=== PATIENT | female | born 1950 | race Caucasian/White ===

== ENCOUNTER 2021-04-06 10:30 | Outpatient (REF) | payer MEDICARE, SELFPAY ==
--- NOTE | ~2021-04-06 | MM_ITS ---
EXAMINATION: MM SCREENING DIGITAL BREAST TOMOSYNTHESIS, BILATERAL CLINICAL INFORMATION: Screening. Asymptomatic. The lifetime risk of breast cancer based on the Tyrer-Cuzick Model is 5%. COMPARISON: Mammography: 06/29/2019, 01/21/2017, 03/01/2015 TECHNIQUE: Digital breast tomosynthesis is performed in both the craniocaudal and mediolateral oblique views along with computer-aided detection (CAD). Synthesized 2D images are generated from the tomosynthesis. Additional right CC view is provided. FINDINGS: There are scattered areas of fibroglandular density (ACR BI-RADS breast composition Category b). There are no significant masses, abnormal calcifications, or other abnormalities. There is no developing density or interval mass or architectural abnormality. Parenchymal pattern is similar to prior studies. MM/MM tomosynthesis screening BI IMPRESSION: No mammographic evidence of malignancy. ASSESSMENT: BI-RADS 1: Negative RECOMMENDATION: Routine annual mammography screening. This patient's information was entered into a reminder system with a target due date for their next mammogram.
== END 2021-04-06 10:31 | disposition home or self-care (01) ==
LOC: HO.MAMMO 10:30
PROVIDERS: Visit Provider Internal Medicine
DX: Z12.31 Encounter for screening mammogram for malignant neoplasm of breast (principal)
CPT/HCPCS: 77063; 77067

== ENCOUNTER 2021-05-16 12:38 | Outpatient (REF) | payer MEDICARE, SELFPAY ==
[2021-05-16 13:34] LABS: MANUAL DIFF FLAG NO
[2021-05-16 13:42] LABS: Basophils Percent Auto 0.6 % (0-2); Eosinophils Absolute Auto 0.1 X10*3/uL (0.0-0.4); Eosinophils Percent Auto 0.9 % (0-4); Hematocrit 42.4 % (37-47); Hemoglobin 14.1 g/dl (12.0-16.0); Imm Gran Abs Auto 0.02 X10*3/uL (0.00-0.03); Imm Gran Pct Auto 0.3 % (0.0-0.4); Lymphocytes Absolute Auto 1.5 X10*3/uL (1.2-4.9); Lymphocytes Percent Auto 22.2 % (20-40); Mean Corpuscular HGB Conc 33.3 g/dl (31.0-35.0); Mean Corpuscular Hemoglobin 33.8 pg (27.0-33.0); Mean Corpuscular Volume 101.7 fL (80-98); Monocytes Absolute Auto 0.7 X10*3/uL (0.1-1.2); Neutrophils Absolute Auto 4.3 X10*3/uL (2.0-8.3); Platelet Count 244 X10*3/uL (160-400); Red Blood Count 4.17 X10*6/uL (4.20-5.50); Red Cell Distribution Width 12.5 % (11.0-16.0); White Blood Count 6.5 X10*3/uL (4.8-10.8)
[2021-05-16 14:09] LABS: Alanine Aminotransferase 11 U/L (0-31); Albumin Level 4.6 g/dL (3.5-5.0); Alkaline Phosphatase 61 U/L (39-117); Anion Gap 13 (12-20); Aspartate Amino Transferase 20 U/L (5-31); Bilirubin Total 0.6 mg/dL (0.0-1.0); Blood Urea Nitrogen 18 mg/dL (9-16); Calcium 10.2 mg/dL (8.4-10.2); Carbon Dioxide 27 mmol/L (22-29); Chloride 104 mmol/L (96-108); Cholesterol 238 mg/dL; Estimated Glomerular Filt Rate 60; Glucose Fasting 109 mg/dL (60-99); HDL Cholesterol 83 mg/dL; LDL Cholesterol Calculated 136 mg/dl; Potassium 4.1 mmol/L (3.3-5.1); Sodium 140 mmol/L (135-145); Total Protein 7.4 g/dL (6.5-8.0); Triglycerides 97 mg/dL
== END 2021-05-16 12:39 | disposition home or self-care (01) ==
LOC: HO.10HDL 12:38
PROVIDERS: Visit Provider Internal Medicine
DX: Z00.00 Encounter for general adult medical examination without abnormal findings (principal); E11.9 Type 2 diabetes mellitus without complications; E03.9 Hypothyroidism, unspecified
CPT/HCPCS: 36415; 80053; 80061; 84443; 85025

== ENCOUNTER 2022-05-08 10:56 | Outpatient (REF) | payer MEDICARE, SELFPAY ==
--- NOTE | ~2022-05-08 | MM_ITS ---
EXAMINATION: MM SCREENING DIGITAL BREAST TOMOSYNTHESIS, BILATERAL CLINICAL INFORMATION: Screening. Asymptomatic. The lifetime risk of breast cancer based on the Tyrer-Cuzick Model is 7%. COMPARISON: Mammography: 04/06/2021, 06/29/2019 TECHNIQUE: Digital breast tomosynthesis is performed in both the craniocaudal and mediolateral oblique views along with computer-aided detection (CAD). Synthesized 2D images are generated from the tomosynthesis. Additional right CC and right MLO views are provided. FINDINGS: There are scattered areas of fibroglandular density (ACR BI-RADS breast composition Category b). There are no significant masses, abnormal calcifications, or other abnormalities. No developing density or architectural abnormality. The axilla and skin contours are unremarkable. MM/MM tomosynthesis screening BI IMPRESSION: No mammographic evidence of malignancy. ASSESSMENT: BI-RADS 1: Negative RECOMMENDATION: Routine annual mammography screening. This patient's information was entered into a reminder system with a target due date for their next mammogram.
== END 2022-05-08 10:57 | disposition home or self-care (01) ==
LOC: HO.MAMMO 10:56
PROVIDERS: PCP Internal Medicine; Visit Provider Internal Medicine
DX: Z12.31 Encounter for screening mammogram for malignant neoplasm of breast (principal)
CPT/HCPCS: 77063; 77067

== ENCOUNTER 2022-12-05 09:15 | Outpatient (REF) | payer MEDICARE, SELFPAY ==
--- NOTE | ~2022-12-05 | XR_ITS ---
EXAMINATION: XR HIP, RIGHT CLINICAL INFORMATION: Pain COMPARISON: None TECHNIQUE: Two views of the right hip. FINDINGS: Mild degenerative osteoarthritic changes of the right hip evident by sclerotic changes of the acetabular roof and developed small osteophytes. No fracture or dislocation, adjacent pelvic bones are intact. Surrounding soft tissues unremarkable. XR/XR hip RT min 2V IMPRESSION: * Mild degenerative osteoarthritis. * No fracture.
[2022-12-05 09:28] LABS: MANUAL DIFF FLAG NO
[2022-12-05 09:42] LABS: Basophils Absolute Auto 0.1 X10*3/uL (0.0-0.2); Basophils Percent Auto 0.7 % (0-2); Eosinophils Absolute Auto 0.1 X10*3/uL (0.0-0.4); Eosinophils Percent Auto 1.2 % (0-4); Hematocrit 41.7 % (37.0-47.0); Hemoglobin 13.9 g/dl (12.0-16.0); Imm Gran Abs Auto 0.03 X10*3/uL (0.00-0.03); Imm Gran Pct Auto 0.4 % (0.0-0.4); Lymphocytes Absolute Auto 1.5 X10*3/uL (1.2-4.9); Lymphocytes Percent Auto 17.9 % (20-40); Mean Corpuscular HGB Conc 33.3 g/dl (31.0-35.0); Mean Corpuscular Hemoglobin 31.7 pg (27.0-33.0); Mean Platelet Volume 9.7 fL (9.4-12.3); Monocytes Absolute Auto 0.5 X10*3/uL (0.1-1.2); Neutrophils Absolute Auto 6.2 x10*3/uL (2.0-8.3); Neutrophils Percent Auto 73.8 % (45-73); Platelet Count 209 X10*3/uL (160-400); Red Blood Count 4.39 X10*6/uL (4.20-5.50); Red Cell Distribution Width 12.7 % (11.0-16.0); White Blood Count 8.4 X10*3/uL (4.8-10.8)
[2022-12-05 10:31] LABS: Alanine Aminotransferase 13 U/L (0-31); Albumin Level 4.7 g/dL (3.5-5.0); Alkaline Phosphatase 79 U/L (39-117); Anion Gap 11 (12-20); Aspartate Amino Transferase 21 U/L (5-31); Bilirubin Total 0.5 mg/dL (0.0-1.0); Blood Urea Nitrogen 15 mg/dL (9-16); Calcium 10.2 mg/dL (8.4-10.2); Carbon Dioxide 28 mmol/L (22-29); Chloride 106 mmol/L (96-108); Cholesterol 258 mg/dL; Estimated Glomerular Filt Rate > 60; Glucose Fasting 115 mg/dL (60-99); HDL Cholesterol 71 mg/dL; LDL Cholesterol Calculated 162 mg/dl; Potassium 4.2 mmol/L (3.3-5.1); Sodium 141 mmol/L (135-145); Total Protein 7.5 g/dL (6.5-8.0); Triglycerides 128 mg/dL
[2022-12-05 10:35] LABS: Thyroid Stimulating Hormone 1.32 uIU/mL (0.32-4.0)
== END 2022-12-05 09:16 | disposition home or self-care (01) ==
LOC: HO.LAB 09:15
PROVIDERS: PCP Internal Medicine; Visit Provider Internal Medicine
DX: M25.551 Pain in right hip (principal); E03.9 Hypothyroidism, unspecified; E78.5 Hyperlipidemia, unspecified; N28.9 Disorder of kidney and ureter, unspecified; D64.9 Anemia, unspecified
CPT/HCPCS: 36415; 73502; 80053; 80061; 84443; 85025

== ENCOUNTER 2023-05-10 11:15 | Outpatient (REF) | payer MEDICARE, SELFPAY ==
--- NOTE | ~2023-05-10 | MM_ITS ---
EXAMINATION: MM SCREENING DIGITAL BREAST TOMOSYNTHESIS, BILATERAL CLINICAL INFORMATION: Screening. Asymptomatic. The lifetime risk of breast cancer based on the Tyrer-Cuzick Model is 6%. COMPARISON: Mammography: 05/08/2022, 04/06/2021, 06/29/2019, 01/21/2017, 03/01/2015 TECHNIQUE: Digital breast tomosynthesis is performed in both the craniocaudal and mediolateral oblique views along with computer-aided detection (CAD). Synthesized 2D images are generated from the tomosynthesis. FINDINGS: There are scattered areas of fibroglandular density (ACR BI-RADS breast composition Category b). Breast tissue composition borders on heterogeneously dense in the upper outer quadrants. Parenchymal pattern is similar to prior studies and there is no developing density or interval architectural abnormality. There is fine fibronodular parenchymal pattern without significant mass, or abnormal calcifications, or other abnormalities. The axilla and skin contours are unremarkable. MM/MM tomosynthesis screening BI IMPRESSION: No mammographic evidence of malignancy. ASSESSMENT: BI-RADS 2: Benign RECOMMENDATION: Routine annual mammography screening. This patient's information was entered into a reminder system with a target due date for their next mammogram.
== END 2023-05-10 11:16 | disposition home or self-care (01) ==
LOC: HO.MAMMO 11:15
PROVIDERS: PCP Internal Medicine; Visit Provider Internal Medicine
DX: Z12.31 Encounter for screening mammogram for malignant neoplasm of breast (principal)
CPT/HCPCS: 77063; 77067

== ENCOUNTER 2023-07-25 16:18 | Outpatient (AMB) | payer MEDICARE, SELFPAY ==
[2023-07-25 16:24] VITALS: BP 118/72; BMI 22.2
--- NOTE | 2023-07-25 16:24 | MHC.PC.OV ---
Vital Signs 07/25/23 16:24 Height 4 ft 11.25 in Weight 111 lb BMI 22.2 BP 118/72 Blood Pressure Location Lt brachial Position Sitting Intake Visit Reasons: Trans. of Care from [facility] Intake Note: Patient here transferring of care from 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 Accompanied by: Self / Same As Patient Allergies Penicillins [PENICILLINS] Allergy (Intermediate, Verified 07/25/23 16:41) RASH penicillin V Allergy (Unknown, Verified 07/25/23 16:41) rash clams [CLAMS] Adverse Reaction (Intermediate, Verified 07/25/23 16:41) NAUSEA Medication List - Last Reconciled 07/25/23 by Bárbara Mehta MD alendronate 70 mg PO QWEEK latanoprost 0.005% 1 drp ophthalmic (eye) BEDTIME sertraline 100 mg PO DAILY timolol maleate 0.5% drps ophthalmic (eye) Tobacco use date assessed: 12/03/22 Fall risk assessment: No Falls in past year Last assessed Fall Risk: 07/25/23 Dental Screening Dental Screen Date: 07/25/23 Did you have a dental visit in the last 12 months?: Yes Did you have a dental problem in the last 6 months where you did not have access to dental care?: No Was dental information given to patient?: Patient has dentist HPI HPI Comments History of Present Illness Details This is a 72-year-old female with osteoporosis and pure hypercholesterolemia that comes today to establish care. On alendronate for the last 2 years and I told her that alendronate has to complete 5 years. Will have bone density soon. Last cholesterol was elevated and I will recheck lipid panel. Complains of a skin lesion that has 2 different colors. Will be referred to dermatology. She drinks alcohol daily and was advise to cut down in drinking alcohol. [facility] Surgical History History of wisdom tooth extraction History of rectal polypectomy Family History Father Heart attack Mother Ovarian cancer Maternal Grandmother Breast cancer Social History Housing: House Alcohol intake: current Alcohol intake frequency: a few times a week Alcohol type: beer Patient Tobacco Use Status: Current everyday Tobacco user Cigarettes Per Day: 10 e-Cigarette/Vaping Use: Never Used Second Hand Smoke Exposure: No service: No Current occupational status: retired Cognitive needs: No Hearing needs: No Vision needs: No Questionnaire PHQ-9 Over the last 2 weeks, how often have you been bothered by any of the following problems? 1. Little interest or pleasure in doing things: not at all 2. Feeling down, depressed, or hopeless: not at all 3. Trouble falling or staying asleep, or sleeping too much: not at all 4. Feeling tired or having little energy: not at all 5. Poor appetite or overeating: not at all 6. Feeling bad about yourself - or that you are a failure or have let yourself or your family down: not at all 7. Trouble concentrating on things, such as reading the newspaper or watching television: not at all 8. Moving or speaking so slowly that other people could have noticed. Or the opposite - being so fidgety or restless that you have been moving around a lot more than usual: not at all 9. Thoughts that you would be better off or of hurting yourself in some way: not at all Total score: 0 Depression Screening Interpretation: Negative 15381 - PHQ-9 Billing: Yes Source: Developed by Drs. Biju Cueva, Lianet Robertson, Torey Jenkins and colleagues, with an educational damian from [employer]. Thrive Questionnaire Date Thrive assessed: 07/25/23 I am a: Patient What is your living situation today?: I have a steady place to live Within the past 12 months, did the food you bought not last and you didn't have the money to get more?: Never true Within the past 12 months, did you worry whether your food would run out before you got money to buy more?: Never true Do you have trouble paying for medicines?: No Do you have trouble getting transportation to medical appointments?: No Do you have trouble paying your heating and electricity bill?: No Do you have trouble taking care of your child, family member or friend?: No Do you have trouble with day-to-day activities such as bathing, preparing meals, shopping, managing finances, etc.?: No Are you currently unemployed and looking for a job?: No Are you interested in more education?: No Please select the resources that you would like help with: None Currently or been in a relationship where the following occur: no concerns reported AUDIT C Alcohol Use Questionnaire (AUDIT-C) 1. How often do you have a drink containing alcohol?: 4 or more times a week 2. How many drinks containing alcohol do you have on a typical day when you are drinking?: 1 or 2 3. How often do you have six or more drinks on one occasion?: Never Total Score: 4 MAREK-7 AMB Questionnaire MAREK-7 Date MAREK - 7 assessed: 07/25/23 Feeling nervous, anxious, or on edge: 0 = Not at all Not being able to stop or control worryin = Not at all Worrying too much about different things: 0 = Not at all Trouble relaxin = Not at all Being so restless that it is hard to sit still: 0 = Not at all Becoming easily annoyed or irritable: 0 = Not at all Feeling afraid as if something awful might happen: 0 = Not at all Total MAREK-7 score (0-4 normal; 5-9 mild; 10-14 moderate; 15-21 severe): 0 Source: Developed by Drs. Biju Cueva, Lianet Robertson, Torey Jenkins and colleagues, with an educational damian from [employer]. MAREK-7 Assessment Billing MAREK-7 Assessment Tool: MAREK-7 Assessment 55613 Review of Systems Const All systems reviewed & are unremarkable except as noted in HPI and below Eyes Reports no additional complaints, Denies change in vision and Denies other visual disturbances Card Denies chest pain at rest, Denies chest pain with activity, Denies edema, Denies irregular heart rhythm, Denies claudication, Denies dyspnea, Denies dyspnea on exertion, Denies orthopnea, Denies paroxysmal nocturnal dyspnea and Denies slow heart rate Resp Denies cough, Denies dyspnea and Denies dyspnea on exertion GI Denies abdominal pain, Denies change in bowel habits, Denies excessive flatus, Denies nausea and Denies vomiting Denies urinary incontinence, Denies urinary hesitancy and Denies urinary urgency Musc Denies abnormal gait, Denies atrophy, Denies deformity and Denies limited range of motion Skin/Breast Denies bleeding lesions, Denies changing lesions and Denies rash Neuro Denies abnormal gait and Denies lack of coordination Physical exam (Primary Care) Vital Signs: Last Vital Signs BP 118/72 07/25/23 16:24 BMI result Body Mass Index 22.2 Tobacco/Smoking Status: Tobacco use Status Tobacco use date assessed 12/03/22 07/25/23 16:32 Patient Tobacco Use Status Current everyday Tobacco 07/25/23 16:32 e-Cigarette/Vaping Use Never Used 07/25/23 16:32 PHQ-9: PHQ-9 Score PHQ-9: Total score 0 07/25/23 16:53 Depression Screening Interpretation: Negative Thrive Assessment: Date of Thrive Assessment Date Thrive assessed 07/25/23 07/25/23 16:32 Currently or been in a relationship where the following occur: no concerns reported Eyes General: appearance normal, both eyes and all related structures Eyelids: Yes eyelids normal Conjunctivae: conjunctivae normal Neck Neck: Yes normal visual inspection and Yes supple Resp Effort & Inspection: normal respiratory effort Auscultation: clear to auscultation bilaterally Cardio Jugular venous distension: no JVD Rate: regular rate Rhythm: regular rhythm Heart sounds: S1 normal heart sound present and S2 normal heart sound present GI Inspection: Yes normal to inspection Palpation (GI): Soft to palpation and nontender Auscultation: normal bowel sounds Extrem General: Yes full ROM Assessment and Plan Assessment & Plan (1) Osteoporosis: Code(s): M81.0 - Age-related osteoporosis without current pathological fracture Plan: Continue Alendronate. (2) Pure hypercholesterolemia: Code(s): E78.00 - Pure hypercholesterolemia, unspecified Plan: Repeat lipid panel. (3) Skin lesion: Code(s): L98.9 - Disorder of the skin and subcutaneous tissue, unspecified Plan: Refer to dermatology. Orders: Orders Comprehensive [place]. Panel Fast 07/25/23 F10.10 - Alcohol abuse, uncomplicated Vitamin B12 and Folate 07/25/23 E53.8 - Deficiency of other specified B group vitamins Thyroid Stimulating Hormone 07/25/23 R41.3 - Other amnesia Referrals Dermatology Referral L98.9 - Disorder of the skin and subcutaneous tissue, unspecified Coding Level of Care Code Est Pt Level 3 (20474) Diagnoses Osteoporosis M81.0 Pure hypercholesterolemia E78.00 Skin lesion L98.9 Additional Codes MAREK-7 Assessment Billing - MAREK-7 Assessment Tool: MAREK-7 Assessment 15745 ([id number]) Time Spent (min) 19
== END 2023-07-25 17:01 | disposition home or self-care (01) ==
PROVIDERS: PCP Internal Medicine; Visit Provider Internal Medicine
DX: M81.0 Age-related osteoporosis without current pathological fracture (principal); E78.00 Pure hypercholesterolemia, unspecified; L98.9 Disorder of the skin and subcutaneous tissue, unspecified
CPT/HCPCS: 99213

== ENCOUNTER 2023-08-02 11:29 | Outpatient (REF) | payer MEDICARE, SELFPAY ==
[2023-08-02 13:24] LABS: Folate 16.3 ng/mL (> or = 4.0); Vitamin B12 701 pg/mL (200-900)
[2023-08-02 14:23] LABS: Alanine Aminotransferase 15 U/L (0-31); Albumin Level 4.9 g/dL (3.5-5.0); Alkaline Phosphatase 51 U/L (39-117); Anion Gap 16 (12-20); Aspartate Amino Transferase 24 U/L (5-31); Bilirubin Total 0.4 mg/dL (0.0-1.0); Blood Urea Nitrogen 15 mg/dL (9-16); Calcium 9.9 mg/dL (8.4-10.2); Carbon Dioxide 24 mmol/L (22-29); Chloride 104 mmol/L (96-108); Estimated Glomerular Filt Rate > 60; Glucose Fasting 90 mg/dL (60-99); Potassium 3.7 mmol/L (3.3-5.1); Sodium 140 mmol/L (135-145); Total Protein 7.9 g/dL (6.5-8.0)
== END 2023-08-02 11:30 | disposition home or self-care (01) ==
LOC: HO.LAB 11:29
PROVIDERS: PCP Internal Medicine; Visit Provider Internal Medicine
DX: R41.3 Other amnesia (principal); E53.8 Deficiency of other specified B group vitamins; F10.10 Alcohol abuse, uncomplicated
CPT/HCPCS: 36415; 80053; 82607; 82746; 84443

== ENCOUNTER 2024-04-16 11:44 | Outpatient (REF) | payer MEDICARE, SELFPAY | END 2024-04-16 11:45 | disposition home or self-care (01) | LOC: HO.HOSX 11:44 | PROVIDERS: Visit Provider Physician Assistant | DX: Z13.89 Encounter for screening for other disorder (principal) ==

== ENCOUNTER 2024-04-17 08:49 | Outpatient (AMB) | payer MEDICARE, SELFPAY ==
--- NOTE | 2024-04-17 09:16 | A.OFFVIS_ITS ---
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 Pain is felt in the groind of the right hip and wraps around the lateral aspect of the right hip. She also complaints of right knee pain. Pain described as a toothache, a constant aching/throbbing pain. She has tried and failed Aleve, Tylenol and application of Biofreeze with minimal relief. She is active in her garden. She doeds have osteoporosis and was taking Alendronate but discontinued this recently as she is only supposed to be taking this for 5 years. 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 She currently states she has constant throbbing ?toothache? type pain at the lateral aspect of her hip. She finds no relief with Aleve, Tylenol and minimal relief with application of Biofreeze. She is active in her garden. She has a history of osteoporosis. [facility] Surgical History History of wisdom tooth extraction History of rectal polypectomy Family History Father Heart attack Mother Ovarian cancer Maternal Grandmother Breast cancer Social History Housing: House Alcohol intake: current Alcohol intake frequency: a few times a week Alcohol type: beer Patient Tobacco Use Status: Current everyday Tobacco user Cigarettes Per Day: 10 e-Cigarette/Vaping Use: Never Used Second Hand Smoke Exposure: No service: No Current occupational status: retired Cognitive needs: No Hearing needs: No Vision needs: No Review of Systems Const All systems reviewed & are unremarkable except as noted in HPI and below Physical Exam Vital Signs: BMI result Body Mass Index 25.2 Const General: cooperative, healthy appearing, comfortable, no acute distress, well developed and alert Orientation/consciousness: patient oriented x3 HEENT Head: Yes normal to inspection, Yes normocephalic and Yes atraumatic Eyes General: appearance normal, both eyes and all related structures Resp Effort & Inspection: normal respiratory effort and able to speak in complete sentences Cardio Rate: regular rate Peripheral pulses: Peripheral pulses 2+ throughout GI Palpation (GI): Soft to palpation Skin Lesions: no lesions Rashes: no rashes Neuro General: patient oriented x3 Extrem Other: Right hip: Normal to inspection, ambulates with a slight limp. Has mild disco mfort with internal and extension rotation of hip. No significant stiffness. Mild discomfort with hip flexion against resistance. NVI. Results Reviewed Results Reviewed: XR hip RT min 2V IMPRESSION: * Mild degenerative osteoarthritis. * No fracture. Assessment & Plan Assessment & Plan (1) Osteoarthritis of right hip: Code(s): M16.11 - Unilateral primary osteoarthritis, right hip Category: Medical Plan We discussed options which include PT, NSAIDs and injections. The patient would like to proceed with intra-articular hip injection which will be obtained at the hospital under fluro. An order for PT wa also placed. She will contact our office 6 weeks post injection if symptoms persist and meet with Dr Ambrosio to discuss further options. Orders: Orders FL arthrogram hip RT 04/17/24 M16.11 - Unilateral primary osteoarthritis, right hip PT Evaluation and Treatment 04/17/24 M16.9 - Osteoarthritis of hip, unspecified XR hip RT min 2V 04/17/24 M25.551 - Pain in right hip Patient Instructions: Scribed for Pee Burns PA-C, by Claudy Marquez medical claims processor, on 04/17/2024 at 9:00 AM EST.? I, Pee Burns PA-C, have personally reviewed and agree with the information entered by the scribe. Coding Level of Care Code New Pt Level 3 (20967) Diagnoses Osteoarthritis of right hip M16.11
[2024-04-17 09:17] VITALS: BMI 25.2
== END 2024-04-17 10:28 | disposition home or self-care (01) ==
LOC: HO.HOS 08:49
PROVIDERS: PCP Internal Medicine; Visit Provider Physician Assistant
DX: M16.11 Unilateral primary osteoarthritis, right hip (principal)
CPT/HCPCS: 99203

== ENCOUNTER 2024-04-17 21:43 | Outpatient (REF) | payer MEDICARE, SELFPAY ==
--- NOTE | ~2024-04-17 | XR_ITS ---
EXAMINATION: XR HIP, RIGHT CLINICAL INFORMATION: Pain in right hip. COMPARISON: 12/05/2022. TECHNIQUE: AP view of the pelvis and 2 views of the right hip. FINDINGS: The bones are diffusely demineralized. Severe degenerative changes in the imaged lower lumbar spine. Bilateral sacroiliac joints are symmetric. Mild osteoarthritic changes right hip with joint space narrowing and acetabular hypertrophic change. Increased faint calcifications/ossifications adjacent to the greater trochanter. Alignment maintained. Mild degenerative changes on single AP view of the left hip. XR/XR hip RT min 2V IMPRESSION: 1. Mild osteoarthritic changes in the right hip. Increased faint calcifications/ossifications adjacent to the greater trochanter. 2. Severe degenerative changes in the imaged lower lumbar spine. 3. Additional imaging with CT scan or MRI should be considered for additional evaluation if there is clinical concern for fracture or other underlying pathology as these modalities are much more sensitive for detection of fracture or other underlying pathology.
== END 2024-04-17 21:44 | disposition home or self-care (01) ==
LOC: HO.HOSX 21:43
PROVIDERS: Visit Provider Physician Assistant
DX: M16.11 Unilateral primary osteoarthritis, right hip (principal)
CPT/HCPCS: 73502; 99202

== ENCOUNTER 2024-05-13 13:19 | Outpatient (REF) | payer MEDICARE, SELFPAY ==
--- NOTE | ~2024-05-13 | FL_ITS ---
FLUOROSCOPIC RIGHT HIP INTRA-ARTICULAR STEROID INJECTION INDICATIONS: Right hip pain. PROCEDURE: Risks and benefits and possible complications were discussed with the patient and the consent form was signed. The patient was placed hip on the fluoroscopy table. The right hip was prepped and draped in normal sterile fashion. 1% buffered lidocaine was used for anesthesia. A 22-gauge spinal needle was used to access the right hip joint. Intra-articular position of the needle within the hip joint was verified using 3 cc of Omnipaque 300. A total of 5 mL of 1% lidocaine and 80 mg Depo-Medrol was then injected into the hip joint. The needle was then removed and a Band-Aid was applied to the injection site. The patient tolerated the procedure well. There were no immediate complications. FL/FL arthrogram hip RT IMPRESSION: Successful fluoroscopic guided right hip intra-articular steroid injection. The procedure was performed by Reid Walker PA-C, and directly supervised by Dr. Lane.
== END 2024-05-13 13:20 | disposition home or self-care (01) ==
LOC: HO.XRAY 13:19
PROVIDERS: PCP Internal Medicine; Visit Provider Physician Assistant
DX: M16.11 Unilateral primary osteoarthritis, right hip (principal)
CPT/HCPCS: 27093; 73525

== ENCOUNTER → 2024-05-13 13:21 | Outpatient (BNV) | payer MEDICARE, SELFPAY | PROVIDERS: PCP Internal Medicine; Visit Provider Physician Assistant Surgical | DX: M16.11 Unilateral primary osteoarthritis, right hip (principal) | CPT/HCPCS: 20610; 77002 ==

== ENCOUNTER 2024-05-15 11:18 | Outpatient (REF) | payer MEDICARE, SELFPAY | END 2024-05-15 11:19 | disposition home or self-care (01) | LOC: HO.MAMMO 11:18 | PROVIDERS: PCP Internal Medicine; Visit Provider Internal Medicine | DX: Z12.31 Encounter for screening mammogram for malignant neoplasm of breast (principal) | CPT/HCPCS: 77063; 77067 ==

== ENCOUNTER → 2024-05-15 11:30 | Outpatient (BNV) | payer MEDICARE, SELFPAY | PROVIDERS: PCP Internal Medicine; Visit Provider Radiology Diagnostic Radiology | DX: Z12.31 Encounter for screening mammogram for malignant neoplasm of breast (principal) | CPT/HCPCS: 77063; 77067 ==

== ENCOUNTER 2024-05-27 08:14 | Outpatient (AMB) | payer MEDICARE, SELFPAY ==
[2024-05-27 08:20] VITALS: BP 136/90; PULSE 94; O2SAT 96; BMI 22.0
--- NOTE | 2024-05-27 08:20 | MHC.PC.OV ---
Vital Signs 05/27/24 08:20 Height 4 ft 11.06 in Weight 109 lb 0.6 oz BMI 22.0 BP 136/90 H Blood Pressure Location Lt brachial Position Sitting Pulse 94 Pulse Source Pulse Oximeter Pulse Oximetry (%) 96 Oxygen Delivery Method Room Air Intake Visit Reasons: Annual PE Intake Note: Patient is here today for a physical. [employer] Supervisor Required: No Accompanied by: Self / Same As Patient Allergies Penicillins [PENICILLINS] Allergy (Intermediate, Verified 05/27/24 08:52) RASH penicillin V Allergy (Unknown, Verified 05/27/24 08:52) rash clams [CLAMS] Adverse Reaction (Intermediate, Verified 05/27/24 08:52) NAUSEA Medication List - Last Reconciled 05/27/24 by Bárbara Mehta MD latanoprost 0.005% 1 drp ophthalmic (eye) BEDTIME sertraline 100 mg PO DAILY timolol maleate 0.5% drps ophthalmic (eye) Tobacco use date assessed: 05/27/24 Fall risk assessment: No Falls in past year Last assessed Fall Risk: 05/27/24 Dental Screening Dental Screen Date: 05/27/24 Did you have a dental visit in the last 12 months?: Yes Did you have a dental problem in the last 6 months where you did not have access to dental care?: No Was dental information given to patient?: Patient has dentist HPI HPI Comments History of Present Illness Details This is a 73-year-old female that comes for her physical exam. Last Pap smear was 2018. Last DEXA scan was 2018 showing osteoporosis and has been on alendronate since 2015 which this was discontinue this year. I will order another DEXA scan. Last colonoscopy was 2016 and she has history of tubular adenomas in the past and I will refer her to Gastroenterology for that matter. Mammogram done last month but results are still pending. [facility] Surgical History History of wisdom tooth extraction History of rectal polypectomy Family History Father Heart attack Mother Ovarian cancer Maternal Grandmother Breast cancer Social History Housing: House Alcohol intake: current Alcohol intake frequency: a few times a week Alcohol type: beer Patient Tobacco Use Status: Current everyday Tobacco user Cigarettes Per Day: 10 e-Cigarette/Vaping Use: Never Used Second Hand Smoke Exposure: No service: No Current occupational status: retired Cognitive needs: No Hearing needs: No Vision needs: No Questionnaire PHQ-9 Over the last 2 weeks, how often have you been bothered by any of the following problems? 1. Little interest or pleasure in doing things: not at all 2. Feeling down, depressed, or hopeless: not at all 3. Trouble falling or staying asleep, or sleeping too much: not at all 4. Feeling tired or having little energy: not at all 5. Poor appetite or overeating: not at all 6. Feeling bad about yourself - or that you are a failure or have let yourself or your family down: not at all 7. Trouble concentrating on things, such as reading the newspaper or watching television: not at all 8. Moving or speaking so slowly that other people could have noticed. Or the opposite - being so fidgety or restless that you have been moving around a lot more than usual: not at all 9. Thoughts that you would be better off or of hurting yourself in some way: not at all Total score: 0 Depression Screening Interpretation: Negative Depression Screening Done: Yes 24844 - PHQ-9 Billing: Yes Source: Developed by Drs. Biju Cueva, Lianet Robertson, Torey Jenkins and colleagues, with an educational damian from [employer]. Thrive Questionnaire Date Thrive assessed: 05/27/24 I am a: Patient What is your living situation today?: I have a steady place to live Within the past 12 months, did the food you bought not last and you didn't have the money to get more?: Never true Within the past 12 months, did you worry whether your food would run out before you got money to buy more?: Never true Do you have trouble paying for medicines?: No Do you have trouble getting transportation to medical appointments?: No Do you have trouble paying your heating and electricity bill?: No Do you have trouble taking care of your child, family member or friend?: No Do you have trouble with day-to-day activities such as bathing, preparing meals, shopping, managing finances, etc.?: No Are you currently unemployed and looking for a job?: No Are you interested in more education?: No Please select the resources that you would like help with: None THRIVE Score: 0 AUDIT C Alcohol Use Questionnaire (AUDIT-C) 1. How often do you have a drink containing alcohol?: 2-4 times a month 2. How many drinks containing alcohol do you have on a typical day when you are drinking?: 1 or 2 3. How often do you have six or more drinks on one occasion?: Never Total Score: 2 MAREK-7 AMB Questionnaire MAREK-7 Date MAREK - 7 assessed: 05/27/24 Feeling nervous, anxious, or on edge: 0 = Not at all Not being able to stop or control worryin = Not at all Worrying too much about different things: 0 = Not at all Trouble relaxin = Not at all Being so restless that it is hard to sit still: 0 = Not at all Becoming easily annoyed or irritable: 0 = Not at all Feeling afraid as if something awful might happen: 0 = Not at all Total MAREK-7 score (0-4 normal; 5-9 mild; 10-14 moderate; 15-21 severe): 0 Source: Developed by Drs. Biju Cueva, Lianet Robertson, Torey Jenkins and colleagues, with an educational damian from [employer]. MAREK-7 Assessment Billing MAREK-7 Assessment Tool: MAREK-7 Assessment 34738 Review of Systems Const All systems reviewed & are unremarkable except as noted in HPI and below Card Denies chest pain at rest, Denies chest pain with activity, Denies edema, Denies irregular heart rhythm, Denies claudication, Denies dyspnea, Denies dyspnea on exertion, Denies orthopnea, Denies paroxysmal nocturnal dyspnea and Denies slow heart rate Resp Denies cough, Denies dyspnea and Denies dyspnea on exertion GI Denies abdominal pain, Denies change in bowel habits, Denies excessive flatus, Denies nausea and Denies vomiting Physical exam (Primary Care) Vital Signs: Last Vital Signs Pulse 94 05/27/24 08:20 BP 136/90 H 05/27/24 08:20 Pulse Ox 96 05/27/24 08:20 Oxygen Delivery Method Room Air 05/27/24 08:20 BMI result Body Mass Index 22.0 Tobacco/Smoking Status: Tobacco use Status Tobacco use date assessed 05/27/24 05/27/24 08:27 Patient Tobacco Use Status Current everyday Tobacco 05/27/24 08:27 e-Cigarette/Vaping Use Never Used 05/27/24 08:27 Are you ready to quit: Yes Tobacco cessation counseling provided: Yes Items discussed: QuitWorks Relapse Prevention: discussed the importance of a supportive environment, discussed negative mood or depression after quitting, weight gain after smoking is common and discussed dietary, exercise and/or lifestyle changes Number of minutes spent counselin CPT code: 13854 - 4-10 Minutes PHQ-9: PHQ-9 Score PHQ-9: Total score 0 05/27/24 08:55 Depression Screening Interpretation: Negative Thrive Assessment: Date of Thrive Assessment Date Thrive assessed 05/27/24 05/27/24 08:27 HENND Head: Yes normal to inspection, Yes normocephalic and Yes atraumatic Ears: external ears normal Eyes General: appearance normal, both eyes and all related structures Eyelids: Yes eyelids normal Conjunctivae: conjunctivae normal Neck Neck: Yes normal visual inspection and Yes supple Resp Effort & Inspection: normal respiratory effort Auscultation: clear to auscultation bilaterally Cardio Jugular venous distension: no JVD Rate: regular rate Rhythm: regular rhythm Heart sounds: S1 normal heart sound present and S2 normal heart sound present GI Inspection: Yes normal to inspection Palpation (GI): Soft to palpation and nontender Auscultation: normal bowel sounds Skin General skin exam: no rashes or lesions noted Neuro General: no focal motor deficits Extrem General: Yes full ROM Psych Appearance: grossly normal Assessment and Plan Assessment & Plan (1) Physical exam: Code(s): Z00.00 - Encounter for general adult medical examination without abnormal findings Plan: Repeat in a year. Orders: Orders Lipid Panel Today Z00.00 - Encounter for general adult medical examination without abnormal findings Comprehensive [place]. Panel Fast Today Z00.00 - Encounter for general adult medical examination without abnormal findings XR DEXA axial skeleton Today N95.9 - Unspecified menopausal and perimenopausal disorder Vitamin D 25-OH Total Today E55.9 - Vitamin D deficiency, unspecified, M81.0 - Age-related osteoporosis without current pathological fracture Referrals Gastroenterology Referral Z12.11 - Encounter for screening for malignant neoplasm of colon Coding Level of Care Code Est Pt Prev Care >65y(45830) Diagnoses Physical exam Z00.00 Additional Codes MAREK-7 Assessment Billing - MAREK-7 Assessment Tool: MAREK-7 Assessment 02974 ([id number]) Vital Signs *Quality* - CPT code: 90667 - 4-10 Minutes ([id number]) Time Spent (min) 31
== END 2024-05-27 09:08 | disposition home or self-care (01) ==
PROVIDERS: PCP Internal Medicine; Visit Provider Internal Medicine
DX: Z00.00 Encounter for general adult medical examination without abnormal findings (principal); F17.210 Nicotine dependence, cigarettes, uncomplicated
CPT/HCPCS: 99397; 99406

== ENCOUNTER 2024-05-27 09:13 | Outpatient (REF) | payer MEDICARE, SELFPAY ==
[2024-05-27 11:15] LABS: Alanine Aminotransferase 22 U/L (0-31); Albumin Level 4.9 g/dL (3.5-5.0); Alkaline Phosphatase 74 U/L (39-117); Anion Gap 14 (12-20); Aspartate Amino Transferase 26 U/L (5-31); Bilirubin Total 0.7 mg/dL (0.0-1.0); Blood Urea Nitrogen 13 mg/dL (9-16); Calcium 10.1 mg/dL (8.4-10.2); Carbon Dioxide 28 mmol/L (22-29); Chloride 103 mmol/L (96-108); Cholesterol 294 mg/dL (<200); Estimated Glomerular Filt Rate > 60; Glucose Fasting 110 mg/dL (60-99); HDL Cholesterol 92 mg/dL (>40); LDL Cholesterol Calculated 181 mg/dL (<100); Potassium 4.2 mmol/L (3.3-5.1); Sodium 141 mmol/L (135-145); Total Protein 8.2 g/dL (6.5-8.0); Triglycerides 109 mg/dL (<150); Vitamin D 25-OH Total 68.1 ng/mL (>30)
== END 2024-05-27 09:14 | disposition home or self-care (01) ==
LOC: HO.10HDL 09:13
PROVIDERS: Visit Provider Internal Medicine
DX: Z00.00 Encounter for general adult medical examination without abnormal findings (principal); E55.9 Vitamin D deficiency, unspecified; M81.0 Age-related osteoporosis without current pathological fracture
CPT/HCPCS: 36415; 80053; 80061; 82306

== ENCOUNTER 2024-06-19 10:51 | Outpatient (REF) | payer MEDICARE, SELFPAY ==
--- NOTE | ~2024-06-19 | MM_ITS ---
EXAMINATION: BONE DENSITOMETRY CLINICAL INDICATION: Unspecified menopausal and perimenopausal disorder. COMPARISON: This is the patient's baseline examination. TECHNIQUE: Using a MR Presta DXA System (software version: 13.1) manufactured by [employer], dual-energy x-ray absorptiometry was performed of the lumbar spine and left hip. The images are of good technical quality. Summary results are attached. FINDINGS: LEFT FEMUR, NECK: BMD 0.702 g/cm2, Z-score -0.2, T-score -2.4, osteopenia. LEFT FEMUR, TOTAL: BMD 0.782 g/cm2, Z-score 0.2, T-score -1.8, osteopenia. AP SPINE L1-L2 (excluding L3 and L4): The data of L1-L4 has been changed to exclude the L3 and L4 vertebral bodies, because degenerative sclerosis at these levels may cause overestimation of lumbar spine density. BMD 1.249 g/cm2, Z-score 2.9, T-score 0.7, normal. IDENTIFIED RISK FACTORS: Osteoporosis, current smoker, height loss, low calcium intake, history of fracture (adult), menopause, osteoporosis. HISTORY OF FRACTURE: Other. MEDICATIONS: Calcium supplements or multivitamin, vitamin D. MM/XR DEXA axial skeleton IMPRESSION: 1. DIAGNOSIS: Osteopenia based on the lowest T-score value of -2.4 in the femoral neck applying World Health Organization criteria. 2. 10-YEAR FRACTURE RISK PREDICTION, FRAX: Major osteoporotic fracture (clinical spine, forearm, hip or shoulder) 23.6%. Hip fracture 10.0%. 3. Treatment Recommendations: NOF guidelines recommend consideration for treatment in postmenopausal women and men age 50 and older presenting with the following: -A hip or vertebral (clinical or morphometric) fracture. -T-score less than or equal to -2.5 at the femoral neck or spine after appropriate evaluation to exclude secondary causes. -Low bone mass at the hip or spine and a 10-year fracture probability by FRAX of greater than or equal to 3% for hip fracture or greater than or equal to 20% for major osteoporotic fracture based on the [place] adapted WHO algorithm. 4. Other Recommendations: All treatment decisions require clinical judgment and consideration of individual patient factors, including patient preferences, comorbidities, previous drug use, risk factors not captured in the FRAX model (e.g. frailty, falls, vitamin D deficiency, increased bone turnover, interval significant decline in bone density) and possible under or overestimation of fracture risk by FRAX. Additional medical evaluation for secondary cause of low bone mineral density may be appropriate. FUTURE SCAN RECOMMENDATION: People with diagnosed cases of osteoporosis or at high risk for fracture should have regular bone mineral density tests. For patients eligible for Medicare, routine testing is allowed once every 2 years. The testing frequency can be increased to one year for patients who have rapidly progressing disease, those who are receiving or discontinuing medical therapy to restore bone mass, or have additional risk factors.
== END 2024-06-19 10:52 | disposition home or self-care (01) ==
LOC: HO.MAMMO 10:51
PROVIDERS: PCP Internal Medicine; Visit Provider Internal Medicine
DX: Z13.820 Encounter for screening for osteoporosis (principal); Z78.0 Asymptomatic menopausal state
CPT/HCPCS: 77080

== ENCOUNTER 2024-07-22 09:08 | Outpatient (AMB) | payer MEDICARE, SELFPAY ==
--- NOTE | 2024-07-22 09:20 | A.OFFVIS_ITS ---
Vital Signs 07/22/24 09:23 Height 4 ft 11 in Weight 111 lb 6 oz BMI 22.5 BP 144/80 H Blood Pressure Location Rt brachial Position Sitting Respiration 16 Pulse 71 Pulse Source Pulse Oximeter Pulse Oximetry (%) 96 Oxygen Delivery Method Room Air Intake Visit Reasons: INP-Cognitive Imp Intake Note: Pt presents for new pt consultation for cognitive impairment. Mfg Assoc Required: No Allergies Penicillins [PENICILLINS] Allergy (Intermediate, Verified 07/22/24 09:22) RASH penicillin V Allergy (Unknown, Verified 07/22/24 09:22) rash clams [CLAMS] Adverse Reaction (Intermediate, Verified 07/22/24 09:22) NAUSEA Medication List - Last Reconciled 07/22/24 by Eugenia Veliz MD calcium carbonate-vitamin D3 500 mg-10 mcg (400 unit) (Oyster Shell Calcium- Vitamin D3) 1 tab PO BID 90 days latanoprost 0.005% 1 drp ophthalmic (eye) BEDTIME sertraline 100 mg PO DAILY timolol maleate 0.5% drps ophthalmic (eye) HPI Comments Details: 73y/o right handed female comes for evaluation of memory issues. she has a sister who is 10 years older than her and has significant memory issues so she is concerned. Her also noticed intermittent memory issues for 2 years.she is here alone for the appointment and feels she does not have difficulties but according to her she has short term memory issues and difficulty recalling words. Patient is a chronic smoker - 25pack years.She denies head injuries. Other that her sister- no other family members with dementia Mood is stable she drinks 1 glass of wine or beer everyday. she denies any sleep issues. 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 [facility] Medical History (Updated 07/22/24 @ 10:24 by Eugenia Veliz MD) Memory loss Pure hypercholesterolemia Skin lesion Mild cognitive impairment Osteoarthritis of right hip Osteopenia Surgical History History of wisdom tooth extraction History of rectal polypectomy Family History Father Heart attack Mother Ovarian cancer Maternal Grandmother Breast cancer Social History Housing: House Alcohol intake: current Alcohol intake frequency: a few times a week Alcohol type: beer Patient Tobacco Use Status: Current everyday Tobacco user Cigarettes Per Day: 10 e-Cigarette/Vaping Use: Never Used Second Hand Smoke Exposure: No service: No Current occupational status: retired Cognitive needs: No Hearing needs: No Vision needs: No Physical Exam Vital Signs: Last Vital Signs Pulse 71 07/22/24 09:23 Resp 16 07/22/24 09:23 BP 144/80 H 07/22/24 09:23 Pulse Ox 96 07/22/24 09:23 Oxygen Delivery Method Room Air 07/22/24 09:23 BMI result Body Mass Index 22.5 Const General: cooperative, healthy appearing and comfortable Nutritional Appearance: average body habitus Orientation/consciousness: patient oriented x3 Eyes Pupils: Equal, round and reactive pupils present Neuro Other: MOCA General: patient oriented x3, gait normal, tone normal, moves all extremities and no focal motor deficits Cranial nerves: Yes Facial sensation intact/muscles of mastication intact, Yes Equal, round and reactive pupils present, Yes Bilaterally intact EOM present, Yes Nystagmus not present, Yes Normal facial strength present, Yes Midline tongue present, Yes Symmetric palate elevation present and Yes Ability to bilaterally elevate shoulders present Cognition (Neuro): normal cognition Gait exam (Neuro): Normal gait present Motor exam (neuro): 5/5 motor strength present throughout and Normal motor muscle tone present throughout Deep tendon reflexes (DTR's): Right triceps reflex intensity grade: 1+, Left triceps reflex intensity grade: 1+, Rt Biceps (C5, C6): 1+, Left biceps reflex intensity grade: 1+, Right brachioradialis reflex intensity grade: 1+, Left brachioradialis reflex intensity grade: 1+, Right patellar reflex intensity grade: 1+ and Left patellar reflex intensity grade: 1+ Coordination: [id number] test normal Psych Appearance: grossly normal Speech and movement: Normal speech and movement present Affect: normal affect Assessment & Plan Assessment & Plan (1) Memory loss: Comment: likely age related she did well on MOCA - see attached Code(s): R41.3 - Other amnesia Category: Medical Plan Reviewed labs [place] brain to r/o white matter disease and other structural causes. F/u as needed Continue exercise Orders: Orders MR head/brain wo con Today R41.3 - Other amnesia Coding Level of Care Code New Pt Level 4 (79873) Diagnoses Memory loss R41.3
[2024-07-22 09:23] VITALS: BP 144/80; PULSE 71; RESP 16; O2SAT 96; BMI 22.5
== END 2024-07-22 10:29 | disposition home or self-care (01) ==
PROVIDERS: PCP Internal Medicine; Visit Provider Psychiatry & Neurology Neurology
DX: R41.3 Other amnesia (principal)
CPT/HCPCS: 99204

== ENCOUNTER → 2024-07-22 09:08 | Outpatient (BNVA) | payer MEDICARE, SELFPAY | PROVIDERS: PCP Internal Medicine; Visit Provider Psychiatry & Neurology Neurology | DX: R41.3 Other amnesia (principal) | CPT/HCPCS: 99202 ==

== ENCOUNTER → 2024-08-09 10:46 | Outpatient (BNV) | payer MEDICARE, SELFPAY | PROVIDERS: PCP Internal Medicine; Visit Provider Radiology Diagnostic Radiology | DX: I67.6 Nonpyogenic thrombosis of intracranial venous system (principal) | CPT/HCPCS: 70551 ==

== ENCOUNTER 2024-08-09 10:51 | Outpatient (REF) | payer MEDICARE, SELFPAY ==
--- NOTE | ~2024-08-09 | MR_ITS ---
EXAMINATION: MR BRAIN WITHOUT CONTRAST CLINICAL INFORMATION: Anosmia. Numbness. Vertigo. COMPARISON: No priors. Correlated to CT dated July 31, 2019. TECHNIQUE: MRI of the brain was obtained using routine sequences without contrast. FINDINGS: Exam submitted for interpretation on 09/15/2024. There is hyperintense T2 and increased FLAIR signal within the lumen of the left sigmoid and transverse sinuses into the left jugular bulb. No restricted diffusion. No acute intracranial hemorrhage, mass effect, midline shift, hydrocephalus or herniation. Gutiérrez-white matter differentiation is normal. Multifocal old lacunar infarcts with a cribriform shaped bladder involving basal ganglia and hill radiata. Sellar/suprasellar region is normal. Craniocervical junction is intact and normal. No air-fluid levels in the included paranasal sinuses. Hyperintense T2 signal in the right mastoid air cells. MR/MR head/brain wo con IMPRESSION: Slow flow versus sinus thrombosis, left sigmoid and transverse sinuses into the left jugular bulb. Discussed with the referring physician on 09/15/2024 at 2:41 PM. Small vessel occlusive disease. No acute stroke/ ischemia Electronically signed by: Nicolas Freeman MD 09/15/2024 02:42 PM EDT
== END 2024-08-09 10:52 | disposition home or self-care (01) ==
LOC: HO.MRI 10:51
PROVIDERS: PCP Internal Medicine; Visit Provider Psychiatry & Neurology Neurology
DX: R41.3 Other amnesia (principal)
CPT/HCPCS: 70551

== ENCOUNTER 2024-08-25 11:09 | Outpatient (REF) | payer MEDICARE, SELFPAY ==
--- NOTE | ~2024-08-25 | CT_ITS ---
EXAMINATION: CT SINUS WITHOUT CONTRAST CLINICAL INFORMATION: Sinonasal polyp, deviated septum. COMPARISON: CT head and facial bones 07/31/2019. TECHNIQUE: Spiral noncontrast CT of the paranasal sinuses and maxillofacial region was performed in axial plane. Examination was carried out from the inferior maxilla to the mid temporal parietal bones, just above the petrous ridges. Sagittal, coronal, and thin section axial reformatted images were reconstructed from the axial data set. This CT examination was performed using dose optimization techniques as appropriate, variously including the following: *Automated exposure control *Adjustment of mA and/or kV according to patient size (this includes techniques or standardized protocols for targeted exams where dose is matched to indication/reason for exam; i.e. extremities or head) *Use of iterative reconstruction technique DLP: 82 mGy-cm FINDINGS: POSTOPERATIVE FINDINGS: MAXILLARY DENTAL FINDINGS: -There is periapical lucency surrounding the root tip of tooth #6, as well as the distal root tips of #3. NASAL CAVITY: -Thickening of the anterosuperior membranous nasal septum, potentially consistent with polyp, measuring approximately 2.7 x 0.9 x 1.0 cm (AP, TRV, CC); (series 2, image 20). -Mild rightward nasal septal deviation with a tiny spur, minimally encroaching upon the right middle meatus. -Posterior nasopharynx normal. TURBINATES: -Middle turbinates are partially paradoxical.. Left lamellar cell. Opacified right lamellar cell. Otherwise they demonstrate normal morphology and appearance. -Inferior turbinates are normal in appearance. -Superior turbinates are normal in appearance. MAXILLARY SINUSES: -There is a small amount of mucosal thickening in the dependent and right posterior lateral maxillary antrum. -The left maxillary sinus is normally aerated. -Both maxillary ostia demonstrate patent air channels. ETHMOID SINUSES: -Minimal patchy mucosal thickening anterior left ethmoid air cells. -Otherwise, anterior and posterior ethmoid cells are normally pneumatized. FRONTAL SINUSES: -Normally pneumatized bilaterally. -Frontal recesses are patent bilaterally. SPHENOID SINUSES: -Normally Pneumatized bilaterally. -Sphenoethmoidal recesses are patent bilaterally. PREOPERATIVE ANATOMY: -There are type III cribriform plates. The right is slightly lower. -The fovea ethmoidalis and lateral lamella are symmetric. -Both anterior ethmoid canals are -Closed and orbital contents appear normal. No discrete extracranial soft tissue abnormality. 876 Surrounded by air. ADDITIONAL FINDINGS: -Mild degenerative changes left TM joint CT/CT sinus wo IV con IMPRESSION: 1. There is periapical lucency surrounding the root tip of tooth #6, as well as the distal root tips of tooth #3. These findings can produce right maxillary sinus symptoms. 2. Minimal right maxillary and anterior left ethmoid paranasal sinus disease. No air-fluid levels or evidence of significant opacification. All major drainage pathways are patent. 3. Suspect small polyp in the anterior membranous nasal septum. 4. Anatomical variations as discussed. Electronically signed by: Enrique Lane MD 10/26/2024 12:48 PM EST
== END 2024-08-25 11:10 | disposition home or self-care (01) ==
LOC: HO.CT 11:09
PROVIDERS: PCP Internal Medicine; Visit Provider Otolaryngology
DX: J33.0 Polyp of nasal cavity (principal); J34.2 Deviated nasal septum
CPT/HCPCS: 70486

== ENCOUNTER → 2024-08-25 11:12 | Outpatient (BNV) | payer MEDICARE, SELFPAY | PROVIDERS: PCP Internal Medicine; Visit Provider Radiology Diagnostic Radiology | DX: J33.9 Nasal polyp, unspecified (principal) | CPT/HCPCS: 70486 ==

== ENCOUNTER 2024-10-02 07:54 | Outpatient (REF) | payer MEDICARE, SELFPAY ==
--- NOTE | ~2024-10-02 | MR_ITS ---
EXAMINATION: MRV with contrast. CLINICAL INFORMATION: Intracranial and intraspinal phlebitis and thrombophlebitis. COMPARISON: No priors. Correlated to MRI brain dated August 09, 2024. TECHNIQUE: Coronal 2-D [id number] and maximum intensity projections with IV contrast administration of gadolinium. Total of 10 cc given without reported immediate complications. Sagittal twist sequences. Sagittal twist with subtraction sequences. FINDINGS: Submitted for interpretation on October 05, 2024. No intraluminal filling defects within the main cerebral venous sinuses. Dominant right transverse and sigmoid sinuses. Internal cerebral veins, vein of Tonny and straight sinuses demonstrate normal enhancement pattern without intraluminal filling defects. MR/MR venography head wo/w con IMPRESSION: No cerebral venous sinus thrombosis. Negative exam. Electronically signed by: Nicolas Freeman MD 10/05/2024 08:00 AM ALIA
[2024-10-02] MEDS: gadobutroL 10 ML VIAL IVPUSH (13:58)
== END 2024-10-02 23:59 | disposition home or self-care (01) ==
LOC: HO.MRI 07:54
PROVIDERS: PCP Internal Medicine; Visit Provider Psychiatry & Neurology Neurology
DX: G08 Intracranial and intraspinal phlebitis and thrombophlebitis (principal)
CPT/HCPCS: 70546; A9585

== ENCOUNTER → 2024-10-02 13:07 | Outpatient (BNV) | payer MEDICARE, SELFPAY | PROVIDERS: PCP Internal Medicine; Visit Provider Radiology Diagnostic Radiology | DX: I67.6 Nonpyogenic thrombosis of intracranial venous system (principal) | CPT/HCPCS: 70546 ==

== ENCOUNTER 2025-01-22 11:32 | Outpatient (REF) | payer MEDICARE, SELFPAY ==
[2025-01-24 10:42] LABS: H Pylori Breath Test Negative (Negative)
== END 2025-01-22 11:33 | disposition home or self-care (01) ==
LOC: HO.LAB 11:32
PROVIDERS: Physician Assistant; PCP Internal Medicine
DX: R10.9 Unspecified abdominal pain (principal); R14.0 Abdominal distension (gaseous); R19.7 Diarrhea, unspecified
CPT/HCPCS: 83013; 99212

== ENCOUNTER 2025-01-22 11:32 | Outpatient (AMB) | payer MEDICARE, SELFPAY ==
[2025-01-22 12:44] VITALS: BP 130/74; PULSE 90; TEMP 36.7; O2SAT 96; BMI 22.4
--- NOTE | 2025-01-22 12:44 | AM.OFFWIN_ITS ---
Intake Vital Signs 01/22/25 12:44 Height 4 ft 11 in Weight 111 lb BMI 22.4 BP 130/74 Blood Pressure Location Lt brachial Position Sitting Pulse 90 Pulse Source Pulse Oximeter Temp 98.1 F Temp Source Oral Pulse Oximetry (%) 96 Oxygen Delivery Method Room Air Intake Visit Reasons: EP severe stomach pain Intake Note: pt is here for severe stomach pain Patient Tobacco Use Status: Current everyday Tobacco user Allergies Penicillins [PENICILLINS] Allergy (Intermediate, Verified 01/22/25 12:57) RASH penicillin V Allergy (Unknown, Verified 01/22/25 12:57) rash clams [CLAMS] Adverse Reaction (Intermediate, Verified 01/22/25 12:57) NAUSEA Do you need a note to return to daycare/school/sports/work: No HPI HPI Comments History of Present Illness Details History of Present Illness - The patient is a 74-year-old female h ere with her presenting with recurrent diarrhea, bloating and abdominal pain. - Episodes began about a month ago, last ing a few days, self resolving, with the third episode happening most recently last weekend. - Diarrhea typically starts at night and is accompanied by bloating and abdominal pain. - The pain is generalized in the abdomin al region, with no specific focus. - Nausea present but no vomiting; absenc e of fever and blood or black in stools noted. - Diet or eating does not appear to lani elate with symptom onset. - Previous use of OTC medications like G aviscon did not alleviate symptoms. - The patient is scheduled for a colonos copy next week. Physical Exam General: Cooperative, healthy appearing, comfortable, no acute distress and well developed Orientation: Patient oriented x3 Limitations: Limited due to abdominal pain Head: Normal to inspection Ears: Hearing grossly normal bilaterally Nose: Normal external nose present Face and sinus: Normal facial exam Eyes: Appearance normal, both eyes and all related structures Neck: Normal visual inspection and Yes full ROM Respiratory: Normal respiratory effort and able to speak in complete sentences. GI: soft, normoactive bs, no TTP, negative Spear's Skin: No rashes or lesions noted Neuro: Patient oriented x3 Extremities: Normal to inspection [facility] Medical History (Updated 01/22/25 @ 13:[address]rie PA-C) Memory loss Pure hypercholesterolemia Skin lesion Mild cognitive impairment Osteoarthritis of right hip Osteopenia Surgical History History of wisdom tooth extraction History of rectal polypectomy Family History Father Heart attack Mother Ovarian cancer Maternal Grandmother Breast cancer Social History Housing: House Alcohol intake: current Alcohol intake frequency: a few times a week Alcohol type: beer Patient Tobacco Use Status: Current everyday Tobacco user Cigarettes Per Day: 10 e-Cigarette/Vaping Use: Never Used Second Hand Smoke Exposure: No service: No Current occupational status: retired Cognitive needs: No Hearing needs: No Vision needs: No Review of Systems Const All systems reviewed & are unremarkable except as noted in HPI and below Physical Exam Vital Signs: Last Vital Signs Temp 98.1 F 01/22/25 12:44 Pulse 90 01/22/25 12:44 BP 130/74 01/22/25 12:44 Pulse Ox 96 01/22/25 12:44 Oxygen Delivery Method Room Air 01/22/25 12:44 BMI result Body Mass Index 22.4 Assessment & Plan Assessment & Plan (1) Abdominal pain in female: Code(s): R10.9 - Unspecified abdominal pain Plan: Due to the patient's recurrent diarrhea, bloating and abdominal pain, I plan to conduct a breath test for Helicobacter pylori infection, suspecting it as a potential cause. If positive, treatment will involve antibiotics as part of a triple therapy regimen. The patient may take Pepto-Bismol for symptomatic relief while waiting for results. A colonoscopy is already scheduled for further gastrointestinal evaluation. Instructed the patient to seek immediate medical attention if her condition worsens or if additional symptoms such as fever or blood in stools occur. Patient was informed and verbally consented to the use of an ambient scribe for clinic note documentation during this visit. (2) Abdominal bloating: Code(s): R14.0 - Abdominal distension (gaseous) Plan: as above (3) Diarrhea: Code(s): R19.7 - Diarrhea, unspecified Qualifiers: Diarrhea type: unspecified type Qualified Code(s): R19.7 - Diarrhea, unspecified Plan: as above Orders: Orders H Pylori Breath Test Today R10.9 - Unspecified abdominal pain, R14.0 - Abdominal distension (gaseous), R19.7 - Diarrhea, unspecified Coding Level of Care Code Est Pt Level 4 (32674) Diagnoses Abdominal pain in female R10.9 Abdominal bloating R14.0 Diarrhea, unspecified type R19.7 Diarrhea type: unspecified type
--- OUTSIDE RECORDS SUMMARY | 2025-01-22 13:28 | XMS_ITS ---
Author Organization [facility] Address [address] [place] [address] Care Team Providers Care Sap Consultant Name Role Phone Bárbara Plummer Primary Care Provider Unavailab Biju Tolliver Unavailable [phone] Allergies Allergen (clinical drug ingredient) Drug/Non Drug Allergy documented on EMR Reaction Allergy Type Onset Date Status Penicillin Unknown Drug Allergy Active REASON FOR VISIT Patient presents today for a COLON SCREENING Medications Medication SIG (Take, Route, Fr equency, Duration) Notes Start Date End Date Status Sertraline HCl 100 MG 1 tablet Orally Once a day Active Multi Vitamin/Minerals Orally Active Timolol Maleate 0.5 % Ophthalmic for 80 Active Latanoprost 0.005 % 1 drop into affected eye in the evening Ophthalmic Once a day Active Problems Problem Type SNOMED Code ICD Code Onset Dates Problem Status W/U Status Risk Notes Problem Pre-procedure evaluation check (525815109) Encounter for other preprocedural examination (Z01.818) Active confirmed Vital Signs Blood pressure systolic 00 mm Hg 10/08/20 24 Blood pressure diastolic 00 mm Hg 024 Height 4 ft 11 in in 10/08/2024 Weight 110 lbs 10/08/2024 BMI 22.21 kg/m2 10/08/2024 Encounters Encounter Location Date Provider Diagnosis [facility] [address] [place] [phone] 10/08/2024 Biju Mccormick History of adenomato us polyp of colon Z86.010 ; Encounter for other preprocedural examination Z01.818 and Encounter for screening for malignant neoplasm of colon Z12.11 Assessments Encounter Date Diagnosis (ICD Code) Assessment Notes Treatment Notes Treatment Clinical Notes Section Notes 10/08/2024 History of adenomatous polyp of colon (ICD-10 - Z86.010) Overall, Radha appears well. Given her personal history of tubular adenomas of the colon and her last colonoscopy being back in 2015, I did recommend a followup colonoscopy for further screening purposes. We did review the rationale for that in regard to colon cancer prevention. Full consent is obtained for this, including risks of bleeding and perforation. The procedure will be done with monitored anesthesia care. Radha was comfortable with this plan. Thank you again for allowing me to participate in Radha's care. I shall continue to keep you advised of her progress. 10/08/2024 Encounter for other preprocedural examination (ICD-10 - Z01.818) Overall, Radha appears well. Given her personal history of tubular adenomas of the colon and her last colonoscopy being back in 2015, I did recommend a followup colonoscopy for further screening purposes. We did review the rationale for that in regard to colon cancer prevention. Full consent is obtained for this, including risks of bleeding and perforation. The procedure will be done with monitored anesthesia care. Radha was comfortable with this plan. Thank you again for allowing me to participate in Radha's care. I shall continue to keep you advised of her progress. 10/08/2024 Encounter for screening for malignant neoplasm of colon (ICD-10 - Z12.11) Overall, Radha appears well. Given her personal history of tubular adenomas of the colon and her last colonoscopy being back in 2015, I did recommend a followup colonoscopy for further screening purposes. We did review the rationale for that in regard to colon cancer prevention. Full consent is obtained for this, including risks of bleeding and perforation. The procedure will be done with monitored anesthesia care. Radha was comfortable with this plan. Thank you again for allowing me to participate in Radha's care. I shall continue to keep you advised of her progress. Plan Of Treatment Future Test Test Name Order Date COLONOSCOPY 10/08/2024 Next Appt Details Follow Up: prn, Reason: Provider Name:Biju Mccormick , 01/27/2025 10:20:00 AM, [address] [place] [address] , [place], [place], [phone], Progress Notes * RADHA SCHMIDT ADOB: [birth year] (73 yo F)Acc No.[id number]:10/08/2024 Progress Notes Patient:RADHA LOUISE Provider:?Biju Mccormick MD :1950???Age:73 Y???Sex:Female D ate:10/08/2024 Address:[address] [place], [place] [id number] Pcp:Bárbara Mehta Subjective: * Chief Complaints: * ???Patient presents today fo r a COLON SCREENING * HPI: ???incontinence:? I saw Radha in the office today for evaluation of her personal history of tubular adenomas of the colon and need for colorectal cancer screening. ?I last saw Radha in 2016, at which time she underwent a followup screening colonoscopy with removal of tubular adenomas. She presently feels well. She enjoys a good appetite and denies any significant heartburn or dysphagia. Her bowel movements have been regular and without any signs of bleeding. She denies abdominal pain, jaundice, nor unintentional weight loss. She denies any known family history of colon cancer. * ROS:?General/Constitutional:?Change in appetite?denies.?Chills?denies.?Fatigue?denies.?Ophthalmologic:?Comments?all negative.?ENT:?Comments?all negative.?Respiratory:?hemoptysis?denies.?Cough?denies.?Cardiovascular:?Chest pain?denies.?Orthopnea?denies.?Gastrointestinal:?Comments?See HPI for details.?Genitourinary:?Hematuria?denies.?Dysuria?denies.?Musculoskeletal:?Painful joints?denies.?Weakness?denies.?Skin:?Itching?denies.?Rash?denies.?Neurologic:?Headache?denies.?Seizures?denies.?Psychiatric:?Comments?all negative.? * Medical History:? * Surgical History:?[place] petr th extraction Cauterization for epistaxis * Hospitalization/Major Diagno stic Procedure:?No Hospitalization History. * Family History:?Father: dece ased, diagnosed with Heart disease.?Mother: .? No colitis, celiac disease, nor colorectal cancer. * Social History:?Tobacco Use:?Tobacco Use/Smoking?Are you a: current smoker , How often do you smoke cigarettes?: every day, How many cigarettes a day do you smoke?: 6-10, How soon after you wake up do you smoke your first cigarette?: after 60 minutes, Are you interested in quitting?: Ready to quit.?Drugs/Alcohol:?Alcohol Screen?Points: 4, Interpretation: Positive.?Miscellaneous:?Marital status: . Occupation: retired. ???Smoker 1/2 ppd; 1-2 drinks per day. * Medications:?TakingSertralin e HCl 100 MG Tablet 1 tablet Orally Once a dayLatanoprost 0.005 % Solution 1 drop into affected eye in the evening Ophthalmic Once a dayMulti Vitamin/Minerals Tablet Orally Timolol Maleate 0.5 % Solution Ophthalmic Taking Sertraline HCl 100 MG Tablet 1 tablet Orally Once a dayTaking Latanoprost 0.005 % Solution 1 drop into affected eye in the evening Ophthalmic Once a dayTaking Multi Vitamin/Minerals Tablet Orally Taking Timolol Maleate 0.5 % Solution Ophthalmic DiscontinuedAlendronate Sodium 70 MG Tablet 1 tablet Orally Once a daySimvastatin 20 MG Tablet 1 tablet in the evening Orally Once a dayAspir-81 81 MG Tablet Delayed Release 1 tablet Orally Once a dayColyte w Flavor Packs 240 GM Solution Reconstituted as directed Orally as directedMedication List reviewed and reconciled with the patientDiscontinued Alendronate Sodium 70 MG Tablet 1 tablet Orally Once a dayDiscontinued Simvastatin 20 MG Tablet 1 tablet in the evening Orally Once a dayDiscontinued Aspir-81 81 MG Tablet Delayed Release 1 tablet Orally Once a dayDiscontinued Colyte w Flavor Packs 240 GM Solution Reconstituted as directed Orally as directedMedication List reviewed and reconciled with the patient * Allergies:?Penicillinyes[All ergies Verified] Objective: * Vitals:?Wt: 110 lbs, Ht: 4 f t 11 in, BMI:22.21 Index, BP: 00/00 mm Hg. * Examination: ???General Examination: ?GENERAL APPEARANCE:?pleasant, well nourished, well developed, in no acute distress.?EYES:?sclera non-icteric.?ORAL CAVITY:?mucosa moist.?NECK/THYROID:?no cervical lymphadenopathy, neck supple.?SKIN:?nonjaundiced, no spider angiomata.?HEART:?S1, S2 normal.?LUNGS:?clear to auscultation bilaterally.?ABDOMEN:?normal bowel sounds, no guarding or rigidity, no guarding or rigidity, no masses palpable, soft, nontender, nondistended.?EXTREMITIES:?no edema.?NEUROLOGIC:?alert and oriented.? Assessment: * Assessment: 1.?Encounter for other prepr ocedural examination - Z01.818 (Primary)?2.?History of adenomatous polyp of colon - Z86.010?3.?Encounter for screening for malignant neoplasm of colon - Z12.11? Overall, Radha appears we ll. Given her personal history of tubular adenomas of the colon and her last colonoscopy being back in 2016, I did recommend a followup colonoscopy for further screening purposes. We did review the rationale for that in regard to colon cancer prevention. Full consent is obtained for this, including risks of bleeding and perforation. The procedure will be done with monitored anesthesia care. Radha was comfortable with this plan. Thank you again for allowing me to participate in Radha's care. I shall continue to keep you advised of her progress. Plan: * Treatment: 2.?Encounter for screening for malignant neoplasm of colon?Procedure: COLONOSCOPY (Ordered for 10/08/2024)* with MACsched for 01/27/25 at 10:20 ammiralax * Procedure Codes:?3017F COLOR ECTAL CA SCREEN DOC [id number] Pt scrn tbco and id as [id number] BP SCR NOT PRFRM REC REASON NOS * Preventive Medicine:? ??Urinary Incontinence:?Urinary Incontinence?Assessment:?Absent,?Plan of care documented:?No, reason not specified.? ??Screenings:?Fall Risk Screening?Fall Risk Assessment:?No falls in the past year,?Screening:?No falls in the past year,?Assessment:?Not performed, no reason specified,?Plan of Care:?Not documented, no reason specified.? * Follow Up:?prn * * Sign off status: Completed true * Provider:?Biju Mccormick MD Date:? 024 Generated for Elliott gotti/Martín/Brittny on:?01/22/2025 01:27 PM EST History and Physical Notes * HPI (History of Present Illness) Category Sub-Category Detail Notes Category Not es incontinence I saw Radha in the office today for evaluation of her personal history of tubular adenomas of the colon and need for colorectal cancer screening. I last saw Radha in 2016, at which time she underwent a followup screening colonoscopy with removal of tubular adenomas. She presently feels well. She enjoys a good appetite and denies any significant heartburn or dysphagia. Her bowel movements have been regular and without any signs of bleeding. She denies abdominal pain, jaundice, nor unintentional weight loss. She denies any known family history of colon cancer. Examination Category Sub-Category Detail Notes Category Not es General Examination GENERAL APPEARANCE: pleasant , well [...]
--- OUTSIDE RECORDS SUMMARY | 2025-01-22 13:28 | XMS_ITS ---
Author Organization [facility] Address [address] [place] [phone] Care Team Providers Care Ec Teacher Name Role Phone Bárbara Plummer Primary Care Provider Unavailab Biju Tolliver Unavailable [phone] REASON FOR VISIT please lock 10-08-24 office note Encounters Encounter Location Date Provider Diagnosis [facility] [address] [place] [phone] 10/28/2024 Biju Mccormick Plan Of Treatment Next Appt Details Provider Name:Biju Mccormick , 01/27/2025 10:20:00 AM, [address] [place] [address] , [place], [place], [phone], Progress Notes * RADHA SCHMIDT ADOB: [birth year] (73 yo F)Acc No.[id number]:10/28/2024 Patient:?RADHA SCHMIDT :1950???Age:73 Y???Sex:Female Address:[place] [address] * true * Date:? Generated for Elliott gotti/Martín/eTransmitting on:?01/22/2025 01:27 PM EST
--- OUTSIDE RECORDS SUMMARY | 2025-01-22 13:28 | XMS_ITS | Patient Health Record ---
Author Organization [facility] Address [address] [place] [address] Care Team Providers Care Rescue Instructor Name Role Phone Bárbara Plummer Primary Care Provider UnavailBiju Madsen Unavailable [phone] Allergies Allergen (clinical drug ingredient) Drug/Non Drug Allergy documented on EMR Reaction Allergy Type Onset Date Status Penicillin Unknown Drug Allergy Active Reason For Referral No Information Medications Medication SIG (Take, Route, Fr equency, Duration) Notes Start Date End Date Status Sertraline HCl 100 MG 1 tablet Orally Once a day Active Multi Vitamin/Minerals Orally Active Latanoprost 0.005 % 1 drop into affected eye in the evening Ophthalmic Once a day Active Timolol Maleate 0.5 % Ophthalmic for 80 Active Problems Problem Type SNOMED Code ICD Code Onset Dates Problem Status W/U Status Risk Notes Problem 383382380 Encounter for screening for malignant neoplasm of colon (Z12.11) Active confirmed Problem 702721500 History of adenomatous polyp of colon (Z86.010) Active confirmed Problem Pre-procedure evaluation check (501465330) Encounter for other preprocedural examination (Z01.818) Active confirmed Problem 403703254 Irritable bowel syndrome with diarrhea (K58.0) Active confirmed Problem Screening for malignant neoplasm of rectum (451706488) Encounter for screening for malignant neoplasm of rectum (Z12.12) Active confirmed Vital Signs Blood pressure diastolic 00 mm Hg 10/08/2024 Height 4 ft 11 in in 10/08/2024 Blood pressure systolic 00 mm Hg 10/08/2024 Weight 110 lbs 10/08/2024 BMI 22.21 kg/m2 10/08/2024 Encounters Encounter Location Date Provider Diagnosis [facility] [address] [place] [address] 10/08/2024 Biju Mccormick History of adenomato us polyp of colon Z86.010 ; Encounter for other preprocedural examination Z01.818 and Encounter for screening for malignant neoplasm of colon Z12.11 [facility] [address] [place] [address] 10/28/2024 Biju Mccormick Assessments Encounter Date Diagnosis (ICD Code) Assessment [...] advised of her progress. Plan Of Treatment Pending Test Test Name Order Date CELIAC PANEL #10 12/16/2015 Future Test Test Name Order Date COLONOSCOPY 12/16/2015 COLONOSCOPY 10/08/2024 Next Appt Details Provider Name:Biju Mccormick , 01/27/2025 10:20:00 AM, [address] [place] [address] , [place], [place], [id number], Insurance Providers Payer Name Payer Address Payer Phone Subscriber Number Group Number Insured Name Patient Relationship to Insured Coverage Start Date Coverage End Date [facility] [address] [address] [place] [address] [id number] RADHA SCHMIDT Self - patient is the insured Medical (General) History Medical History History ICD Code Colonoscopy 2003 with small tubular adenomas removed; colonoscopy in 2009 was negative except for diverticulosis and internal hemorrhoids Depression/anxiety Denies NH,DM,CVA,Lung disease,renal dise ase Hyperlipidemia Glaucoma Osteoporosis Colonoscopy 02/2016 with 3 small tubular adenomas removed Surgical History Surgery Date(Month/Year) [place] teeth extraction Cauterization for epistaxis
== END 2025-01-22 13:52 | disposition home or self-care (01) ==
PROVIDERS: PCP Internal Medicine; Visit Provider Physician Assistant
DX: R10.9 Unspecified abdominal pain (principal); R14.0 Abdominal distension (gaseous); R19.7 Diarrhea, unspecified

== ENCOUNTER 2025-01-27 09:18 | Day surgery (SDC) | payer MEDICARE, SELFPAY ==
--- OUTSIDE RECORDS SUMMARY | 2025-01-05 12:42 | XMS_ITS ---
Author Organization [facility] Address [address] [place] [phone] Care Team Providers Care Small Battery Plate Assembler Name Role Phone Bárbara Plummer Primary Care Provider Unavailab Biju Tolliver Unavailable [phone] ALLERGIES Allergen (clinical drug ingredient) Drug/Non Drug Allergy documented on EMR Reaction Allergy Type Onset Date Status Penicillin Unknown Drug Allergy Active REASON FOR VISIT Patient presents today for a COLON SCREENING MEDICATIONS Medication SIG (Take, Route, Fr equency, Duration) Notes Start Date End Date Status Sertraline HCl 100 MG 1 tablet Orally Once a day Active Multi Vitamin/Minerals Orally Active Timolol Maleate 0.5 % Ophthalmic for 80 Active Latanoprost 0.005 % 1 drop into affected eye in the evening Ophthalmic Once a day Active PROBLEMS Problem Type ICD Code Onset Dates Problem Status W/U Status Risk SNOMED Code Notes Problem Encounter for other preprocedural examination (Z01.818) Active confirmed Pre-procedure evaluation check (953225806) VITAL SIGNS BMI 22.21 kg/m2 10/08/2024 Blood pressure systolic 00 mm Hg 10/08/20 24 Blood pressure diastolic 00 mm Hg 024 Height 4 ft 11 in in 10/08/2024 Weight 110 lbs 10/08/2024 Encounters Encounter Location Date Provider Diagnosis [facility] [address] [place] [phone] 10/08/2024 Biju Mccormick History of adenomato us polyp of colon Z86.010 ; Encounter for other preprocedural examination Z01.818 and Encounter for screening for malignant neoplasm of colon Z12.11 ASSESSMENTS Encounter Date Diagnosis Assessment Notes Treatment Notes Treatment Clinical Notes 10/08/2024 History of adenomatous polyp of colon (ICD-10 - Z86.010) 10/08/2024 Encounter for other preprocedural examination (ICD-10 - Z01.818) 10/08/2024 Encounter for screening for malignant neoplasm of colon (ICD-10 - Z12.11) PLAN OF TREATMENT Future Test Test Name Order Date COLONOSCOPY 10/08/2024 Next Appt Details Follow Up: prn, Reason: Provider Name:Biju Larsen Mccormick , 01/27/2025 10:20:00 AM, [address] [place] [address], [phone], Progress Notes * Examination Category Sub-Category Detail Notes General Examination GENERAL APPEARANCE: pleasant , well nourished, well developed, in no acute distress HEAD: EYES: sclera non-icteric EARS: NOSE: THROAT: NECK/THYROID: no cervical lymphade nopathy, neck supple HEART: S1, S2 normal CHEST: LUNGS: clear to auscultatio n bilaterally ABDOMEN: normal bowel sounds, no guarding or rigidity, no guarding or rigidity, no masses palpable, soft, nontender, nondistended NEUROLOGIC: alert and oriented SKIN: nonjaundiced, no spi nelia angiomata EXTREMITIES: no edema PERIPHERAL PULSES: BACK: BREASTS: MUSCULOSKELETAL: MALE GENITOURINARY: LYMPH NODES: RECTAL EXAM: FEMALE GENITOURINARY: ORAL CAVITY: mucosa moist
--- OUTSIDE RECORDS SUMMARY | 2025-01-05 12:42 | XMS_ITS ---
Author Organization [facility] Address [address] [place] [address] Care Team Providers Care Jewelry Enameler Name Role Phone Bárbara Plummer Primary Care Provider Unavailab Biju Tolliver Unavailable [phone] REASON FOR VISIT please lock 10-08-24 office note Encounters Encounter Location Date Provider Diagnosis [facility] [address] [place] [address] 10/28/2024 Biju Mccormick PLAN OF TREATMENT Next Appt Details Provider Name:Biju Mccormick , 01/27/2025 10:20:00 AM, [address] [place] [address] , [place], [place], [phone],
--- OUTSIDE RECORDS SUMMARY | 2025-01-05 12:43 | XMS_ITS | Patient Health Record ---
Author Organization [facility] Address [address] [place] [address] Care Team Providers Care Security Tester Name Role Phone Bárbara Plummer Primary Care Provider UnavailBiju Madsen Unavailable [phone] ALLERGIES Allergen (clinical drug ingredient) Drug/Non Drug Allergy documented on EMR Reaction Allergy Type Onset Date Status Penicillin Unknown Drug Allergy Active REASON FOR REFERRAL No Information MEDICATIONS Medication SIG (Take, Route, Fr equency, Duration) Notes Start Date End Date Status Sertraline HCl 100 MG 1 tablet Orally Once a day Active Multi Vitamin/Minerals Orally Active Latanoprost 0.005 % 1 drop into affected eye in the evening Ophthalmic Once a day Active Timolol Maleate 0.5 % Ophthalmic for 80 Active SOCIAL HISTORY Sex Assigned At : Social History Observation Description Sex Assigned At Unknown PROBLEMS Problem Type ICD Code Onset Dates Problem Status W/U Status Risk SNOMED Code Notes Problem History of adenomatous polyp of colon (Z86.010) Active confirmed 902911555 Problem Encounter for screening for malignant neoplasm of colon (Z12.11) Active confirmed 907058109 Problem Encounter for screening for malignant neoplasm of rectum (Z12.12) Active confirmed Screening fo r malignant neoplasm of rectum (636281161) Problem Irritable bowel syndrome with diarrhea (K58.0) Active confirmed 089220718 Problem Encounter for other preprocedural examination (Z01.818) Active confirmed Pre-procedure evaluation check (615402267) VITAL SIGNS Blood pressure diastolic 00 mm Hg 10/08/2024 Height 4 ft 11 in in 10/08/2024 Blood pressure systolic 00 mm Hg 10/08/2024 Weight 110 lbs 10/08/2024 BMI 22.21 kg/m2 10/08/2024 Encounters Encounter Location Date Provider Diagnosis [facility] [address] [place] [address] 10/08/2024 Biju Mccormick History of adenomato us polyp of colon Z86.010 ; Encounter for other preprocedural examination Z01.818 and Encounter for screening for malignant neoplasm of colon Z12.11 [facility] [address] [place] [address] 10/28/2024 Biju Mccormick ASSESSMENTS Encounter Date Diagnosis Assessment Notes Treatment Notes Treatment Clinical Notes 10/08/2024 History of adenomatous polyp of colon (ICD-10 - Z86.010) 10/08/2024 Encounter for other preprocedural examination (ICD-10 - Z01.818) 10/08/2024 Encounter for screening for malignant neoplasm of colon (ICD-10 - Z12.11) PLAN OF TREATMENT Pending Test Test Name Order Date CELIAC PANEL #10 12/16/2015 Future Test Test Name Order Date COLONOSCOPY 12/16/2015 COLONOSCOPY 10/08/2024 Next Appt Details Provider Name:Biju Mccormick , 01/27/2025 10:20:00 AM, [address] [facility] , [place], [place], [phone], Insurance Providers Payer Name Payer Address Payer Phone Subscriber Number Group Number Insured Name Patient Relationship to Insured Coverage Start Date Coverage End Date [employer] [address] [place] [address] [id number] RADHA SCHMIDT Self - patient is the insured MEDICAL (GENERAL) HISTORY Medical History History ICD Code Colonoscopy 2003 with small tubular adenomas removed; colonoscopy in 2009 was negative except for diverticulosis and internal hemorrhoids Depression/anxiety Denies LA,DM,CVA,Lung disease,renal dise ase Hyperlipidemia Glaucoma Osteoporosis Colonoscopy 02/2016 with 3 small tubular adenomas removed Surgical History Surgery Date(Month/Year) [place] teeth extraction Cauterization for epistaxis
[2025-01-25 13:47] VITALS: BMI 22.2
--- NOTE | 2025-01-26 09:03 | P.CONAN_ITS ---
Documented by User: Nicole Redman NP 01/26/25 09:03 HPI - Anesthesia Eval Consult details Narrative: 74yo F for Colonoscopy PMFSH Active Problems Active Problems: All Active Problems Diarrhea (Acute) Abdominal bloating (Acute) Abdominal pain in female (Acute) Screen for colon cancer (Acute) Hip osteoarthritis (Acute) Memory loss (Acute) Osteoporosis (Acute) Physical exam (Acute) Memory loss (Acute) Osteopenia (Acute) Osteoarthritis of right hip (Acute) Mild cognitive impairment (Acute) Skin lesion (Acute) Pure hypercholesterolemia (Acute) Past Medical History Medical History Memory loss Osteopenia Osteoarthritis of right hip Mild cognitive impairment Skin lesion Pure hypercholesterolemia Family History Family History Father Heart attack Mother Ovarian cancer Maternal Grandmother Breast cancer Surgical History Surgical History Hx of colonoscopy (~2015) History of wisdom tooth extraction History of rectal polypectomy Social History Social History Housing: House Are you a primary respiratory care instructor to a significant other at home: No Do you presently have visiting nurse or other home services: No Alcohol intake: current Alcohol intake frequency: a few times a week Alcohol type: beer Patient Tobacco Use Status: Current everyday Tobacco user Cigarette Packs Per Day: 10 Cigarettes Per Day: 200.0 e-Cigarette/Vaping Use: Never Used Second Hand Smoke Exposure: No Use of substances other than those prescribed or required for medical reasons: Yes Substance Use Frequency: Daily Have you been hit, kicked, punched, or otherwise hurt by someone within the past year? If so, by whom?: No Are you DNR?: No Advance Directives: No Advance Directives Information Provided: Yes Recently lost weight without trying: No Nutrition Risks: No Nutritional Risk : No service: No Current occupational status: retired Cognitive needs: No Hearing needs: No Vision needs: No Meds Allergies Allergy/AdvReac Type Severity Reaction Status Date / Time Penicillins [PENICILLINS] Allergy Intermediate RASH Verified 01/22/25 12:57 penicillin V Allergy Unknown rash Verified 01/22/25 12:57 clams [CLAMS] AdvReac Intermediate NAUSEA Verified 01/22/25 12:57 Home Medications ?Medication ?Instructions ?Recorded ?Confirmed ?Last Taken ?Type latanoprost 0.005 % eye drops 1 drp ophthalmic (eye) BEDTIME 05/16/21 01/25/25 Unknown History timolol maleate 0.5 % eye drops drp ophthalmic (eye) 05/16/21 07/22/24 Unknown History Exam Height,Weight and Vital Signs: Height 4 ft 11 in Weight 49.895 kg Assessment and Plan Assessment Anesthesia Assessment: Chart Reviewed Documented by User: Carrie Solis MD 01/27/25 10:10 PMFSH Active Problems Active Problems: All Active Problems Diarrhea (Acute) Abdominal bloating (Acute) Abdominal pain in female (Acute) Screen for colon cancer (Acute) Hip osteoarthritis (Acute) Memory loss (Acute) Osteoporosis (Acute) Physical exam (Acute) Memory loss (Acute) Osteopenia (Acute) Osteoarthritis of right hip (Acute) Mild cognitive impairment (Acute)- knows why she is here but unclear about some other details. Signs own permits Skin lesion (Acute) Pure hypercholesterolemia (Acute) Smoker- Last cigarette this morning Marijuana- yesterday ETOH abuse- daily alcohol. 2 nips of vodka yesterday Past Medical History Medical History Memory loss Osteopenia Osteoarthritis of right hip Mild cognitive impairment Skin lesion Pure hypercholesterolemia Family History Family History Father Heart attack Mother Ovarian cancer Maternal Grandmother Breast cancer Family history of problems with anesthesia: No Surgical History Surgical History Hx of colonoscopy (~2015) History of wisdom tooth extraction History of rectal polypectomy History of Problems with Anesthesia: Yes (Problem with waking up from dental extractions over 40 years ago) Social History Social History Housing: House Are you a primary respiratory care instructor to a significant other at home: No Do you presently have visiting nurse or other home services: No Alcohol intake: current Alcohol intake frequency: a few times a week Alcohol type: beer Patient Tobacco Use Status: Current everyday Tobacco user Cigarette Packs Per Day: 10 Cigarettes Per Day: 200.0 e-Cigarette/Vaping Use: Never Used Second Hand Smoke Exposure: No Use of substances other than those prescribed or required for medical reasons: Yes Substance Use Frequency: Daily Have you been hit, kicked, punched, or otherwise hurt by someone within the past year? If so, by whom?: No Are you DNR?: No Advance Directives: No Advance Directives Information Provided: Yes Recently lost weight without trying: No Nutrition Risks: No Nutritional Risk : No service: No Current occupational status: retired Cognitive needs: No Hearing needs: No Vision needs: No Meds Allergies Allergy/AdvReac Type Severity Reaction Status Date / Time Penicillins [PENICILLINS] Allergy Intermediate RASH Verified 01/22/25 12:57 penicillin V Allergy Unknown rash Verified 01/22/25 12:57 clams [CLAMS] AdvReac Intermediate NAUSEA Verified 01/22/25 12:57 Home Medications ?Medication ?Instructions ?Recorded ?Confirmed ?Last Taken ?Type latanoprost 0.005 % eye drops 1 drp ophthalmic (eye) BEDTIME 05/16/21 01/25/25 Unknown History timolol maleate 0.5 % eye drops drp ophthalmic (eye) 05/16/21 07/22/24 Unknown History Exam Height,Weight and Vital Signs: Height 4 ft 11 in Weight 49.895 kg Vital Signs Temp Pulse Resp BP Pulse Ox O2 Del Method 01/27/25 09:52 97.4 F 71 18 161/90 H 98 Room Air Airway Mallampati Class: II TM Dist: >3cm Neck ROM: Full Loose/Missing/Broken Teeth: Yes (Missing some teeth in the back. Extracted. Denies broken or loose teeth) Heart: RRR Lungs: CTAB Assessment and Plan Assessment Anesthesia Assessment: Anesthesia Plan Discussed and Chart Reviewed Final Anesthetic Review Family History of Problems with Anesthesia: No History of Problems with Anesthesia: Yes (Problem with waking up from dental extractions over 40 years ago) NPO: Yes ASA Class: III Final Preanesthetic Review: No Changes in Pt Med Stat, Meds/Allgs Chart Reviewed, Consent Obtained/Reviewed and Anes Risks/Benef Reviewed Patient Risk: Intermediate Procedure Risk: Low Assessment/Block/Sedation in SS: Assess/Block/Sedation-SS Anesthetic Plan Anesthetic Plan: TIVA Disposition: Standard PACU
[2025-01-27 09:35] VITALS: BMI 22.8
[2025-01-27 09:52] VITALS: BP 161/90; PULSE 71; RESP 18; TEMP 36.3; O2SAT 98
[2025-01-27] MEDS: Lactated Ringers 1,000 ML 100 ML IVCONT (10:02)
[2025-01-27 11:20] VITALS: BP 140/76; PULSE 69; RESP 16; TEMP 36.6; O2SAT 95
--- NOTE | 2025-01-27 11:25 | PM.OP ---
Brief Operative Note Date of Service: 01/27/25 Pre-op diagnosis: Screening Post-op diagnosis: other (Appendiceal orifice lesion) Procedure: Colonoscopy to the cecum with biopsies Surgeon: Biju Mccormick MD Anesthesia: MAC Was an Commercial Pest Control Technician used for this Procedure?: No Estimated blood loss (mL): 2.0 Pathology: other (A. Appendiceal orifice lesion) Condition: stable Disposition: PACU
[2025-01-27 11:35] VITALS: BP 139/82; PULSE 71; RESP 16; TEMP 36.6; O2SAT 95
--- NOTE | 2025-01-27 12:59 | OP_ITS ---
DATE OF SERVICE: 01/27/2025 SURGEON: Biju Mccormick MD INDICATIONS: The patient presents for evaluation of personal history of tubular adenomas of the colon and colorectal cancer screening. Full consent has been obtained from her for this, including risks of bleeding and perforation. PREOPERATIVE DIAGNOSIS: Colorectal cancer screening. POSTOPERATIVE DIAGNOSIS: Colorectal cancer screening, appendiceal orifice lesion, colon polyp, significant sigmoid diverticulosis, internal hemorrhoids. PROCEDURE PERFORMED: Colonoscopy to the cecum with biopsies. ESTIMATED BLOOD LOSS: COMPLICATIONS: ANESTHESIA: Medications used, monitored anesthesia care and glucagon 1 mg IV x1 dose. ASSISTANTS: SPECIMENS: DESCRIPTION OF PROCEDURE: The patient was placed in the left lateral decubitus position. Rectal exam revealed no abnormalities. The Olympus video pediatric colonoscope was entered into the rectum and advanced to the cecum. Advancement past the sigmoid colon was quite difficult. Getting to the cecum did require abdominal pressure at various times. Once in the cecum, I did identify cecal pouch with a normal-appearing ileocecal valve. The entire cecum was well visualized. In the appendiceal orifice, was what appeared to be a sessile and at least an adenomatous appearing lesion filling the entire orifice. It was somewhat firm. It was not mobile and there was no sign of a stalk. Multiple biopsies were obtained from it. It could not be safely removed endoscopically. The remainder of the cecum appeared normal. There was transillumination of light deep in the right lower quadrant. The scope was then slowly withdrawn assessing all mucosal surfaces carefully. Preparation was excellent. In the proximal ascending colon was a flat, approximately 10 to 12 mm polyp, which I did not biopsy nor remove given what I suspect might be a lesion in the appendiceal orifice that might require surgery. I did not visualize any other polyps, colitis, nor angiodysplasia. Withdrawal through the area of the sigmoid colon was difficult, but with insufflation of air, I did feel I was able to visualize the lumen, and I did not visualize any polyps. There were various areas of scope trauma. Again noted was the significant diverticulosis. In the rectum, scope was retroflexed visualizing internal hemorrhoids, but no other pathology. The rectal mucosa appeared normal. The scope was straightened and withdrawn from the patient. She tolerated the procedure well and was returned to the recovery area in stable condition. IMPRESSION: 1. Suspicious appendiceal orifice lesion, status post biopsy. 2. Ascending colon polyp, not biopsied nor removed. 3. Diverticulosis. 4. Internal hemorrhoids. PLAN: The results of the biopsies will be checked. Depending on those results we would then decide whether or not she will need surgery.. Prior to the procedure she reports that she has had several weeks of intermittent lower abdominal pain, but no associated change in bowel habits, postprandial symptoms, nor fevers. I advised her that I most likely will order an outpatient CT scan. Part of her discomfort could very well be related to the significant diverticular disease with some component of constipation. I do not know if the area in the appendiceal orifice would be causing any symptoms. She was advised not to use any aspirin and NSAIDs for at least 1 week. This has been discussed with her . MD COLEMAN Benites/JOHNNY / [id number] MTDD
== END 2025-01-27 12:03 | disposition home or self-care (01) ==
PROVIDERS: PCP Internal Medicine; Visit Provider Internal Medicine
PROC: 0DJD8ZZ Inspection of Lower Intestinal Tract, Via Natural or Artificial Opening Endoscopic (ICD-10-PCS; CPT 45378; principal; 2025-01-27 10:20)
DX: Z12.11 Encounter for screening for malignant neoplasm of colon (principal); Z86.0101 Personal history of adenomatous and serrated colon polyps; C18.1 Malignant neoplasm of appendix; K63.5 Polyp of colon; K57.30 Diverticulosis of large intestine without perforation or abscess without bleeding; K64.8 Other hemorrhoids; R10.30 Lower abdominal pain, unspecified; F41.8 Other specified anxiety disorders; M81.0 Age-related osteoporosis without current pathological fracture; H40.9 Unspecified glaucoma; Z79.899 Other long term (current) drug therapy; Z88.0 Allergy status to penicillin; F17.210 Nicotine dependence, cigarettes, uncomplicated
CPT/HCPCS: 45380; 88305; 88341; 88342; J1610; J2704

== ENCOUNTER 2025-02-01 12:15 | Outpatient (REF) | payer MEDICARE, SELFPAY ==
[2025-02-01 12:29] LABS: MANUAL DIFF FLAG NO
[2025-02-01 12:37] LABS: Basophils Percent Auto 0.5 % (0-2); Eosinophils Percent Auto 0.5 % (0-4); Hematocrit 42.9 % (37.0-47.0); Hemoglobin 14.9 g/dl (12.0-16.0); Imm Gran Abs Auto 0.04 X10*3/uL (0.00-0.03); Imm Gran Pct Auto 0.5 % (0.0-0.4); Lymphocytes Absolute Auto 1.4 X10*3/uL (1.2-4.9); Lymphocytes Percent Auto 16.3 % (20-40); Mean Corpuscular HGB Conc 34.7 g/dl (31.0-35.0); Mean Corpuscular Hemoglobin 34.6 pg (27.0-33.0); Mean Corpuscular Volume 99.5 fL (80.0-98.0); Mean Platelet Volume 9.9 fL (9.4-12.3); Monocytes Absolute Auto 0.7 X10*3/uL (0.1-1.2); Monocytes Percent Auto 8.5 % (2-11); Neutrophils Absolute Auto 6.4 x10*3/uL (2.0-8.3); Neutrophils Percent Auto 73.7 % (45-73); Platelet Count 242 X10*3/uL (160-400); Red Blood Count 4.31 X10*6/uL (4.20-5.50); White Blood Count 8.7 X10*3/uL (4.8-10.8)
[2025-02-01 12:41] LABS: INTERNATIONAL NORM RATIO 0.8 (0.9-1.1); Prothrombin Time 9.7 SEC (10.9-12.4)
[2025-02-01 14:18] LABS: Alanine Aminotransferase 16 U/L (0-31); Albumin Level 4.5 g/dL (3.5-5.0); Alkaline Phosphatase 74 U/L (39-117); Anion Gap 15 (12-20); Aspartate Amino Transferase 25 U/L (5-31); Bilirubin Direct 0.1 mg/dL (0.0-0.5); Bilirubin Total 0.5 mg/dL (0.0-1.0); Blood Urea Nitrogen 11 mg/dL (9-16); Calcium 9.8 mg/dL (8.4-10.2); Carbon Dioxide 28 mmol/L (22-29); Chloride 103 mmol/L (96-108); Estimated Glomerular Filt Rate > 60; Glucose Random 101 mg/dL (60-115); Potassium 3.9 mmol/L (3.3-5.1); Sodium 142 mmol/L (135-145)
== END 2025-02-01 12:16 | disposition home or self-care (01) ==
LOC: HO.LAB 12:15
PROVIDERS: PCP Internal Medicine; Visit Provider Internal Medicine
DX: K57.90 Diverticulosis of intestine, part unspecified, without perforation or abscess without bleeding (principal); C18.1 Malignant neoplasm of appendix
CPT/HCPCS: 36415; 80048; 82248; 82378; 85025; 85610

== ENCOUNTER 2025-02-04 10:33 | Outpatient (AMB) | payer MEDICARE, SELFPAY ==
--- NOTE | 2025-02-04 10:36 | A.OFFVIS_ITS ---
Vital Signs 02/04/25 10:40 Height 4 ft 11 in Weight 112 lb BMI 22.6 BP 168/86 H Blood Pressure Location Rt brachial Position Sitting Pulse 84 Pulse Source Pulse Oximeter Pulse Oximetry (%) 94 Oxygen Delivery Method Room Air Intake Visit Reasons: Apendix Intake Note: NEW PATIENT for initial assessment - abd pain. Recent colo w/ Dr. Mccormick. CT Abd / Pelvis scheduled. Chief Complaint; Generalized abd pain, B/L, seemingly affecting lower quadrants per pt. Pt also reporting excessive gas/flatulence. No additional concerns at this time. Plate Glass Grinder Required: No Accompanied by: Spouse Allergies Penicillins [PENICILLINS] Allergy (Intermediate, Verified 02/04/25 10:22) RASH penicillin V Allergy (Unknown, Verified 02/04/25 10:22) rash clams [CLAMS] Adverse Reaction (Intermediate, Verified 02/04/25 10:22) NAUSEA HPI Comments Details: Patient presents with a significant other. 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 This was located the orifice of the appendix. Patient has nonspecific GI issues and history of diverticulosis but no other symptoms related to this incidental finding on colonoscopy. She otherwise tolerating a diet. She has regular bowel habits. Not noticed any other change in her stool color caliber or blood in his stool. Patient was no prior surgeries of the abdomen. Chart was reviewed and patient evaluated [facility] Medical History Memory loss Osteopenia Osteoarthritis of right hip Mild cognitive impairment Skin lesion Pure hypercholesterolemia Surgical History Hx of colonoscopy (~2015) History of wisdom tooth extraction History of rectal polypectomy Family History Father Heart attack Mother Ovarian cancer Maternal Grandmother Breast cancer Social History Housing: House Are you a primary assistant child care teacher to a significant other at home: No Do you presently have visiting nurse or other home services: No Alcohol intake: current Alcohol intake frequency: a few times a week Alcohol type: beer Patient Tobacco Use Status: Current everyday Tobacco user Cigarette Packs Per Day: 10 Cigarettes Per Day: 200.0 e-Cigarette/Vaping Use: Never Used Second Hand Smoke Exposure: No service: No Current occupational status: retired Cognitive needs: No Hearing needs: No Vision needs: No Physical Exam Vital Signs: Last Vital Signs Pulse 84 02/04/25 10:40 BP 168/86 H 02/04/25 10:40 Pulse Ox 94 02/04/25 10:40 Oxygen Delivery Method Room Air 02/04/25 10:40 BMI result Body Mass Index 22.6 Const Other: Pleasant female in no acute distress. 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 She will have a full bowel prep day prior along with oral antibiotics day prior. All questions answered. Arrangements were made for this on a day which is convenient for her. 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
[2025-02-04 10:40] VITALS: BP 168/86; PULSE 84; O2SAT 94; BMI 22.6
== END 2025-02-04 11:00 | disposition home or self-care (01) ==
PROVIDERS: PCP Internal Medicine; Referring Provider Internal Medicine; Visit Provider Surgery
DX: C18.1 Malignant neoplasm of appendix (principal)
CPT/HCPCS: 99205

== ENCOUNTER 2025-02-07 11:48 | Inpatient (IN) | payer MEDICARE, SELFPAY ==
--- NOTE | ~2025-02-07 | CT_ITS ---
CLINICAL HISTORY: Diffuse abdominal pain CT abdomen and pelvis with contrast Comparison: None Findings: No consolidation or effusion. Mildly enlarged left adrenal gland which may be secondary to hypertrophy or an adenoma. Unremarkable liver, spleen. Small left kidney cyst. No hydronephrosis. Mildly dilated common bile duct. Borderline dilatation of the common bile duct with possible filling defect at its distal aspect. No calcified gallstones. The gallbladder is only mildly distended. There is fluid distention and dilatation of small bowel which measures up to 4.4 cm in diameter. There is an abrupt transition point within the right hemipelvis at the level of the distal ileum. ???Apple-core??? type appearance at the site of transition, Raising the possibility of an underlying mass ( series 3 images 52-55 ). The colon is nearly completely decompressed. There is colonic diverticulosis without diverticulitis. Severe distention of the stomach with fluid. Mild thickening of the distal esophagus. Small right inguinal hernia containing fat. Poorly distended urinary bladder. Borderline prostate size. Appendix not definitively seen. No secondary findings to suggest appendicitis. The bones are intact. IMPRESSION: 1. High-grade small bowel obstruction at the level of the distal ileum within the right hemipelvis. Associated findings raise the possibility of underlying neoplasm. 2. There is distention of the stomach. Recommend decompression. 3. There is thickening of the visualized esophagus raising the possibility of esophagitis. 4. Mild dilatation of the common bile duct and the pancreatic duct. Possible filling defect within the distal aspect of the common bile duct. Consider further evaluation with MRCP when clinically appropriate. This document has been electronically signed by: Frances Hammond MD on 02/07/2025 14:13:37
--- NOTE | ~2025-02-07 | XR_ITS ---
CLINICAL HISTORY: NG tube position 1 view chest x-ray Comparison: None Findings: Incomplete visualization of the lung apices. No consolidative process. Normal size heart. Multiple chronic rib fractures. No acute fracture. IMPRESSION: The nasogastric tube tip is at the level of the proximal stomach. This document has been electronically signed by: Frances Hammond MD on 02/07/2025 14:44:51
[2025-02-07 11:49] VITALS: BP 154/91; PULSE 89; RESP 18; TEMP 36.4; O2SAT 94; BMI 22.1
--- NOTE | 2025-02-07 11:55 | ED.ABDPAIN ---
HPI - Abdominal Pain General Chief Complaint: Abdominal Pain Stated Complaint: abdominal pain Time Seen by Provider: 02/07/25 12:08 Related Data Home Medications ?Medication ?Instructions ?Recorded ?Confirmed latanoprost 0.005 % eye drops 1 drp ophthalmic (eye) BEDTIME 05/16/21 02/04/25 timolol maleate 0.5 % eye drops drp ophthalmic (eye) 05/16/21 02/04/25 Previous Rx's ?Medication ?Instructions ?Recorded sertraline 100 mg tablet 100 mg PO DAILY #90 tabs 02/10/24 calcium 500 mg (as 1 tab PO BID 90 days #180 tabs 07/05/24 carbonate)-vitamin D3 10 mcg (400 unit) tablet (Oyster Shell Calcium-Vitamin D3) Allergies Allergy/AdvReac Type Severity Reaction Status Date / Time Penicillins [PENICILLINS] Allergy Intermediate RASH Verified 02/07/25 11:53 penicillin V Allergy Unknown rash Verified 02/07/25 11:53 clams [CLAMS] AdvReac Intermediate NAUSEA Verified 02/07/25 11:53 PMFSH Past Medical History Medical History Memory loss Osteopenia Osteoarthritis of right hip Mild cognitive impairment Skin lesion Pure hypercholesterolemia Surgical History Hx of colonoscopy (~2015) History of wisdom tooth extraction History of rectal polypectomy Family History Family History Father Heart attack Mother Ovarian cancer Maternal Grandmother Breast cancer Social History Social History Housing: House Are you a primary veterinarian laboratory animal care to a significant other at home: No Do you presently have visiting nurse or other home services: No Alcohol intake: current Alcohol intake frequency: former alcohol drinker Alcohol type: beer and hard liquor Patient Tobacco Use Status: Current everyday Tobacco user Cigarette Packs Per Day: 10 Cigarettes Per Day: 200.0 Smoked in Last 30 Days: Yes e-Cigarette/Vaping Use: Never Used Second Hand Smoke Exposure: No Use of substances other than those prescribed or required for medical reasons: Yes Substance Use Type: Marijuana Advance Directives: No Advance Directives Information Provided: Yes service: No Current occupational status: retired Cognitive needs: No Hearing needs: No Vision needs: No Physical Exam ED Vital Signs: Vital Signs - 24 hr 02/07/25 11:49 02/07/25 12:12 Temperature 97.5 F 97.5 F Pulse Rate 89 87 Respiratory Rate 18 22 H Blood Pressure 154/91 H 144/97 H Pulse Oximetry 94 92 Oxygen Delivery Method Room Air Room Air BMI result Body Mass Index 22.1 Course Course Course Narrative: This is a Rapid Medical Examination (RME) performed by Gaetano Song PA-C in triage. Full HPI, ROS, assessment and treatment plan per primary provider in the Main ED. Hx: 74 yo female here w/ for eval of severe abdominal pain, intermittent x2-[address] donald and dr. mkai. had colonoscopy w/ cancerous polyp near appendix. waiting for back regarding outpatient imaging/ surgery. has been vomiting for 3 days, unable to tolerate PO. passing BMs. woke up this morning w/ hoarse voice from vomiting. pain currently 1-2/10. PE/vitals: hypertensive. overall well appearing. hoarse voice. Plan: labs, kub, further eval in back Reevaluation(s) Reevaluation #1: This is a duplicate note. see dr. dorado's completed note regarding patient's visit on 02/07/25. Medical Decision Making Lab Data 02/07/25 12:00 02/07/25 12:00 Labs: Lab Results 02/07/25 Range/Units 12:00 WBC 9.8 (4.8-10.8) X10*3/uL RBC 4.51 (4.20-5.50) X10*6/uL Hgb 15.6 (12.0-16.0) g/dl Hct 42.8 (37.0-47.0) % MCV 94.9 (80.0-98.0) fL MCH 34.6 H (27.0-33.0) pg MCHC 36.4 H (31.0-35.0) g/dl RDW 13.1 (11.0-16.0) % Plt Count 247 (160-400) X10*3/uL MPV 10.5 (9.4-12.3) fL Immature Gran % (Auto) 0.1 (0.0-0.4) % Neut % (Auto) 79.8 H (45-73) % Lymph % (Auto) 7.6 L (20-40) % Leon % (Auto) 12.2 H (2-11) % Eos % (Auto) 0.1 (0-4) % Baso % (Auto) 0.2 (0-2) % Lymph # (Auto) 0.8 L (1.2-4.9) X10*3/uL Leon # (Auto) 1.2 (0.1-1.2) X10*3/uL Eos # (Auto) 0.0 (0.0-0.4) X10*3/uL Baso # (Auto) 0.0 (0.0-0.2) X10*3/uL Abs Immat Gran (auto) 0.01 (0.00-0.03) X10*3/uL Absolute Neuts (auto) 7.9 (2.0-8.3) x10*3/uL Absolute Nucleated RBC 0.000 (0.0-0.012) X10*3/uL Nucleated RBC % (auto) 0.0 (0.0-0.2) /100WBC Sodium 134 L (135-145) mmol/L Potassium 3.4 (3.3-5.1) mmol/L Chloride 84 L (96-108) mmol/L Carbon Dioxide 35 H (22-29) mmol/L Anion Gap 18 (12-20) BUN 47 H (9-16) mg/dL Creatinine 0.90 (0.5-1.4) mg/dL Estim Creat Clear Calc 37.4 Estimated GFR > 60 Random Glucose 131 H (60-115) mg/dL Calcium 9.9 (8.4-10.2) mg/dL Magnesium 1.9 (1.6-2.6) mg/dL Total Bilirubin 0.6 (0.0-1.0) mg/dL AST 33 H (5-31) U/L ALT 19 (0-31) U/L Alkaline Phosphatase 78 (39-117) U/L Total Protein 7.2 (6.5-8.0) g/dL Albumin 4.1 (3.5-5.0) g/dL Lipase 30 (8-78) U/L Influenza Type A (PCR) NEGATIVE (Negative) Influenza Type B (PCR) NEGATIVE (Negative) RSV RNA Qual (PCR) NEGATIVE (Negative) SARS-CoV-2 RNA (RT-PCR) NEGATIVE (Negative) Medications Administered Discontinued Medications Generic Name Dose Route Start Last Admin Trade Name Freq PRN Reason Stop Dose Admin Sodium Chloride 1,000 mls @ 999 mls/hr 02/07/25 12:15 02/07/25 12:53 Ns IVCONT 02/07/25 13:15 999 mls/hr .Q1H1M NITISH Administration Iohexol 85 ml 02/07/25 13:04 02/07/25 13:05 Iohexol 350 Mg/Ml 100 Ml Infus..Btl IV 02/07/25 13:05 85 ml ONCE ONE Administration Morphine Sulfate 4 mg 02/07/25 12:15 02/07/25 12:52 Morphine Sulfate 4 Mg/Ml Cartridge IVPUSH 02/07/25 12:16 4 mg ONCE ONE Administration Protocol Ondansetron HCl 4 mg 02/07/25 12:15 02/07/25 12:52 Ondansetron Hcl 4 Mg/2 Ml Vial IVPUSH 02/07/25 12:16 4 mg ONCE ONE Administration Discharge Plan Discharge Prescriptions: No Action sertraline 100 mg tablet 100 mg PO DAILY Qty: 90 8RF calcium carbonate-vitamin D3 [Oyster Shell Calcium-Vit D3] 500 mg-10 mcg (400 unit) tablet 1 tab PO BID 90 Days Qty: 180 1RF latanoprost 0.005 % drops 1 drp ophthalmic (eye) BEDTIME timolol maleate 0.5 % drops ophthalmic (eye) Print Language: Albanian
[2025-02-07 12:12] VITALS: BP 144/97; PULSE 87; RESP 22; TEMP 36.4; O2SAT 92
--- NOTE | 2025-02-07 12:19 | ED_ITS ---
HPI - Abdominal Pain General Chief Complaint: Abdominal Pain Stated Complaint: abdominal pain Time Seen by Provider: 02/07/25 12:08 Source: patient Limitations: no limitations History of Present Illness HPI narrative: This is 74 years old the patient with history of cancer of the appendix presented to the emergency department complaining of abdominal pain if for the last 3 days she has been unable to eat and drink fluids the pain is getting worse. MD elicited complaint: abdominal pain Onset (ago): day(s) (3) Pain Consistency: constant Location: diffuse Severity: moderate Quality: cramping Radiation: RLQ Migration to: no migration Exacerbating factors: nothing Relieving factors: nothing Related Data Home Medications ?Medication ?Instructions ?Recorded ?Confirmed latanoprost 0.005 % eye drops 1 drp ophthalmic (eye) BEDTIME 05/16/21 02/04/25 timolol maleate 0.5 % eye drops drp ophthalmic (eye) 05/16/21 02/04/25 Previous Rx's ?Medication ?Instructions ?Recorded sertraline 100 mg tablet 100 mg PO DAILY #90 tabs 02/10/24 calcium 500 mg (as 1 tab PO BID 90 days #180 tabs 07/05/24 carbonate)-vitamin D3 10 mcg (400 unit) tablet (Oyster Shell Calcium-Vitamin D3) Allergies Allergy/AdvReac Type Severity Reaction Status Date / Time Penicillins [PENICILLINS] Allergy Intermediate RASH Verified 02/07/25 11:53 penicillin V Allergy Unknown rash Verified 02/07/25 11:53 clams [CLAMS] AdvReac Intermediate NAUSEA Verified 02/07/25 11:53 Review of Systems Constitutional: Reports no additional constitutional complaints Cardiovascular: Reports no additional cardiovascular complaints Gastrointestinal: Reports abdominal pain [facility] Past Medical History Attestation statement: The following information was validated with the patient. 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 Marino no surgery done yet Medical History Memory loss Osteopenia Osteoarthritis of right hip Mild cognitive impairment Skin lesion Pure hypercholesterolemia Surgical History Hx of colonoscopy (~2015) History of wisdom tooth extraction History of rectal polypectomy Family History Family History Father Heart attack Mother Ovarian cancer Maternal Grandmother Breast cancer Social History Social History Housing: House Are you a primary care support representative to a significant other at home: No Do you presently have visiting nurse or other home services: No Alcohol intake: current Alcohol intake frequency: former alcohol drinker Alcohol type: beer and hard liquor Patient Tobacco Use Status: Current everyday Tobacco user Cigarette Packs Per Day: 10 Cigarettes Per Day: 200.0 Smoked in Last 30 Days: Yes e-Cigarette/Vaping Use: Never Used Second Hand Smoke Exposure: No Use of substances other than those prescribed or required for medical reasons: Yes Substance Use Type: Marijuana Advance Directives: No Advance Directives Information Provided: Yes service: No Current occupational status: retired Cognitive needs: No Hearing needs: No Vision needs: No Physical Exam ED Vital Signs: Vital Signs - 24 hr 02/07/25 11:49 02/07/25 12:12 Temperature 97.5 F 97.5 F Pulse Rate 89 87 Respiratory Rate 18 22 H Blood Pressure 154/91 H 144/97 H Pulse Oximetry 94 92 Oxygen Delivery Method Room Air Room Air BMI result Body Mass Index 22.1 Mild distress Const General: cooperative Nutritional Appearance: average body habitus Orientation/consciousness: patient oriented x3 HENMT Head: Yes normal to inspection Ears: hearing grossly normal bilaterally General nose exam: Normal external nose present Face and sinus: Yes normal facial exam Mouth: Normal oral and palatal mucosa present Throat: Yes posterior oropharynx normal Neck Neck: Yes normal visual inspection Chest Chest palpation & inspection: normal inspection of the chest Resp Effort & Inspection: normal respiratory effort Cardio Jugular venous distension: no JVD Palpation: normal PMI Rate: regular rate Rhythm: regular rhythm GI Other: Distended abdomen diffuse tenderness Palpation (GI): Tenderness to palpation present (GI) Skin General skin exam: no rashes or lesions noted and elasticity normal Neuro General: patient oriented x3 Procedures Procedure Narrative Procedure Narrative: NG TUBE INSERTION: NG TUBE WAS INSERTED BY ME RT NOSTRIL W/O COMPLICATION Course Reevaluation(s) Reevaluation #1: case d/w Dr Reddy Time: 13:44 Reevaluation #2: NG tube inserted by me Time: 14:02 Medical Decision Making Medical Decision Making MDM Narrative: Patient presented complaining of abdominal pain we will insert IV administer IV fluid analgesia we will do CT Differential Diagnosis Differential Diagnoses: The differential diagnosis associated with the presentation includes Small-bowel obstruction/perforated bowels/diverticulitis Admission/Observation Consideration of admission/observation: Escalation of care including admission/observation considered Consult Healthcare Provider Management of the patient was discussed with: [employer] dr REDDY Lab Data MDM Lab Attestation statement: I reviewed the patient's lab results. 02/07/25 12:00 02/07/25 12:00 Labs: Lab Results 02/07/25 Range/Units 12:00 WBC 9.8 (4.8-10.8) X10*3/uL RBC 4.51 (4.20-5.50) X10*6/uL Hgb 15.6 (12.0-16.0) g/dl Hct 42.8 (37.0-47.0) % MCV 94.9 (80.0-98.0) fL MCH 34.6 H (27.0-33.0) pg MCHC 36.4 H (31.0-35.0) g/dl RDW 13.1 (11.0-16.0) % Plt Count 247 (160-400) X10*3/uL MPV 10.5 (9.4-12.3) fL Immature Gran % (Auto) 0.1 (0.0-0.4) % Neut % (Auto) 79.8 H (45-73) % Lymph % (Auto) 7.6 L (20-40) % King % (Auto) 12.2 H (2-11) % Eos % (Auto) 0.1 (0-4) % Baso % (Auto) 0.2 (0-2) % Lymph # (Auto) 0.8 L (1.2-4.9) X10*3/uL King # (Auto) 1.2 (0.1-1.2) X10*3/uL Eos # (Auto) 0.0 (0.0-0.4) X10*3/uL Baso # (Auto) 0.0 (0.0-0.2) X10*3/uL Abs Immat Gran (auto) 0.01 (0.00-0.03) X10*3/uL Absolute Neuts (auto) 7.9 (2.0-8.3) x10*3/uL Absolute Nucleated RBC 0.000 (0.0-0.012) X10*3/uL Nucleated RBC % (auto) 0.0 (0.0-0.2) /100WBC Sodium 134 L (135-145) mmol/L Potassium 3.4 (3.3-5.1) mmol/L Chloride 84 L (96-108) mmol/L Carbon Dioxide 35 H (22-29) mmol/L Anion Gap 18 (12-20) BUN 47 H (9-16) mg/dL Creatinine 0.90 (0.5-1.4) mg/dL Estim Creat Clear Calc 37.4 Estimated GFR > 60 Random Glucose 131 H (60-115) mg/dL Calcium 9.9 (8.4-10.2) mg/dL Magnesium 1.9 (1.6-2.6) mg/dL Total Bilirubin 0.6 (0.0-1.0) mg/dL AST 33 H (5-31) U/L ALT 19 (0-31) U/L Alkaline Phosphatase 78 (39-117) U/L Total Protein 7.2 (6.5-8.0) g/dL Albumin 4.1 (3.5-5.0) g/dL Lipase 30 (8-78) U/L Influenza Type A (PCR) NEGATIVE (Negative) Influenza Type B (PCR) NEGATIVE (Negative) RSV RNA Qual (PCR) NEGATIVE (Negative) SARS-CoV-2 RNA (RT-PCR) NEGATIVE (Negative) Independent Interpretation I performed an independent interpretation of an: CT Scan Interpretation: I REVIEWED PERSONALLY INTERPRETED THE CT SMALL-BOWEL OBSTRUCTION Radiology Impression Discussion of test interpretation with radiology: I discussed test interpretation with the radiologist and I have reviewed the radiologist's reading. Independent Historian Clinical information obtained from an independent historian. History obtained from or confirmed by: Spouse External Record Review External record reviewed: Office record Prescription Management I considered prescription management with: Pain Medication Social Determinants Patient?s care significantly limited by Social Determinants of Health including: Alcoholism and drug addiction in family Medications Administered Discontinued Medications Generic Name Dose Route Start Last Admin Trade Name Freq PRN Reason Stop Dose Admin Sodium Chloride 1,000 mls @ 999 mls/hr 02/07/25 12:15 02/07/25 13:54 Ns IVCONT 02/07/25 13:15 Infused .Q1H1M NITISH Infusion Iohexol 85 ml 02/07/25 13:04 02/07/25 13:05 Iohexol 350 Mg/Ml 100 Ml Infus..Btl IV 02/07/25 13:05 85 ml ONCE ONE Administration Lidocaine HCl 15 ml 02/07/25 13:41 02/07/25 14:00 Lidocaine Hcl Viscous 2 % 15 Ml Solution MUCOUS MEM 02/07/25 13:42 15 ml ONCE ONE Administration Morphine Sulfate 4 mg 02/07/25 12:15 02/07/25 12:52 Morphine Sulfate 4 Mg/Ml Cartridge IVPUSH 02/07/25 12:16 4 mg ONCE ONE Administration Protocol Ondansetron HCl 4 mg 02/07/25 12:15 02/07/25 12:52 Ondansetron Hcl 4 Mg/2 Ml Vial IVPUSH 02/07/25 12:16 4 mg ONCE ONE Administration Discharge Plan Discharge Clinical Impression: SBO (small bowel obstruction) Patient Disposition: Admitted As Inpatient
[2025-02-07 12:20] LABS: MANUAL DIFF FLAG NO
[2025-02-07 12:21] LABS: Basophils Percent Auto 0.2 % (0-2); Eosinophils Percent Auto 0.1 % (0-4); Hematocrit 42.8 % (37.0-47.0); Hemoglobin 15.6 g/dl (12.0-16.0); Imm Gran Abs Auto 0.01 X10*3/uL (0.00-0.03); Imm Gran Pct Auto 0.1 % (0.0-0.4); Lymphocytes Absolute Auto 0.8 X10*3/uL (1.2-4.9); Lymphocytes Percent Auto 7.6 % (20-40); Mean Corpuscular HGB Conc 36.4 g/dl (31.0-35.0); Mean Corpuscular Hemoglobin 34.6 pg (27.0-33.0); Mean Corpuscular Volume 94.9 fL (80.0-98.0); Mean Platelet Volume 10.5 fL (9.4-12.3); Monocytes Absolute Auto 1.2 X10*3/uL (0.1-1.2); Monocytes Percent Auto 12.2 % (2-11); Neutrophils Absolute Auto 7.9 x10*3/uL (2.0-8.3); Neutrophils Percent Auto 79.8 % (45-73); Platelet Count 247 X10*3/uL (160-400); Red Blood Count 4.51 X10*6/uL (4.20-5.50); Red Cell Distribution Width 13.1 % (11.0-16.0); White Blood Count 9.8 X10*3/uL (4.8-10.8)
[2025-02-07 12:35] LABS: Alanine Aminotransferase 19 U/L (0-31); Albumin Level 4.1 g/dL (3.5-5.0); Alkaline Phosphatase 78 U/L (39-117); Anion Gap 18 (12-20); Aspartate Amino Transferase 33 U/L (5-31); Bilirubin Total 0.6 mg/dL (0.0-1.0); Blood Urea Nitrogen 47 mg/dL (9-16); Calcium 9.9 mg/dL (8.4-10.2); Carbon Dioxide 35 mmol/L (22-29); Chloride 84 mmol/L (96-108); Creatinine Clr Calc Pharmacy 37.4; Estimated Glomerular Filt Rate > 60; Glucose Random 131 mg/dL (60-115); Lipase 30 U/L (8-78); Magnesium 1.9 mg/dL (1.6-2.6); Potassium 3.4 mmol/L (3.3-5.1); Sodium 134 mmol/L (135-145); Total Protein 7.2 g/dL (6.5-8.0)
[2025-02-07] MEDS: Morphine Sulfate 4 MG/ML CARTRIDGE IVPUSH (12:52)
[2025-02-07] MEDS: ondansetron HCL 4 MG/2 ML VIAL IVPUSH (12:52)
[2025-02-07] MEDS: 0.9 % Sodium Chloride 1,000 ML 999 ML IVCONT (12:53)
--- NOTE | 2025-02-07 13:00 | PC.NURSE ---
patient a&ox3, iv inserted, labs previously drawn, bus monitor applied, rr equal/non labored, pt states she has abd pain that increases with vomiting. pt medicated for nausea/pain and went to ct scan, will rehook up ivf upon her return, family at bedside
--- NOTE | 2025-02-07 13:01 | PC.NURSE ---
substances: patients relative states that the patient drinks 1/2 pt vodka per day and 1 qt beer, she also smokes marijuana daily
[2025-02-07] MEDS: iohexoL 350 MG/ML 100 ML INFUS..BTL 85 ML IV (13:05)
--- NOTE | 2025-02-07 13:09 | PC.NURSE ---
patients O2 sat went down to 84% after having morphine, pt placed on 2L nc which brought the O2 sat back to 97%
[2025-02-07 13:18] LABS: Influenza A PCR NEGATIVE (Negative); Influenza B PCR NEGATIVE (Negative); Resp Syncy Virus RNA Qual PCR NEGATIVE (Negative); SARS COV2 PCR INHOUSE NEGATIVE (Negative)
[2025-02-07] MEDS: Lidocaine HCl Viscous 2 % 15 ML SOLUTION MUCOUS MEM (14:00)
[2025-02-07] MEDS: Dextrose 5 % and Lactated Ring 1,000 ML 125 ML IVCONT ×2 (14:47→22:19)
--- NOTE | 2025-02-07 14:55 | PHA.MEDREC ---
Addendum entered by Papo Heller [facility] 02/07/25 15:14: Med rec reviewed Original Note: Pharmacy Consult ? Medication Reconciliation Pharmacy has completed the medication reconciliation. Spoke to pt to confirm meds. Per pt, no longer taking calcium + Vit D supplement.
[2025-02-07 15:10] VITALS: BP 124/80; PULSE 81; RESP 16; TEMP 36.4; O2SAT 93
[2025-02-07 20:01] VITALS: BP 146/88; PULSE 86; RESP 16; TEMP 36.9; O2SAT 92
[2025-02-08] VITALS (12 sets, daily range): BP systolic 104–143; BP diastolic 60–87; PULSE 66–86; RESP 14–20; TEMP 36.1–37.3; O2SAT 91–100; BMI 22.1
[2025-02-08 05:07] LABS: Hematocrit 39.8 % (37.0-47.0); Hemoglobin 13.7 g/dl (12.0-16.0); Mean Corpuscular HGB Conc 34.4 g/dl (31.0-35.0); Mean Corpuscular Hemoglobin 34.2 pg (27.0-33.0); Mean Corpuscular Volume 99.3 fL (80.0-98.0); Mean Platelet Volume 10.7 fL (9.4-12.3); Platelet Count 213 X10*3/uL (160-400); Red Blood Count 4.01 X10*6/uL (4.20-5.50); Red Cell Distribution Width 13.2 % (11.0-16.0); White Blood Count 8.4 X10*3/uL (4.8-10.8)
[2025-02-08 05:30] LABS: Anion Gap 14 (12-20); Blood Urea Nitrogen 34 mg/dL (9-16); Calcium 8.5 mg/dL (8.4-10.2); Carbon Dioxide 32 mmol/L (22-29); Chloride 94 mmol/L (96-108); Creatinine Clr Calc Pharmacy 46.8; Estimated Glomerular Filt Rate > 60; Glucose Random 123 mg/dL (60-115); Potassium 2.9 mmol/L (3.3-5.1); Sodium 137 mmol/L (135-145)
[2025-02-08] MEDS: Acetaminophen 1,000 MG/100 ML PIGGYBACK 400 MG IV (05:54)
[2025-02-08] MEDS: Potassium Chloride/H20 10 MEQ/100 ML PIGGYBACK 100 MEQ IV ×2 (06:19→07:24)
[2025-02-08] MEDS: Dextrose 5 % and Lactated Ring 1,000 ML 125 ML IVCONT ×3 (06:27→23:46)
--- NOTE | 2025-02-08 07:21 | PM.HPGS ---
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 She was seen mid week last week for elective resection. She now presents with a several-day history of nausea, vomiting, abdominal pain and swelling. She is not sure when her last bowel movement was. This is a significant change from her evaluation earlier in the week for what was to have been elective right colectomy. Chart was reviewed and patient evaluated. CT scan demonstrating a significant small-bowel obstruction with a process in the right lower quadrant most probably her neoplasm. [facility] Past Medical History Medical History Memory loss Osteopenia Osteoarthritis of right hip Mild cognitive impairment Skin lesion Pure hypercholesterolemia Family History Family History Father Heart attack Mother Ovarian cancer Maternal Grandmother Breast cancer Surgical History Surgical History Hx of colonoscopy (~2015) History of wisdom tooth extraction History of rectal polypectomy Social History Social History Housing: House Are you a primary director of critical care to a significant other at home: No Do you presently have visiting nurse or other home services: No Alcohol intake: current Alcohol intake frequency: former alcohol drinker Alcohol type: beer and hard liquor Patient Tobacco Use Status: Current everyday Tobacco user Cigarette Packs Per Day: 10 Cigarettes Per Day: 200.0 Smoked in Last 30 Days: Yes e-Cigarette/Vaping Use: Never Used Second Hand Smoke Exposure: No Use of substances other than those prescribed or required for medical reasons: Yes Substance Use Type: Marijuana Advance Directives: No Advance Directives Information Provided: Yes service: No Current occupational status: retired Cognitive needs: No Hearing needs: No Vision needs: No Meds Allergies Allergy/AdvReac Type Severity Reaction Status Date / Time Penicillins [PENICILLINS] Allergy Intermediate RASH Verified 02/07/25 11:53 penicillin V Allergy Unknown rash Verified 02/07/25 11:53 clams [CLAMS] AdvReac Intermediate NAUSEA Verified 02/07/25 11:53 Active Medications: Current Medications Calcium Carbonate (Calcium Carbonate 750 Mg Tab.Chew) 750 mg PO Q4H PRN PRN Reason: Heartburn Hydromorphone HCl (Hydromorphone Hcl 0.5 Mg/0.5 Ml Syringe) 0.5 mg IVPUSH Q3H PRN; Protocol PRN Reason: Pain, Severe (Pain Scale 7-10) Dextrose/Lactated Ringer's (D5lr) 1,000 mls @ 125 mls/hr IVCONT .Q8H [facility] Last Admin: 02/08/25 06:27 Dose: 125 mls/hr Acetaminophen (Ofirmev) 1,000 mg in 100 mls @ 400 mls/hr IV Q6H PRN PRN Reason: Pain, Mild (Pain Scale 1-3) Last Infusion: 02/08/25 06:10 Dose: Infused Potassium Chloride (Potassium Chloride/H20) 10 meq in 100 mls @ 100 mls/hr IV Q1H NITISH Stop: 02/08/25 07:44 Last Admin: 02/08/25 06:19 Dose: 100 mls/hr Clindamycin Phosphate (Cleocin) 900 mg in 50 mls @ 50 mls/hr IV PREOP ONE Stop: 02/08/25 08:19 Latanoprost (Latanoprost 0.005 % Ophth Maddy 2.5 Ml Drops) 1 drop EYE-BOTH BEDTIME [facility] Last Admin: 02/07/25 20:17 Dose: Not Given Magnesium Hydroxide (Milk Of Magnesia 30 Ml Oral.Susp) 30 ml PO DAILY PRN PRN Reason: Constipation Melatonin (Melatonin 3 Mg Tablet) 6 mg PO BEDTIME PRN PRN Reason: Insomnia Ondansetron HCl (Ondansetron Hcl 4 Mg/2 Ml Vial) 4 mg IVPUSH QID PRN PRN Reason: Nausea Oxycodone HCl (Oxycodone Hcl Immed Release 5 Mg Tablet) 5 mg PO Q6H PRN PRN Reason: Pain, Moderate(Pain Scale 4-6) Sodium Chloride (0.9 % Sodium Chloride Flush 3 Ml Syringe) 3 ml IVFLUSH QSHIFT [facility] Last Admin: 02/08/25 00:33 Dose: Not Given Timolol Maleate (Timolol Maleate 0.5 % Oph Maddy 5 Ml Drbtl) 1 drop EYE-BOTH DAILY NITISH Home Medications ?Medication ?Instructions ?Recorded ?Confirmed ?Last Taken ?Type latanoprost 0.005 % eye drops 1 drp ophthalmic (eye) BEDTIME 05/16/21 02/07/25 Unknown History timolol maleate 0.5 % eye drops 1 drp ophthalmic (eye) DAILY 05/16/21 02/07/25 02/07/25 09:00 History multivitamin 1 tab PO DAILY 02/07/25 02/07/25 02/07/25 09:00 History Physical Exam Vital Signs: Vital Signs: Last Vital Signs Temp 98 F 02/08/25 04:00 Pulse 86 02/08/25 04:00 Resp 20 02/08/25 04:00 BP 120/78 02/08/25 04:00 Pulse Ox 96 02/08/25 04:00 O2 Del Method Nasal Cannula 02/08/25 04:00 O2 Flow Rate 2 02/08/25 04:00 BMI result Body Mass Index 22.1 Chest: Other: Chest breath sounds bilaterally, HS 1 in 2 GI: Other: Markedly distended abdomen. Lower abdominal tenderness but no evidence of any guarding, rebound, or rigidity. Results Results Labs: Short CBC 02/07/25 02/08/25 Range/Units 12:00 03:48 WBC 9.8 8.4 (4.8-10.8) X10*3/uL Hgb 15.6 13.7 (12.0-16.0) g/dl Hct 42.8 39.8 (37.0-47.0) % Plt Count 247 213 (160-400) X10*3/uL BMP 02/07/25 02/08/25 12:00 03:48 Sodium 134 L 137 Potassium 3.4 2.9 L* Chloride 84 L 94 L Carbon Dioxide 35 H 32 H BUN 47 H 34 H Creatinine 0.90 0.72 Calcium 9.9 8.5 D Liver Function 02/07/25 Range/Units 12:00 Total Bilirubin 0.6 (0.0-1.0) mg/dL AST 33 H (5-31) U/L ALT 19 (0-31) U/L Alkaline Phosphatase 78 (39-117) U/L Albumin 4.1 (3.5-5.0) g/dL Assessment and Plan (1) Cancer of appendix: Status: Acute (2) SBO (small bowel obstruction): Status: Acute Plan Risks, benefits, alternatives of exploratory laparotomy with possible bowel resection, ostomy, bleeding, infection, recurrence, numbness, pain, scarring were reviewed with the patient and she wishes to proceed. All questions answered. Consent signed. Patient will be made an add on case for today. Hypokalemia being replenished. NG tube in, [place] to be inserted Quality Stroke Does the patient have a stroke diagnosis?: No VTE Prior VTE?: No VTE Risk Level:: Surgical - moderate VTE Device Contraindication: N/A - Device Ordered VTE Drug Contraindication: Treatment Not Indicated Procedures Date of Service Date of Service: 02/08/25
[2025-02-08] MEDS: 0.9 % Sodium Chloride Flush 3 ML SYRINGE IVFLUSH (07:24)
--- NOTE | 2025-02-08 07:52 | PC.NURSE ---
2nd bag of IV potassium now infusing via pump at this time. 250ml of dark brown gastric content noted/documented/emptied from right nare NG tube. 18fr macedo catheter w/ 10ml balloon placed at this time. 1450ml of clear, dark yellow urine noted immediately post output. pt tolerated well. pt urned repositioned to comfort. otherwise vss and up to date. nsr on the rn cardiac rehab. pt remains on 2L via NC - no sob/wob noted at this time. pt pending to go to OR at this time. plan of care ongoing. call drake placed within reach.
[2025-02-08 09:03] LABS: Anion Gap 12 (12-20); Blood Urea Nitrogen 30 mg/dL (9-16); Calcium 8.6 mg/dL (8.4-10.2); Carbon Dioxide 37 mmol/L (22-29); Chloride 92 mmol/L (96-108); Creatinine Clr Calc Pharmacy 43.1; Estimated Glomerular Filt Rate > 60; Glucose Random 134 mg/dL (60-115); Potassium 3.2 mmol/L (3.3-5.1); Sodium 138 mmol/L (135-145)
--- NOTE | 2025-02-08 09:32 | MHC.EDTECH ---
pt was walked to the bathroom and was succesful in passing gas
[2025-02-08] MEDS: timoloL maleate 0.5 % Oph Sol 5 ML DRBTL 1 DROP EYE-BOTH (10:19)
[2025-02-08 10:21] LABS: Appearance Urine Clear; Color Urine Dark Yellow; Glucose Urine UA Negative (Negative); Leukocyte Esterase Urine Negative (Negative); Nitrite Urine Positive (Negative); Specific Gravity - Urine >= 1.030 (1.005-1.025); UMIC TRIGGER UACC YES; Urine Blood Negative (Negative); Urine Ketones Negative (Negative); Urine Protein Trace mg/dL (Neg-Trace)
[2025-02-08 10:26] LABS: Bacteria Urine 4+ (None Seen); Hyaline Casts Urine 0-2 /LPF (0-2); RBC Urine 0-2 /HPF (0-2); Squamous Epithelial Cell Urine 0-2 /HPF (0-2); UACC Culture Trigger YES
--- NOTE | 2025-02-08 10:40 | PC.NURSE ---
delay in eye drop administration d/t not being readily available in pyxis. medication delivered/administered at this time. pt still pending to go to OR at this time. report not given. will update pt on ETA when able.
--- NOTE | 2025-02-08 11:14 | MHC.CM.PN ---
IMM 02/08/25, Pt lives with her , PCP is confirmed: Bárbara Mehta. HCP form to be completed here and added to chart. Pt. does not use any home health services or DME. to transport home at [place]. DCP: home, self care or with VNA. CM to follow for DC needs.
--- NOTE | 2025-02-08 11:47 | PC.NURSE ---
report given to NIXON Penn in the OR at this time.
--- NOTE | 2025-02-08 12:06 | PC.NURSE ---
pt transported to the OR at this time.
[2025-02-08] MEDS: Lactated Ringers 1,000 ML 80 ML IVCONT (12:20)
--- NOTE | 2025-02-08 12:51 | P.CONAN_ITS ---
HPI - Anesthesia Eval Consult details Narrative: APPENDIX CA SBO ---NGT IN [facility] Active Problems Active Problems: All Active Problems SBO (small bowel obstruction) (Acute) Cancer of appendix (Acute) Diarrhea (Acute) Abdominal bloating (Acute) Abdominal pain in female (Acute) Screen for colon cancer (Acute) Hip osteoarthritis (Acute) Memory loss (Acute) Osteoporosis (Acute) Physical exam (Acute) Memory loss (Acute) Osteopenia (Acute) Osteoarthritis of right hip (Acute) Mild cognitive impairment (Acute) Skin lesion (Acute) Pure hypercholesterolemia (Acute) Past Medical History Medical History Memory loss Osteopenia Osteoarthritis of right hip Mild cognitive impairment Skin lesion Pure hypercholesterolemia Family History Family History Father Heart attack Mother Ovarian cancer Maternal Grandmother Breast cancer Family history of problems with anesthesia: No Surgical History Surgical History Hx of colonoscopy (~2015) History of wisdom tooth extraction History of rectal polypectomy History of Problems with Anesthesia: Yes (Problem with waking up from dental extractions over 40 years ago) Social History Social History Housing: House Are you a primary life care planner to a significant other at home: No Do you presently have visiting nurse or other home services: No Alcohol intake: current Alcohol intake frequency: 0-2 drinks per day Alcohol type: beer and hard liquor Patient Tobacco Use Status: Current everyday Tobacco user Tobacco use type: Cigarette Cigarette Packs Per Day: 10 Cigarettes Per Day: 10 Smoked in Last 30 Days: Yes e-Cigarette/Vaping Use: Never Used Second Hand Smoke Exposure: No Use of substances other than those prescribed or required for medical reasons: Yes Substance Use Type: Marijuana Substance Use Frequency: Daily Have you been hit, kicked, punched, or otherwise hurt by someone within the past year? If so, by whom?: No Are you DNR?: No Advance Directives: No Advance Directives Information Provided: Yes Advance Directives on File: No Recently lost weight without trying: No Eating poorly because of decreased appetite: Yes Nutrition Risks: No Nutritional Risk Patient : No : No Poor oral hygiene: No service: No Current occupational status: retired Cognitive needs: No Hearing needs: No Vision needs: No Meds Allergies Allergy/AdvReac Type Severity Reaction Status Date / Time Penicillins [PENICILLINS] Allergy Intermediate RASH Verified 02/07/25 11:53 penicillin V Allergy Unknown rash Verified 02/07/25 11:53 clams [CLAMS] AdvReac Intermediate NAUSEA Verified 02/07/25 11:53 Active Medications: Current Medications Calcium Carbonate (Calcium Carbonate 750 Mg Tab.Chew) 750 mg PO Q4H PRN PRN Reason: Heartburn Hydromorphone HCl (Hydromorphone Hcl 0.5 Mg/0.5 Ml Syringe) 0.5 mg IVPUSH Q3H PRN; Protocol PRN Reason: Pain, Severe (Pain Scale 7-10) Dextrose/Lactated Ringer's (D5lr) 1,000 mls @ 125 mls/hr IVCONT .Q8H [facility] Last Admin: 02/08/25 06:27 Dose: 125 mls/hr Acetaminophen (Ofirmev) 1,000 mg in 100 mls @ 400 mls/hr IV Q6H PRN PRN Reason: Pain, Mild (Pain Scale 1-3) Last Infusion: 02/08/25 06:10 Dose: Infused Lactated Ringer's (Lr) 1,000 mls @ 80 mls/hr IVCONT .[id number] [facility] Last Admin: 02/08/25 12:20 Dose: 80 mls/hr Latanoprost (Latanoprost 0.005 % Ophth Maddy 2.5 Ml Drops) 1 drop EYE-BOTH BEDTIME [facility] Last Admin: 02/07/25 20:17 Dose: Not Given Magnesium Hydroxide (Milk Of Magnesia 30 Ml Oral.Susp) 30 ml PO DAILY PRN PRN Reason: Constipation Melatonin (Melatonin 3 Mg Tablet) 6 mg PO BEDTIME PRN PRN Reason: Insomnia Ondansetron HCl (Ondansetron Hcl 4 Mg/2 Ml Vial) 4 mg IVPUSH QID PRN PRN Reason: Nausea Oxycodone HCl (Oxycodone Hcl Immed Release 5 Mg Tablet) 5 mg PO Q6H PRN PRN Reason: Pain, Moderate(Pain Scale 4-6) Sodium Chloride (0.9 % Sodium Chloride Flush 3 Ml Syringe) 3 ml IVFLUSH QSHIFT [facility] Last Admin: 02/08/25 07:24 Dose: 3 ml Timolol Maleate (Timolol Maleate 0.5 % Oph Maddy 5 Ml Drbtl) 1 drop EYE-BOTH DAILY [facility] Last Admin: 02/08/25 10:19 Dose: 1 drop Home Medications ?Medication ?Instructions ?Recorded ?Confirmed ?Last Taken ?Type latanoprost 0.005 % eye drops 1 drp ophthalmic (eye) BEDTIME 05/16/21 02/07/25 Unknown History timolol maleate 0.5 % eye drops 1 drp ophthalmic (eye) DAILY 05/16/21 02/07/25 02/07/25 09:00 History multivitamin 1 tab PO DAILY 02/07/25 02/07/25 02/07/25 09:00 History Exam Height,Weight and Vital Signs: Height 4 ft 11 in Weight 49.6 kg Last Vital Signs Temp 98.2 F 02/08/25 12:09 Pulse 76 02/08/25 12:09 Resp 16 02/08/25 12:09 BP 111/81 02/08/25 12:09 Pulse Ox 96 02/08/25 12:09 O2 Del Method Nasal Cannula 02/08/25 12:09 O2 Flow Rate 2 02/08/25 12:09 Pertinent Lab Results Pertinent Lab Results: Laboratory Tests 02/07/25 02/08/25 02/08/25 12:00 03:48 08:12 WBC 9.8 8.4 RBC 4.51 4.01 L Hgb 15.6 13.7 Hct 42.8 39.8 MCV 94.9 99.3 H MCH 34.6 H 34.2 H MCHC 36.4 H 34.4 RDW 13.1 13.2 Plt Count 247 213 MPV 10.5 10.7 Immature Gran % (Auto) 0.1 Neut % (Auto) 79.8 H Lymph % (Auto) 7.6 L [place] % (Auto) 12.2 H Eos % (Auto) 0.1 Baso % (Auto) 0.2 Lymph # (Auto) 0.8 L [place] # (Auto) 1.2 Eos # (Auto) 0.0 Baso # (Auto) 0.0 Abs Immat Gran (auto) 0.01 Absolute Neuts (auto) 7.9 Absolute Nucleated RBC 0.000 0.000 Nucleated RBC % (auto) 0.0 0.0 Sodium 134 L 137 138 Potassium 3.4 2.9 L* 3.2 L Chloride 84 L 94 L 92 L Carbon Dioxide 35 H 32 H 37 H Anion Gap 18 14 12 BUN 47 H 34 H 30 H Creatinine 0.90 0.72 0.78 Estim Creat Clear Calc 37.4 46.8 43.1 Estimated GFR > 60 > 60 > 60 Random Glucose 131 H 123 H 134 H Calcium 9.9 8.5 D 8.6 Magnesium 1.9 Total Bilirubin 0.6 AST 33 H ALT 19 Alkaline Phosphatase 78 Total Protein 7.2 Albumin 4.1 Lipase 30 Urine Color Urine Appearance Urine pH Ur Specific [place] Urine Protein Urine Glucose (UA) Urine Ketones Urine Blood Urine Nitrite Ur Leukocyte Esterase Urine RBC Urine WBC Ur Squamous Epith Cells Urine Bacteria Hyaline Casts Influenza Type A (PCR) NEGATIVE Influenza Type B (PCR) NEGATIVE RSV RNA Qual (PCR) NEGATIVE SARS-CoV-2 RNA (RT-PCR) NEGATIVE 02/08/25 10:10 WBC RBC Hgb Hct MCV MCH MCHC RDW Plt Count MPV Immature Gran % (Auto) Neut % (Auto) Lymph % (Auto) [place] % (Auto) Eos % (Auto) Baso % (Auto) Lymph # (Auto) [place] # (Auto) Eos # (Auto) Baso # (Auto) Abs Immat Gran (auto) Absolute Neuts (auto) Absolute Nucleated RBC Nucleated RBC % (auto) Sodium Potassium Chloride Carbon Dioxide Anion Gap BUN Creatinine Estim Creat Clear Calc Estimated GFR Random Glucose Calcium Magnesium Total Bilirubin AST ALT Alkaline Phosphatase Total Protein Albumin Lipase Urine Color Dark Yellow Urine Appearance Clear Urine pH 6.0 Ur Specific [place] >= 1.030 H Urine Protein Trace Urine Glucose (UA) Negative Urine Ketones Negative Urine Blood Negative Urine Nitrite Positive H Ur Leukocyte Esterase Negative Urine RBC 0-2 Urine WBC 6-10 H Ur Squamous Epith Cells 0-2 Urine Bacteria 4+ Hyaline Casts 0-2 Influenza Type A (PCR) Influenza Type B (PCR) RSV RNA Qual (PCR) SARS-CoV-2 RNA (RT-PCR) Airway Mallampati Class: II TM Dist: >3cm Neck ROM: Limited Heart: RRRCTA Assessment and Plan Assessment Anesthesia Assessment: Anesthesia Plan Discussed and Chart Reviewed Final Anesthetic Review Family History of Problems with Anesthesia: No History of Problems with Anesthesia: Yes (Problem with waking up from dental extractions over 40 years ago) NPO: Yes ASA Class: III Final Preanesthetic Review: No Changes in Pt Med Stat, Meds/Allgs Chart Reviewed, Consent Obtained/Reviewed and Anes Risks/Benef Reviewed Patient Risk: Intermediate Procedure Risk: Intermediate Anesthetic Plan Anesthetic Plan: GA, Regional Block and Agree w/ Assess. and Plan Disposition: Standard PACU
--- NOTE | 2025-02-08 13:25 | MHC.CLN ---
NUTRITION PATIENT WITH SBO AND CANCER OF THE APPENDIX. CURRENTLY NPO. WILL COMPLETE NUTRITION ASSESSMENT WHEN ADMITTED TO UNIT.
--- NOTE | 2025-02-08 14:38 | P.OP_ITS ---
Operative Note Operative Note Date of Service: 02/08/25 Narrative: Preoperative diagnosis: [] History of appendiceal carcinoma, complete small bowel obstruction Postop diagnosis: [] Appendiceal carcinoma, carcinomatosis/pseudomyxoma peritonei Procedure [] exploratory laparotomy, ileocolectomy, appendectomy, omental biopsy, aspiration peritoneal fluid for cytology Surgeon: [] Ned Planned Giving Officer: [] Jared Type of Anesthesia: [] General Indication for surgery: [] Patient very recently had a colonoscopy demonstrating from the appendiceal orifice a mass which was positive for adenocarcinoma with mucinous changes. Patient presents with a complete small bowel obstruction. 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 Essentially entire abdominal cavity including visceral and parietal peritoneum were studded with tumor deposits/miliary seeding. Patient had extensive omental caking which was partially encroaching on the distal transverse colon. This was from the colon and omental biopsy was taken from this area. The ileo cecal area was markedly thickened, indurated, adhered to the retroperitoneum and causing obstruction from carcinoma deposits on the distal ileum. To relieve the obstruction, palliative ileo right colectomy/appendectomy was performed with primary anastomosis. Findings: [] Patient brought to the operating room, placed on operative table supine position, and after an adequate level of general anesthesia was induced, patient underwent tap block and then the abdomen was prepped and draped in usual sterile fashion. Using a small infraumbilical midline incision, this carried down through skin, subcutaneous tissue and linea alba. Posterior fascia and peritoneum were opened and extended along the length of the incision. Findings were as noted above. Patient had significant ascites, a sample of which was obtained for cytology. Markedly dilated entire small bowel extending down to the distal ileum/point of obstruction. The ileocecal area of obstruction was mobilized by taking down the lateral peritoneal reflection of the cecum and right colon. Once adequately mobilized, at the desired areas of transection of the mid right colon and a distal ileum proximal to the obstruction site was performed using YASHIRA staplers. Mesentery which had significant tumor deposits and cicatrization was taken down using double firing of ligature device. Specimen sent to pathology. Functional end-to-end anastomosis using YASHIRA 60 and TA 60 was performed without incident. Succus traversed the anastomosis with no leak. Crotch of the anastomosis was buttressed using interrupted 3-0 silk sutures. Mesenteric defect was reapproximated using interrupted 3-0 Vicryl sutures. Partial omentectomy was performed of the distal omentum along of the transverse colon which this was adhered to and partially encasing this portion of the colon, freeing up the distal colon. Specimen was sent to pathology. Abdominal cavity was aspirated of the ascites and abdominal cavity was then irrigated and secured hemostasis. Wound was closed in the following manner; mass closer using 1. Looped PDS suture was used to close peritoneum and fascia. Skin was closed using interrupted inverted dermal 3-0 Vicryl sutures followed by Steri-Strips and sterile dressings. Sponge, needle, and instrument counts reported correct. Patient tolerated the procedure well and emerged from anesthesia stable condition. EBL minimal
[2025-02-08] MEDS: Latanoprost 0.005 % Ophth Sol 2.5 ML DROPS 1 DROP EYE-BOTH (21:32)
[2025-02-09 03:16] VITALS: BP 105/65; PULSE 83; RESP 18; TEMP 37.3; O2SAT 93
[2025-02-09] MEDS: Dextrose 5 % and Lactated Ring 1,000 ML 125 ML IVCONT (06:14)
--- NOTE | 2025-02-09 07:03 | PM.PNGS ---
Subjective Subjective Date of Service: 02/09/25 <Jim Wilton - Last Filed: 02/09/25 08:00> 02/09/25 <Odalys Coleman PA-C - Last Filed: 02/09/25 08:58> 02/09/25 <Jose Marino MD - Last Filed: 02/09/25 10:35> Interval history: No acute events overnight. Pt was awake, laying reclined in bed upon entry. She is alert and reports abdominal pain localizing to her incision. She drank 1-2 cups of water overnight. No emesis. NGT draining appropriately. She has ambulated to the restroom this morning. She has not yet had a bowel movement, though she has passed flatus. She reports not having used incentive spirometry. No shortness of breath, chest pain, palpitations, extremity pain or swelling. <Jim Núñez - Last Filed: 02/09/25 08:00> Physical Exam Vital Signs: Vital Signs: Last Vital Signs Temp 99.2 F 02/09/25 03:16 Pulse 83 02/09/25 03:16 Resp 18 02/09/25 03:16 BP 105/65 02/09/25 03:16 Pulse Ox 93 02/09/25 03:16 O2 Del Method Nasal Cannula 02/09/25 03:16 O2 Flow Rate 2 02/09/25 03:16 BMI result Body Mass Index 22.1 <Jim Núñez - Last Filed: 02/09/25 08:00> Const: General: no acute distress, awake and tired appearing <Jim Núñez - Last Filed: 02/09/25 08:00> Orientation/consciousness: patient oriented x3 <Jim Lat - Last Filed: 02/09/25 08:00> Eyes: Sclerae: sclerae normal <[facility] - Last Filed: 02/09/25 08:00> Resp: Effort & Inspection: able to speak in complete sentences <Jim Lat - Last Filed: 02/09/25 08:00> Auscultation: clear to auscultation bilaterally <Jim Lat - Last Filed: 02/09/25 08:00> GI: Inspection: Yes distended (minimal) <[facility] - Last Filed: 02/09/25 08:00> Inspection: Yes distended <Odalys Coleman PA-C - Last Filed: 02/09/25 08:58> Palpation (GI): Tenderness to palpation present (GI) <Jim Núñez - Last Filed: 02/09/25 08:00> Percussion: Yes tympanic to percussion <Odalys Coleman PA-C - Last Filed: 02/09/25 08:58> Auscultation: Hypoactive bowel sounds present <Jim Núñez - Last Filed: 02/09/25 08:00> Neuro: General: patient oriented x3 <Jim Núñez - Last Filed: 02/09/25 08:00> Extrem: General: Yes no pedal edema <Jim Núñez - Last Filed: 02/09/25 08:00> Objective Data Active Medications Hydromorphone HCl (Hydromorphone Hcl 0.5 Mg/0.5 Ml Syringe) 0.5 mg IVPUSH Q3H PRN; Protocol PRN Reason: Pain, Severe (Pain Scale 7-10) Dextrose/Lactated Ringer's (D5lr) 1,000 mls @ 125 mls/hr IVCONT .Q8H [facility] Last Admin: 02/09/25 06:14 Dose: 125 mls/hr Documented By: ROXIE Acetaminophen (Ofirmev) 1,000 mg in 100 mls @ 400 mls/hr IV Q6H PRN PRN Reason: Pain, Mild (Pain Scale 1-3) Last Infusion: 02/08/25 06:10 Dose: Infused Documented By: LORETTA Latanoprost (Latanoprost 0.005 % Ophth Maddy 2.5 Ml Drops) 1 drop EYE-BOTH BEDTIME [facility] Last Admin: 02/08/25 21:32 Dose: 1 drop Documented By: ROXIE Melatonin (Melatonin 3 Mg Tablet) 6 mg PO BEDTIME PRN PRN Reason: Insomnia Ondansetron HCl (Ondansetron Hcl 4 Mg/2 Ml Vial) 4 mg IVPUSH QID PRN PRN Reason: Nausea Sodium Chloride (0.9 % Sodium Chloride Flush 3 Ml Syringe) 3 ml IVFLUSH QSHIFT [facility] Last Admin: 02/09/25 00:19 Dose: Not Given Documented By: ROXIE Non-Admin Reason: IV Running Timolol Maleate (Timolol Maleate 0.5 % Oph Maddy 5 Ml Drbtl) 1 drop EYE-BOTH DAILY [facility] Last Admin: 02/08/25 10:19 Dose: 1 drop Documented By: ALDO <[facility] - Last Filed: 02/09/25 08:00> Labs CBC & Chem 7: 02/09/25 07:46 02/09/25 07:46 <[facility] - Last Filed: 02/09/25 08:00> Labs: Laboratory Results - last 24 hr 02/08/25 02/08/25 08:12 10:10 Anion Gap 12 Estim Creat Clear Calc 43.1 Estimated GFR > 60 Random Glucose 134 H Calcium 8.6 Urine Color Dark Yellow Urine Appearance Clear Urine pH 6.0 Ur Specific [place] >= 1.030 H Urine Protein Trace Urine Glucose (UA) Negative Urine Ketones Negative Urine Blood Negative Urine Nitrite Positive H Ur Leukocyte Esterase Negative Urine RBC 0-2 Urine WBC 6-10 H Ur Squamous Epith Cells 0-2 Urine Bacteria 4+ Hyaline Casts 0-2 <[facility] - Last Filed: 02/09/25 08:00> Procedures Date of Service Date of Service: 02/09/25 <[facility] - Last Filed: 02/09/25 08:00> 02/09/25 <Odalys Coleman PA-C - Last Filed: 02/09/25 08:58> 02/09/25 <Jose Marino MD - Last Filed: 02/09/25 10:35> Progress Note: A&P Assessment and plan (1) SBO (small bowel obstruction): Status: Acute <[facility] - Last Filed: 02/09/25 08:00> (2) Carcinomatosis: Status: Acute <[facility] - Last Filed: 02/09/25 08:00> (3) S/P colon resection: Status: Acute <[facility] - Last Filed: 02/09/25 08:00> Assessment and Plan: Lucie is POD 1 from exploratory laparotomy, ileocolectomy, appendectomy, omental biopsy, aspiration peritoneal fluid for cytology. S/p ex lap -abdominal incision pain, with clean wound dressings. -NG tube draining appropriately -minimal abdominal distension -cytology pending Pain management -She describes her pain as moderate, requiring tylenol 1000 mg PRN Encouraged incentive spirometry use 10x per hour Plan to remove m[place]o if ambulating well today <Jim Núñez - Last Filed: 02/09/25 08:00> Lucie is POD 1 from exploratory laparotomy, ileocolectomy, appendectomy, omental biopsy, aspiration peritoneal fluid for cytology. S/p ex lap -abdominal incision pain, with clean wound dressings. -NG tube draining appropriately -minimal abdominal distension -cytology pending Pain management -She describes her pain as moderate, requiring tylenol 1000 mg PRN Encouraged incentive spirometry use 10x per hour Plan to remove m[place]o if ambulating well today Agree with above assessment and plan by Arturo Núñez MS-3. Patient is POD #1 s/p exploratory laparotomy, ileocolectomy, appendectomy, omental biopsy, aspiration peritoneal fluid for cytology. NGT without significant drainage, some evidence of GI function but abd is distended this morning. Hemodynamically stable, abd with appropriate post op tenderness. AM labs pending. Dc macedo, cont IVF. Increase activity, incentive spirometer use encouraged. Clamp NGT for 4 hrs, check residual. Will remove if residual <100cc. Unclamp sooner if develops nausea/vomiting, worsening pain. <Odalys Coleman PA-C - Last Filed: 02/09/25 08:58> Lucie is POD 1 from exploratory laparotomy, ileocolectomy, appendectomy, omental biopsy, aspiration peritoneal fluid for cytology. S/p ex lap -abdominal incision pain, with clean wound dressings. -NG tube draining appropriately -minimal abdominal distension -cytology pending Pain management -She describes her pain as moderate, requiring tylenol 1000 mg PRN Encouraged incentive spirometry use 10x per hour Plan to remove m[place]o if ambulating well today Agree with above assessment and plan by Arturo Núñez MS-3. Patient is POD #1 s/p exploratory laparotomy, ileocolectomy, appendectomy, omental biopsy, aspiration peritoneal fluid for cytology. NGT without significant drainage, some evidence of GI function but abd is distended this morning. Hemodynamically stable, abd with appropriate post op tenderness. AM labs pending. Dc m[place], cont IVF. Increase activity, incentive spirometer use encouraged. Clamp NGT for 4 hrs, check residual. Will remove if residual <100cc. Unclamp sooner if develops nausea/vomiting, worsening pain. As noted <Jose aMrino MD - Last Filed: 02/09/25 10:35> Time Spent With Patient Time: Total time managing care of this patient today ____ minutes. <Jim Núñez - Last Filed: 02/09/25 08:00> Quality Stroke Does the patient have a stroke diagnosis?: No <Jim Núñez - Last Filed: 02/09/25 08:00> VTE Prior VTE?: No <Jim Núñez - Last Filed: 02/09/25 08:00> VTE Risk Level:: Surgical - moderate <Jim Núñez - Last Filed: 02/09/25 08:00> VTE Device Contraindication: N/A - Device Ordered <Jim Núñez - Last Filed: 02/09/25 08:00> VTE Drug Contraindication: Treatment Not Indicated <Jim Núñez - Last Filed: 02/09/25 08:00>
--- NOTE | 2025-02-09 07:03 | PM.PNGS ---
Subjective Subjective Date of Service: 02/09/25 <Yanestephanie KwanDanny - Last Filed: 02/09/25 08:02> 02/10/25 <Odalys Coleman PA-C - Last Filed: 02/10/25 08:44> Interval history: No acute event overnight. Patient reports she feels bloated and may have ingested too much water due to misunderstanding how much to drink. <VerafinDanny - Last Filed: 02/09/25 08:02> Physical Exam Vital Signs: Vital Signs: Last Vital Signs Temp 99.2 F 02/09/25 03:16 Pulse 83 02/09/25 03:16 Resp 18 02/09/25 03:16 BP 105/65 02/09/25 03:16 Pulse Ox 93 02/09/25 03:16 O2 Del Method Nasal Cannula 02/09/25 03:16 O2 Flow Rate 2 02/09/25 03:16 BMI result Body Mass Index 22.1 <Yane Danny - Last Filed: 02/09/25 08:02> Const: General: awake <Yane Danny - Last Filed: 02/09/25 08:02> Orientation/consciousness: oriented to person, oriented to place and oriented to time <Yane Danny - Last Filed: 02/09/25 08:02> Resp: Effort & Inspection: able to speak in complete sentences <Yane Danny - Last Filed: 02/09/25 08:02> GI: Other: Tenderness to palpation around the incision site. Minimal distension of the abdomen. Patient has passed flatulence but has not had a bowel movement. <Yane Danny - Last Filed: 02/09/25 08:02> : Other: Catheter was draining clear fluid <Yaen Danny - Last Filed: 02/09/25 08:02> Skin: Other: Bandage intact at the incision site. No bleeding, or leakage. <VerafinDanny - Last Filed: 02/09/25 08:02> Neuro: General: oriented to person, oriented to place and oriented to time <Yane Danny - Last Filed: 02/09/25 08:02> Objective Data Active Medications Hydromorphone HCl (Hydromorphone Hcl 0.5 Mg/0.5 Ml Syringe) 0.5 mg IVPUSH Q3H PRN; Protocol PRN Reason: Pain, Severe (Pain Scale 7-10) Dextrose/Lactated Ringer's (D5lr) 1,000 mls @ 125 mls/hr IVCONT .Q8H [facility] Last Admin: 02/09/25 06:14 Dose: 125 mls/hr Documented By: ROXIE Acetaminophen (Ofirmev) 1,000 mg in 100 mls @ 400 mls/hr IV Q6H PRN PRN Reason: Pain, Mild (Pain Scale 1-3) Last Infusion: 02/08/25 06:10 Dose: Infused Documented By: LORETTA Latanoprost (Latanoprost 0.005 % Ophth Maddy 2.5 Ml Drops) 1 drop EYE-BOTH BEDTIME [facility] Last Admin: 02/08/25 21:32 Dose: 1 drop Documented By: ROXIE Melatonin (Melatonin 3 Mg Tablet) 6 mg PO BEDTIME PRN PRN Reason: Insomnia Ondansetron HCl (Ondansetron Hcl 4 Mg/2 Ml Vial) 4 mg IVPUSH QID PRN PRN Reason: Nausea Sodium Chloride (0.9 % Sodium Chloride Flush 3 Ml Syringe) 3 ml IVFLUSH QSHIFT [facility] Last Admin: 02/09/25 00:19 Dose: Not Given Documented By: ROXIE Non-Admin Reason: IV Running Timolol Maleate (Timolol Maleate 0.5 % Oph Maddy 5 Ml Drbtl) 1 drop EYE-BOTH DAILY [facility] Last Admin: 02/08/25 10:19 Dose: 1 drop Documented By: ALDO <Yane Danny - Last Filed: 02/09/25 08:02> Labs CBC & Chem 7: 02/09/25 07:46 02/10/25 07:08 <Yane Danny - Last Filed: 02/09/25 08:02> Labs: Laboratory Results - last 24 hr 02/08/25 02/08/25 08:12 10:10 Anion Gap 12 Estim Creat Clear Calc 43.1 Estimated GFR > 60 Random Glucose 134 H Calcium 8.6 Urine Color Dark Yellow Urine Appearance Clear Urine pH 6.0 Ur Specific [place] >= 1.030 H Urine Protein Trace Urine Glucose (UA) Negative Urine Ketones Negative Urine Blood Negative Urine Nitrite Positive H Ur Leukocyte Esterase Negative Urine RBC 0-2 Urine WBC 6-10 H Ur Squamous Epith Cells 0-2 Urine Bacteria 4+ Hyaline Casts 0-2 <Yane Danny - Last Filed: 02/09/25 08:02> Procedures Date of Service Date of Service: 02/09/25 <Yane Danny - Last Filed: 02/09/25 08:02> 02/10/25 <Odalys Coleman PA-C - Last Filed: 02/10/25 08:44> Progress Note: A&P Assessment and plan Assessment and Plan: Lucie is post-op day 1 from a small bowel resection, and appendectomy, as well as partial omental removal due to caking. Intake and output will continue to be monitored, as well as the incision site. Catheter could be removed today. Family member will be updated on her status today. <Sherpaacomo - Last Filed: 02/09/25 08:02> Time Spent With Patient Time: Total time managing care of this patient today __10__ minutes. <Yane Danny - Last Filed: 02/09/25 08:02> Quality Stroke Does the patient have a stroke diagnosis?: No <Yane Danny - Last Filed: 02/09/25 08:02> VTE Prior VTE?: No <Yane Danny - Last Filed: 02/09/25 08:02> VTE Risk Level:: Surgical - moderate <Yane Danny - Last Filed: 02/09/25 08:02> VTE Device Contraindication: N/A - Device Ordered <Yane Danny - Last Filed: 02/09/25 08:02> VTE Drug Contraindication: Treatment Not Indicated <Yane Danny - Last Filed: 02/09/25 08:02>
[2025-02-09 08:00] VITALS: BP 104/58; PULSE 85; RESP 18; TEMP 36.7; O2SAT 91
[2025-02-09] MEDS: timoloL maleate 0.5 % Oph Sol 5 ML DRBTL 1 DROP EYE-BOTH (09:13)
[2025-02-09] MEDS: Sertraline HCL 100 MG TABLET PO (09:13)
[2025-02-09 09:14] LABS: Hematocrit 40.2 % (37.0-47.0); Hemoglobin 13.3 g/dl (12.0-16.0); Mean Corpuscular HGB Conc 33.1 g/dl (31.0-35.0); Mean Corpuscular Hemoglobin 33.7 pg (27.0-33.0); Mean Corpuscular Volume 101.8 fL (80.0-98.0); Mean Platelet Volume 11.1 fL (9.4-12.3); Platelet Count 212 X10*3/uL (160-400); Red Blood Count 3.95 X10*6/uL (4.20-5.50); Red Cell Distribution Width 13.3 % (11.0-16.0)
[2025-02-09 09:15] LABS: WBC ABN SCTR FOR CBC 1
[2025-02-09 10:03] LABS: Band Neutrophils Percent 19 % (3-5); Lymphocytes Percent Manual 6 % (20-40); Monocytes Percent Manual 7 % (2-11); Neutrophils Percent Manual 68 % (45-73)
[2025-02-09 10:05] LABS: Anion Gap 12 (12-20); Blood Urea Nitrogen 24 mg/dL (9-16); Carbon Dioxide 33 mmol/L (22-29); Chloride 97 mmol/L (96-108); Creatinine Clr Calc Pharmacy 44.3; Dohle Bodies PRESENT; Estimated Glomerular Filt Rate > 60; Glucose Fasting 137 mg/dL (60-99); Macrocytosis 1+ (5-14) /OIF; Potassium 2.9 mmol/L (3.3-5.1); RBC Morphology NOTED; Sodium 139 mmol/L (135-145)
[2025-02-09 10:06] LABS: Platelet Estimate NORMAL (NORMAL)
[2025-02-09 10:07] LABS: Large Platelet PRESENT; Platelet Morphology Comment NOTED
[2025-02-09 10:09] LABS: Lymphocytes Absolute Manual 0.6 X10*3/uL (1.2-4.9); Monocytes Absolute Manual 0.7 X10*3/uL (0.1-1.2); Neutrophils Absolute Manual 9.1 X10*3/uL (2.0-8.3); White Blood Count 10.5 X10*3/uL (4.8-10.8)
[2025-02-09] MEDS: KCl 20 mEq in 5 % Dex/Lact Rin 20 MEQ/1,000 ML IV.SOLN 100 MEQ IVCONT ×2 (10:20→21:00)
[2025-02-09] MEDS: Potassium Chloride/H20 10 MEQ/100 ML PIGGYBACK 100 MEQ IV ×2 (10:28→11:39)
--- NOTE | 2025-02-09 11:42 | MHC.CLN ---
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
[2025-02-09 11:44] VITALS: BP 122/65; PULSE 87; RESP 12; TEMP 36.6; O2SAT 91
[2025-02-09 12:36] LABS: Albumin Level 2.8 g/dL (3.5-5.0); Magnesium 1.6 mg/dL (1.6-2.6)
--- NOTE | 2025-02-09 14:35 | HO.POSTANES ---
Post Anesthesia Evaluation Post Anesthesia Evaluation Date of Service: 02/09/25 Vital Signs: Vital Signs Temp Pulse Resp BP Pulse Ox O2 Del Method O2 Flow Rate 02/09/25 11:44 97.9 F 87 12 122/65 91 L Nasal Cannula 1 02/09/25 08:00 98.1 F 85 18 104/58 L 91 L Nasal Cannula 1 02/09/25 03:16 99.2 F 83 18 105/65 93 Nasal Cannula 2 Anesthesia: General Endotracheal-GETA Mental Status: Awake Pain Control: Satisfactory Nausea/Vomiting: None Hydration: Adequate Anesthesia-Related Issues: No Anes. Related Issues
[2025-02-09 15:39] VITALS: BP 113/63; PULSE 89; RESP 18; TEMP 36.5; O2SAT 91
[2025-02-09] MEDS: cefTRIAXone sodium 1 GM VIAL IVPUSH (16:17)
[2025-02-09 19:14] VITALS: BP 136/80; PULSE 92; RESP 18; TEMP 36.2; O2SAT 91
[2025-02-09] MEDS: Parenteral Nutrition 1,200 ML 50 ML IV (21:01)
[2025-02-09] MEDS: Latanoprost 0.005 % Ophth Sol 2.5 ML DROPS 1 DROP EYE-BOTH (21:07)
[2025-02-09] MEDS: Melatonin 3 MG TABLET 6 MG PO (21:42)
[2025-02-09 23:17] VITALS: BP 137/65; PULSE 91; RESP 16; TEMP 36.3; O2SAT 93
[2025-02-10 03:29] VITALS: BP 130/94; PULSE 106; RESP 18; TEMP 36.3; O2SAT 96
--- NOTE | 2025-02-10 03:58 | PM.EVENT ---
Event Note Date of Service: 02/10/25 Event Note: As per the nurse, patient wanted to leave and go home. Talked to the patient, patient is oriented and understands the risks of going home. She is anxious and frustrated. Says she doesn?t care if she lives or dies just wants to leave . As per the , patient drinks half a pt of vodka every day and a quart of beer. Patient states her last drink was 10 days ago and has never had alcohol withdrawals in the past. Counseled regarding the importance of staying in the setting of recent exploratory laparotomy, ileocolectomy, appendectomy. Patient is willing to stay for now. Ordered Ativan for anxiety. Patient is adamant that she has never had alcohol withdrawals and that is of no concern now and is not open for treatment. Will monitor CIWA. Time Spent With Patient Time: Total time managing care of this patient today ____ minutes.
[2025-02-10] MEDS: LORazepam 2 MG/ML VIAL 1 MG IVPUSH (04:17)
--- NOTE | 2025-02-10 04:24 | PC.NURSE ---
0300 pt sitting on edge of bed bed alarm going off states she wants to leave.Explained to pt that she can't leave still NPO started TPN last night.States she doesn't care.spoke with that states she drinks1/2 pint of vodka and 1 quart of beer daily. notified that pt wants to leave AMA ordered hospitalist consult. came to see pt.ordered ativan 1mg iv x 1 dose.pt resting in bed at present time.calm and cooperative.
--- NOTE | 2025-02-10 06:36 | P.PNGS_ITS ---
Subjective Subjective Date of Service: 02/10/25 <Jim Wilton - Last Filed: 02/10/25 07:14> 02/10/25 <Odalys Coleman PA-C - Last Filed: 02/10/25 08:49> 02/10/25 <Jose Marino MD - Last Filed: 02/10/25 09:10> Interval history: Pt was agitated and wanted to leave AMA this AM. s/p 1 mg Ativan. Lucie was awake and laying reclined in bed. She reports feeling uncomfortable all over, but does not complain of pain and did not need pain medication overnight. She has not had a bowel movement since surgery, though has passed flatus and is belching. She has not been out of bed since last night, when she ambulated to the restroom to urinate. She feels anxious. She has been coughing, and feels short of breath. No n/v, no chest pain or tightness. She admits poor adherence to incentive spirometry. [place] and NGT removed yesterday. <Jim Núñez - Last Filed: 02/10/25 07:14> Pt was agitated and wanted to leave AMA this AM. s/p 1 mg Ativan. Lucie was awake and laying reclined in bed. She reports feeling uncomfortable all over, but does not complain of pain and did not need pain medication overnight. She has not had a bowel movement since surgery, though has passed flatus and is belching. She has not been out of bed since last night, when she ambulated to the restroom to urinate. She feels anxious. She has been coughing, and feels short of breath. No n/v, no chest pain or tightness. She admits poor adherence to incentive spirometry. < Odalys Coleman PA-C - Last Filed: 02/10/25 08:49> Physical Exam 2 Vital Signs: Vital Signs: Last Vital Signs Temp 97.4 F 02/10/25 03:29 Pulse 106 H 02/10/25 03:29 Resp 18 02/10/25 03:29 BP 130/94 H 02/10/25 03:29 Pulse Ox 96 02/10/25 03:29 O2 Del Method Nasal Cannula 02/10/25 03:29 O2 Flow Rate 2.5 02/10/25 03:29 BMI result Body Mass Index 22.1 <[facility] - Last Filed: 02/10/25 07:14> Const: Other: fatigued <[facility] - Last Filed: 02/10/25 07:14> General: awake, anxious and ill appearing <[facility] - Last Filed: 02/10/25 07:14> General: no acute distress <LITZY Jha - Last Filed: 02/10/25 08:49> Orientation/consciousness: oriented to person, oriented to place and oriented to time <[facility] - Last Filed: 02/10/25 07:14> Eyes: Other: anicteric EOMI <[facility] - Last Filed: 02/10/25 07:14> Resp: Other: Bibasilar crackles with shallow respirations <[facility] - Last Filed: 02/10/25 07:14> Cardio: Other: Tachycardic, normal S1/S2, RRR <[facility] - Last Filed: 02/10/25 07:14> GI: Other: Soft, distended, diffusely tender to palpation Clean surgical incision dressings <[facility] - Last Filed: 02/10/25 07:14> Palpation (GI): Soft to palpation and no guarding <Odalys Coleman PA-C Last Filed: 02/10/25 08:49> Percussion: Yes tympanic to percussion <Odalys Coleman PA-C Last Filed: 02/10/25 08:49> Skin: General skin exam: no rashes or lesions noted <Odalys Coleman PA-C Last Filed: 02/10/25 08:49> Neuro: Other: b/l tremor in feet <[facility] - Last Filed: 02/10/25 07:14> General: oriented to person, oriented to place and oriented to time <[facility] Last Filed: 02/10/25 07:14> Extrem: Other: dorsalis pedis 2+ no pedal edema <[facility] - Last Filed: 02/10/25 07:14> Objective Data Active Medications Ceftriaxone Sodium (Ceftriaxone Sodium 1 Gm Vial) 1 gm IVPUSH Q24H [facility] Last Admin: 02/09/25 16:17 Dose: 1 gm Documented By: MAIKOL Hydromorphone HCl (Hydromorphone Hcl 0.5 Mg/0.5 Ml Syringe) 0.5 mg IVPUSH Q3H PRN; Protocol PRN Reason: Pain, Severe (Pain Scale 7-10) Acetaminophen (Ofirmev) 1,000 mg in 100 mls @ 400 mls/hr IV Q6H PRN PRN Reason: Pain, Mild (Pain Scale 1-3) Last Infusion: 02/08/25 06:10 Dose: Infused Documented By: LORETTA Potassium Cl/Dextrose/Lact Ringer's (Kcl 20 Meq In 5 % Dex/Lact Rin) 20 meq in 1,000 mls @ 100 mls/hr IVCONT .Q10H [facility] Last Admin: 02/09/25 21:00 Dose: 100 mls/hr Documented By: JAMEEL Nutrition (Parenteral) (Parenteral Nutrition) 1,200 mls @ 50 mls/hr IV .Q24H [facility]; Protocol Stop: 02/10/25 20:59 Last Admin: 02/09/25 21:01 Dose: 50 mls/hr Documented By: JAMEEL Latanoprost (Latanoprost 0.005 % Ophth Maddy 2.5 Ml Drops) 1 drop EYE-BOTH BEDTIME [facility] Last Admin: 02/09/25 21:07 Dose: 1 drop Documented By: JAMEEL Melatonin (Melatonin 3 Mg Tablet) 6 mg PO BEDTIME PRN PRN Reason: Insomnia Last Admin: 02/09/25 21:42 Dose: 6 mg Documented By: JAMEEL Multi-Ingred Medicated Throat [place] (Throat [place], Medicated 177 Ml Bottle) 1 spray MUCOUS MEM Q2H PRN PRN Reason: sore throat Ondansetron HCl (Ondansetron Hcl 4 Mg/2 Ml Vial) 4 mg IVPUSH QID PRN PRN Reason: Nausea Pharmacy Consult (Consult Rx Parenteral Nutrition Ordering) 1 each MISCELLANE DAILY PRN PRN Reason: Consult order Sertraline HCl (Sertraline Hcl 100 Mg Tablet) 100 mg PO DAILY [facility] Last Admin: 02/09/25 09:13 Dose: 100 mg Documented By: MAIKOL Sodium Chloride (0.9 % Sodium Chloride Flush 3 Ml Syringe) 3 ml IVFLUSH QSHIFT [facility] Last Admin: 02/09/25 21:33 Dose: Not Given Documented By: JAMEEL Non-Admin Reason: IV Running Timolol Maleate (Timolol Maleate 0.5 % Oph Maddy 5 Ml Drbtl) 1 drop EYE-BOTH DAILY [facility] Last Admin: 02/09/25 09:13 Dose: 1 drop Documented By: MAIKOL <[facility] - Last Filed: 02/10/25 07:14> Labs CBC & Chem 7: 02/09/25 07:46 02/10/25 07:08 <[facility] - Last Filed: 02/10/25 07:14> Labs: Laboratory Results - last 24 hr 02/09/25 07:46 MCV 101.8 H MCH 33.7 H MCHC 33.1 RDW 13.3 Plt Count 212 MPV 11.1 Immature Gran % (Auto) Cancelled Neut % (Auto) Cancelled Lymph % (Auto) Cancelled Robertson % (Auto) Cancelled Eos % (Auto) Cancelled Baso % (Auto) Cancelled Lymph # (Auto) Cancelled Robertson # (Auto) Cancelled Eos # (Auto) Cancelled Baso # (Auto) Cancelled Abs Immat Gran (auto) Cancelled Absolute Neuts (auto) Cancelled Absolute Nucleated RBC 0.000 Nucleated RBC % (auto) 0.0 Neutrophils % (Manual) 68 Band Neutrophils % 19 H Lymphocytes % (Manual) 6 L Monocytes % (Manual) 7 Abs Neuts (Manual) 9.1 H Lymphocytes # (Manual) 0.6 L Monocytes # (Manual) 0.7 Dohle Bodies PRESENT Platelet Estimate NORMAL Large Platelets PRESENT Plt Morphology Comment NOTED RBC Morphology NOTED Macrocytosis 1+ (5-14) Anion Gap 12 Estim Creat Clear Calc 44.3 Estimated GFR > 60 Fasting Glucose 137 H Calcium 8.0 L D Phosphorus 2.0 L Magnesium 1.6 Albumin 2.8 L <[facility] - Last Filed: 02/10/25 07:14> Microbiology Microbiology Results: Microbiology 02/08/25 Unknown Urine Culture - Preliminary Urine Catheterized - [place] Catheter Gram negative arnie <[facility] - Last Filed: 02/10/25 07:14> Procedures Date of Service Date of Service: 02/10/25 <Jim Núñez - Last Filed: 02/10/25 07:14> 02/10/25 <Odalys Coleman PA-C - Last Filed: 02/10/25 08:49> 02/10/25 <Jose Marino MD - Last Filed: 02/10/25 09:10> Progress Note: A&P Assessment and plan (1) S/P colon resection: Status: Acute <Jim Núñez - Last Filed: 02/10/25 07:14> (2) Carcinomatosis: Status: Acute <Jim Núñez - Last Filed: 02/10/25 07:14> (3) SBO (small bowel obstruction): Status: Acute <Jim Núñez - Last Filed: 02/10/25 07:14> Assessment and Plan: Lucie is POD # 2 from exploratory laparotom, ileocolectomy, appendectomy. s/p ex lap incisions healing well. Passing flatus, no bowel movements. Continue bowel rest at this moment. Can place NGT if she does not progress. -NPO -pathology pending UTI No urinary symptoms this morning. Has not urinated since last night. -growing gram neg rods. On Ceftriaxone -m[place]o removed yesterday. Pain management -pain well controlled without analgesics <Jim Núñez - Last Filed: 02/10/25 07:14> Lucie is POD # 2 from exploratory laparotomy, ileocolectomy, appendectomy. s/p ex lap incisions healing well. Passing flatus, no bowel movements. Continue bowel rest at this moment. Can place NGT if she does not progress. -NPO -pathology pending UTI No urinary symptoms this morning. Has not urinated since last night. -growing gram neg rods. On Ceftriaxone -[place] removed yesterday. Pain management -pain well controlled without analgesics Agree with above assessment and plan by Arturo Núñez, MS-3. POD #2 s/p exploratory laparotomy, ileocolectomy, appendectomy, omental biopsy, aspiration peritoneal fluid for cytology. Passing some flatus but nothing significant, no nausea. Hemodynamically stable, abd remains softly distended with appropriate post op tenderness, incisions clean. AM labs reviewed. Will keep on sips/ice chips only for now until more evidence of GI function. Cont PPN until able to advance diet. Increase activity, incentive spirometer use encouraged. Started on rocephin yesterday for UTI. Hospitalists following, started on CIWA this morning. Await pathology. <Odalys Coleman PA-C - Last Filed: 02/10/25 08:49> Lucie is POD # 2 from exploratory laparotomy, ileocolectomy, appendectomy. s/p ex lap incisions healing well. Passing flatus, no bowel movements. Continue bowel rest at this moment. Can place NGT if she does not progress. -NPO -pathology pending UTI No urinary symptoms this morning. Has not urinated since last night. -growing gram neg rods. On Ceftriaxone -[place] removed yesterday. Pain management -pain well controlled without analgesics Agree with above assessment and plan by Arturo Núñez, MS-3. POD #2 s/p exploratory laparotomy, ileocolectomy, appendectomy, omental biopsy, aspiration peritoneal fluid for cytology. Passing some flatus but nothing significant, no nausea. Hemodynamically stable, abd remains softly distended with appropriate post op tenderness, incisions clean. AM labs reviewed. Will keep on sips/ice chips only for now until more evidence of GI function. Cont PPN until able to advance diet. Increase activity, incentive spirometer use encouraged. Started on rocephin yesterday for UTI. Hospitalists following, started on CIWA this morning. Await pathology. As noted above <Jose Marino MD - Last Filed: 02/10/25 09:10> Time Spent With Patient Time: Total time managing care of this patient today ____ minutes. <Jim Núñez - Last Filed: 02/10/25 07:14> Quality Stroke Does the patient have a stroke diagnosis?: No <Jim Núñez - Last Filed: 02/10/25 07:14> VTE Prior VTE?: No <Jim Núñez - Last Filed: 02/10/25 07:14> VTE Risk Level:: Surgical - moderate <Jim Núñez - Last Filed: 02/10/25 07:14> VTE Device Contraindication: N/A - Device Ordered <Jim Núñez - Last Filed: 02/10/25 07:14> VTE Drug Contraindication: Treatment Not Indicated <Jim Núñez - Last Filed: 02/10/25 07:14>
[2025-02-10 07:42] VITALS: BP 165/90; PULSE 94; RESP 20; TEMP 36.8; O2SAT 99
[2025-02-10 08:06] LABS: Albumin Level 2.7 g/dL (3.5-5.0); Anion Gap 10 (12-20); Blood Urea Nitrogen 18 mg/dL (9-16); Calcium 8.4 mg/dL (8.4-10.2); Carbon Dioxide 32 mmol/L (22-29); Chloride 102 mmol/L (96-108); Creatinine Clr Calc Pharmacy 49.5; Estimated Glomerular Filt Rate > 60; Glucose Fasting 115 mg/dL (60-99); Glucose Random 119 mg/dL (60-115); Magnesium 1.7 mg/dL (1.6-2.6); Phosphorus 1.4 mg/dL (2.7-4.5); Potassium 3.3 mmol/L (3.3-5.1); Sodium 141 mmol/L (135-145)
[2025-02-10] MEDS: Sertraline HCL 100 MG TABLET PO (08:20)
[2025-02-10] MEDS: Thiamine HCL 100 MG in 0.9 % Sodium Chloride 100 ML 202 MG IV ×2 (08:20→10:49)
[2025-02-10] MEDS: KCl 20 mEq in 5 % Dex/Lact Rin 20 MEQ/1,000 ML IV.SOLN 100 MEQ IVCONT ×2 (08:23→19:48)
[2025-02-10] MEDS: Folic Acid 1 MG in 0.9 % Sodium Chloride 50 ML 100.4 MG IV (10:17)
[2025-02-10] MEDS: timoloL maleate 0.5 % Oph Sol 5 ML DRBTL 1 DROP EYE-BOTH (10:17)
--- NOTE | 2025-02-10 10:38 | HO.ADDICT_ITS ---
History of Present Illness Date of Service: 02/11/2024 Chief Complaint: Appendiceal ca, SBO Reason for Consult: alcohol use Sources of Information: chart reviewed HPI Narrative: Patient is a 74year old female medically admitted with SBO Most information obtained from chart review as patient was sleepy and declined to meet with this director underwriter sales beyond a few questions. Overnight was attempting leave against medical advice, family member notified and shared with staff that patient normally drinks alcohol at home daily. Per nursing note, she drinks 1/2 pint of vodka and a quart of beer Lorazepam 1mg administered with positive effect as patient remained in the hospital resting quietly. Patient seen in room 354 this morning. Asleep upon arrival, wakes easily to voice. Declining to discuss alcohol use with this director underwriter sales, I drink a few nips a night, that's all . When asked how she was feeling, she replied, fine, I'm tired and closed her eyes. She appears comfortable, no diaphoresis noted. CIWA score was 2 prior to being seen by t/w. HR 94 BP Collateral from Patient has been drinking daily for over 30 years. Amount has decreased over the years, but still drinking daily. Reports she has never been without alcohol daily --Daily drinks at least 4 nips and several beers. Feels she is withdrawing here, states she was confused last night and during the day and feels it was related to alcohol withdrawal Today is the first day he has seen her rest, prior to this he feels she has been diaphoretic, anxious and restless Review of Systems Review of Systems Yes Unobtainable due to mental status Diagnostics Vital Signs (24Hr): Vital Signs - 24 hr 02/09/25 11:44 02/09/25 15:39 02/09/25 19:14 Temperature 97.9 F 97.7 F 97.2 F Pulse Rate 87 89 92 Respiratory Rate 12 18 18 Blood Pressure 122/65 113/63 136/80 Pulse Oximetry 91 L 91 L 91 L Oxygen Delivery Method Nasal Cannula Nasal Cannula Nasal Cannula Oxygen Flow Rate 1 2 2 02/09/25 23:17 02/10/25 03:29 02/10/25 07:42 Temperature 97.3 F 97.4 F 98.3 F Pulse Rate 91 106 H 94 Respiratory Rate 16 18 20 Blood Pressure 137/65 130/94 H 165/90 H Pulse Oximetry 93 96 99 Oxygen Delivery Method Nasal Cannula Nasal Cannula Nasal Cannula Oxygen Flow Rate 2.5 2.5 2 BMI result Body Mass Index 22.1 Labs 02/09/25 07:46 02/10/25 07:08 Labs: Laboratory Results - last 48 hr 02/09/25 02/10/25 07:46 07:08 WBC 10.5 RBC 3.95 L Hgb 13.3 Hct 40.2 MCV 101.8 H MCH 33.7 H MCHC 33.1 RDW 13.3 Plt Count 212 MPV 11.1 Immature Gran % (Auto) Cancelled Neut % (Auto) Cancelled Lymph % (Auto) Cancelled [place] % (Auto) Cancelled Eos % (Auto) Cancelled Baso % (Auto) Cancelled Lymph # (Auto) Cancelled [place] # (Auto) Cancelled Eos # (Auto) Cancelled Baso # (Auto) Cancelled Abs Immat Gran (auto) Cancelled Absolute Neuts (auto) Cancelled Absolute Nucleated RBC 0.000 Nucleated RBC % (auto) 0.0 Neutrophils % (Manual) 68 Band Neutrophils % 19 H Lymphocytes % (Manual) 6 L Monocytes % (Manual) 7 Abs Neuts (Manual) 9.1 H Lymphocytes # (Manual) 0.6 L Monocytes # (Manual) 0.7 Dohle Bodies PRESENT Platelet Estimate NORMAL Large Platelets PRESENT Plt Morphology Comment NOTED RBC Morphology NOTED Macrocytosis 1+ (5-14) Hold Purple Top SEE NOTE Sodium 139 141 Potassium 2.9 L* 3.3 Chloride 97 102 Carbon Dioxide 33 H 32 H Anion Gap 12 10 L BUN 24 H 18 H Creatinine 0.76 0.68 Estim Creat Clear Calc 44.3 49.5 Estimated GFR > 60 > 60 Random Glucose 119 H Fasting Glucose 137 H 115 H Calcium 8.0 L D 8.4 Phosphorus 2.0 L 1.4 L Magnesium 1.6 1.7 Albumin 2.8 L 2.7 L Mental Status Exam Mental Status Exam Level of Consciousness: Drowsy Patient Behavior: Asleep Medications Medications Current Medications Ceftriaxone Sodium (Ceftriaxone Sodium 1 Gm Vial) 1 gm IVPUSH Q24H [facility] Last Admin: 02/09/25 16:17 Dose: 1 gm Hydromorphone HCl (Hydromorphone Hcl 0.5 Mg/0.5 Ml Syringe) 0.5 mg IVPUSH Q3H PRN; Protocol PRN Reason: Pain, Severe (Pain Scale 7-10) Acetaminophen (Ofirmev) 1,000 mg in 100 mls @ 400 mls/hr IV Q6H PRN PRN Reason: Pain, Mild (Pain Scale 1-3) Last Infusion: 02/08/25 06:10 Dose: Infused Potassium Cl/Dextrose/Lact Ringer's (Kcl 20 Meq In 5 % Dex/Lact Rin) 20 meq in 1,000 mls @ 100 mls/hr IVCONT .Q10H [facility] Last Admin: 02/10/25 08:23 Dose: 100 mls/hr Nutrition (Parenteral) (Parenteral Nutrition) 1,200 mls @ 50 mls/hr IV .Q24H [facility]IT[facility]; Protocol Stop: 02/10/25 20:59 Last Admin: 02/09/25 21:01 Dose: 50 mls/hr Thiamine HCl 100 mg/ Sodium (Chloride) 101 mls @ 202 mls/hr IV DAILY [facility] Last Infusion: 02/10/25 08:51 Dose: Infused Folic Acid 1 mg/ Sodium (Chloride) 50.2 mls @ 100.4 mls/hr IV DAILY [facility] Last Admin: 02/10/25 10:17 Dose: 100.4 mls/hr Latanoprost (Latanoprost 0.005 % Ophth Maddy 2.5 Ml Drops) 1 drop EYE-BOTH BEDTIME [facility] Last Admin: 02/09/25 21:07 Dose: 1 drop Melatonin (Melatonin 3 Mg Tablet) 6 mg PO BEDTIME PRN PRN Reason: Insomnia Last Admin: 02/09/25 21:42 Dose: 6 mg Multi-Ingred Medicated Throat [place] (Throat [place], Medicated 177 Ml Bottle) 1 spray MUCOUS MEM Q2H PRN PRN Reason: sore throat Ondansetron HCl (Ondansetron Hcl 4 Mg/2 Ml Vial) 4 mg IVPUSH QID PRN PRN Reason: Nausea Pharmacy Consult (Consult Rx Parenteral Nutrition Ordering) 1 each MISCELLANE DAILY PRN PRN Reason: Consult order Sertraline HCl (Sertraline Hcl 100 Mg Tablet) 100 mg PO DAILY [facility] Last Admin: 02/10/25 08:20 Dose: 100 mg Sodium Chloride (0.9 % Sodium Chloride Flush 3 Ml Syringe) 3 ml IVFLUSH QSHIFT [facility] Last Admin: 02/10/25 08:24 Dose: Not Given Timolol Maleate (Timolol Maleate 0.5 % Oph Maddy 5 Ml Drbtl) 1 drop EYE-BOTH DAILY [facility] Last Admin: 02/10/25 10:17 Dose: 1 drop Allergies Allergies Allergy/AdvReac Type Severity Reaction Status Date / Time Penicillins [PENICILLINS] Allergy Intermediate RASH Verified 02/07/25 11:53 penicillin V Allergy Unknown rash Verified 02/07/25 11:53 clams [CLAMS] AdvReac Intermediate NAUSEA Verified 02/07/25 11:53 Assessment & Plan Assessment & Plan (1) Alcohol use disorder: Status: Acute Code(s): F10.90 - Alcohol use, unspecified, uncomplicated Assessment and Plan: * concern for development of alcohol withdrawal sx, however has not been scoring more than 2 on CIWA. * Has been slightly hypertensive and HR in the 90s. ?unclear if related to discomfort, anxiety. Patient is also medically unwell and sx may bot present as they typically would * low dose PRN lorazepam or diazepam as it is longer acting to address anxiety and or concern withdrawal sx. * OR fixed taper plan * discussed with Dr. Vieira as indicated concerns for withdrawal and management of what he believes to be withdrawal sx * t/w assured that patient is being monitored closely, and this includes monitoring for development of withdrawal sx and treatment as necessary Total time managing care of this patient today _45___ minutes. [facility] Past Medical History Medical History Memory loss Osteopenia Osteoarthritis of right hip Mild cognitive impairment Skin lesion Pure hypercholesterolemia Family History Family History Father Heart attack Mother Ovarian cancer Maternal Grandmother Breast cancer Surgical History Surgical History Hx of colonoscopy (~2015) History of wisdom tooth extraction History of rectal polypectomy Social History Social History Household Members: Spouse Housing: House Are you a primary resident care spec to a significant other at home: No Do you presently have visiting nurse or other home services: No Alcohol intake: current Alcohol intake frequency: 0-2 drinks per day Alcohol type: beer and hard liquor Patient Tobacco Use Status: Current everyday Tobacco user Tobacco use type: Cigarette Cigarette Packs Per Day: 10 Cigarettes Per Day: 10 e-Cigarette/Vaping Use: Never Used Second Hand Smoke Exposure: No Substance Use Type: Marijuana service: No Current occupational status: retired Cognitive needs: No Hearing needs: No Vision needs: No
[2025-02-10 11:19] VITALS: BMI 22.1
--- NOTE | 2025-02-10 11:39 | MHC.CLN ---
F/U PATIENT IS NPO S/P BOWEL SURGERY 02/08. STARTED PPN 02/09. LABS REVIEWED. COMMUNICATED WITH PHARMACY. RECOMMEND ADVANCE PPN TODAY TO PPN AT 70 ML PER HOUR, 71 G PROTEIN, 168 G DEXTROSE, 857 KCALS. REPLETE LYTES NEEDED. CHECK TRIGLYCERIDES. FOLLOW FOR PPN TOLERANCE AND DIET ADVANCEMENT.
[2025-02-10 11:56] VITALS: BP 154/88; PULSE 92; RESP 15; TEMP 36.9; O2SAT 94
[2025-02-10 15:01] VITALS: BP 144/71; PULSE 90; RESP 16; TEMP 36.7; O2SAT 93
[2025-02-10] MEDS: cefTRIAXone sodium 1 GM VIAL IVPUSH (15:11)
--- NOTE | 2025-02-10 15:14 | MHC.CM.PN ---
EMR REVIEWED. PT HAS NOT BEEN MEDICALLY CLEARED FOR DC HOME. PT IS AWAITING BOWEL FUNCTION. STARTED ON ETOH W/D PROTOCOL. CM WILL CONTINUE TO FOLLOW FOR ANY CHANGE TO DC PLAN/NEEDS.
--- NOTE | 2025-02-10 16:55 | P.CONHOSP_ITS ---
History of Present Illness Data of Consult Service Date: 02/10/25 Requesting physician: Jose Marino Primary Care Provider: Bárbara Mehta MD HPI Reason for consult: Hx of EtOH abuse, wants to leave AMA Lucie Dhaliwal this is a very pleasant 74 years old woman with past medical history significant for depression on sertraline was admitted by surgical service after she was found to have SBO. She underwent an exploratory laparotomy for this. She was also found to have a UTI by E coli, pansensitive. She currently denied any abdominal pain, nausea, vomiting or diarrhea. She has been passing flatus but not stools. She admits drinking everyday and it stated that the last time she drank alcohol was 10 days ago. She was not very specific about the quantity of alcohol consumption daily. Per nursing notes the patient drinks half a pt of vodka and a quarter of beer. It seems like last night she was very anxious and wanted to leave AMA. She was given Ativan which helped with her symptoms. She is currently very calm and cooperative. She denied history of hypertension, hyperlipidemia, CHF, kidney disease or CAD. She is a tobacco smoker, smoke 10 cigarettes daily and smoked marijuana in occasions. Review of Systems 2 Review of Systems: All 12 systems were reviewed and normal except as noted in HPI. [facility] Medical History Memory loss Osteopenia Osteoarthritis of right hip Mild cognitive impairment Skin lesion Pure hypercholesterolemia Family History Father Heart attack Mother Ovarian cancer Maternal Grandmother Breast cancer Surgical History Hx of colonoscopy (~2016) History of wisdom tooth extraction History of rectal polypectomy Social History Household Members: Spouse Housing: House Are you a primary intensive care medicine specialist to a significant other at home: No Do you presently have visiting nurse or other home services: No Alcohol intake: current Alcohol intake frequency: 0-2 drinks per day Alcohol type: beer and hard liquor Patient Tobacco Use Status: Current everyday Tobacco user Tobacco use type: Cigarette Cigarette Packs Per Day: 10 Cigarettes Per Day: 10 e-Cigarette/Vaping Use: Never Used Second Hand Smoke Exposure: No Substance Use Type: Marijuana service: No Current occupational status: retired Cognitive needs: No Hearing needs: No Vision needs: No Meds Allergies Allergy/AdvReac Type Severity Reaction Status Date / Time Penicillins [PENICILLINS] Allergy Intermediate RASH Verified 02/07/25 11:53 penicillin V Allergy Unknown rash Verified 02/07/25 11:53 clams [CLAMS] AdvReac Intermediate NAUSEA Verified 02/07/25 11:53 Active Medications: Current Medications Ceftriaxone Sodium (Ceftriaxone Sodium 1 Gm Vial) 1 gm IVPUSH Q24H [facility] Last Admin: 02/10/25 15:11 Dose: 1 gm Hydromorphone HCl (Hydromorphone Hcl 0.5 Mg/0.5 Ml Syringe) 0.5 mg IVPUSH Q3H PRN; Protocol PRN Reason: Pain, Severe (Pain Scale 7-10) Potassium Cl/Dextrose/Lact Ringer's (Kcl 20 Meq In 5 % Dex/Lact Rin) 20 meq in 1,000 mls @ 100 mls/hr IVCONT .Q10H [facility] Last Admin: 02/10/25 08:23 Dose: 100 mls/hr Nutrition (Parenteral) (Parenteral Nutrition) 1,200 mls @ 50 mls/hr IV .Q24H [facility]; Protocol Stop: 02/10/25 20:59 Last Admin: 02/09/25 21:01 Dose: 50 mls/hr Thiamine HCl 100 mg/ Sodium (Chloride) 101 mls @ 202 mls/hr IV DAILY [facility] Last Infusion: 02/10/25 11:24 Dose: Infused Folic Acid 1 mg/ Sodium (Chloride) 50.2 mls @ 100.4 mls/hr IV DAILY [facility] Last Infusion: 02/10/25 10:49 Dose: Infused Nutrition (Parenteral) (Parenteral Nutrition) 1,680 mls @ 70 mls/hr IV .Q24H [facility]; Protocol Stop: 02/11/25 20:59 Latanoprost (Latanoprost 0.005 % Ophth Maddy 2.5 Ml Drops) 1 drop EYE-BOTH BEDTIME [facility] Last Admin: 02/09/25 21:07 Dose: 1 drop Melatonin (Melatonin 3 Mg Tablet) 6 mg PO BEDTIME PRN PRN Reason: Insomnia Last Admin: 02/09/25 21:42 Dose: 6 mg Multi-Ingred Medicated Throat [place] (Throat [place], Medicated 177 Ml Bottle) 1 spray MUCOUS MEM Q2H PRN PRN Reason: sore throat Ondansetron HCl (Ondansetron Hcl 4 Mg/2 Ml Vial) 4 mg IVPUSH QID PRN PRN Reason: Nausea Pharmacy Consult (Consult Rx Parenteral Nutrition Ordering) 1 each MISCELLANE DAILY PRN PRN Reason: Consult order Sertraline HCl (Sertraline Hcl 100 Mg Tablet) 100 mg PO DAILY [facility] Last Admin: 02/10/25 08:20 Dose: 100 mg Sodium Chloride (0.9 % Sodium Chloride Flush 3 Ml Syringe) 3 ml IVFLUSH QSHIFT [facility] Last Admin: 02/10/25 15:01 Dose: Not Given Timolol Maleate (Timolol Maleate 0.5 % Oph Maddy 5 Ml Drbtl) 1 drop EYE-BOTH DAILY [facility] Last Admin: 02/10/25 10:17 Dose: 1 drop Home Medications ?Medication ?Instructions ?Recorded ?Confirmed ?Last Taken ?Type latanoprost 0.005 % eye drops 1 drp ophthalmic (eye) BEDTIME 05/16/21 02/07/25 Unknown History timolol maleate 0.5 % eye drops 1 drp ophthalmic (eye) DAILY 05/16/21 02/07/25 02/07/25 09:00 History multivitamin 1 tab PO DAILY 02/07/25 02/07/25 02/07/25 09:00 History Physical Exam 2 Vital Signs and Narrative: Vital Signs: Last Vital Signs Temp 98.1 F 02/10/25 15:01 Pulse 90 02/10/25 15:01 Resp 16 02/10/25 15:01 BP 144/71 H 02/10/25 15:01 Pulse Ox 93 02/10/25 15:01 O2 Del Method Room Air 02/10/25 15:01 O2 Flow Rate 2 02/10/25 07:42 BMI result Body Mass Index 22.1 Constitutional - Awake and Alert, No apparent distress. Pleasant. Cooperative. HEENT - PERRL, EOMI. Normal sclerae. Heart - S1S2, RRR, No murmurs Lungs - Normal lung expansion, Normal respiratory effort, No respiratory distress, CTA bilaterally Abdomen - Mildly distended. Bowel sounds decreased. Non tenderness. Extremities - no calf tenderness bilaterally, no swelling Musculoskeletal - Normal inspection, normal ROM Skin - Warm/Dry. No jaundice. Neurological - Alert & oriented x3, CN III-XII intact, 5/5 strength BUE and BLE Psychological - Appropriate affect Results Labs 02/09/25 07:46 02/10/25 07:08 Labs: Laboratory Results - last 24 hr 02/10/25 07:08 Hold Purple Top SEE NOTE Anion Gap 10 L Estim Creat Clear Calc 49.5 Estimated GFR > 60 Random Glucose 119 H Fasting Glucose 115 H Calcium 8.4 Phosphorus 1.4 L Magnesium 1.7 Albumin 2.7 L Assessment and Plan (1) Alcohol use disorder: Status: Acute (2) SBO (small bowel obstruction): Status: Acute Plan Recommendations/plan: Lucie Dhaliwal this is a very pleasant 74 years old woman admitted with: * SBO s/p exploratory laparotomy. Treatment per surgery. I encouraged patient to ambulate and use her IS (she was using it during my evaluation). She understands that she has to defecate and tolerate diet before going home. * Alcohol abuse. Patient evaluated by addiction medicine service. Low CIWA score so far. Continue thiamine and folic acid IV. To consider phenobarbital protocol if patient develops serious withdrawal symptoms. * UTI by E coli. Agree with ceftriaxone IV. * Anxiety. Ativan IV as needed. * History of depression. Continue sertraline when able. * Tobacco dependence. Tobacco cessation education. Nicotine patches be offered in case she need them.
[2025-02-10 19:17] VITALS: BP 160/88; PULSE 87; RESP 16; TEMP 37; O2SAT 94
[2025-02-10] MEDS: Parenteral Nutrition 1,680 ML 70 ML IV (19:48)
[2025-02-10] MEDS: Latanoprost 0.005 % Ophth Sol 2.5 ML DROPS 1 DROP EYE-BOTH (19:48)
[2025-02-10 23:22] VITALS: BP 162/74; PULSE 85; RESP 18; TEMP 36.8; O2SAT 94
[2025-02-11] VITALS (9 sets, daily range): BP systolic 141–176; BP diastolic 72–96; PULSE 74–97; RESP 16–20; TEMP 36.4–37.2; O2SAT 94–96
[2025-02-11] MEDS: KCl 20 mEq in 5 % Dex/Lact Rin 20 MEQ/1,000 ML IV.SOLN 100 MEQ IVCONT (05:41)
[2025-02-11 06:46] LABS: Albumin Level 2.6 g/dL (3.5-5.0); Anion Gap 12 (12-20); Blood Urea Nitrogen 10 mg/dL (9-16); Calcium 8.2 mg/dL (8.4-10.2); Carbon Dioxide 25 mmol/L (22-29); Chloride 103 mmol/L (96-108); Creatinine Clr Calc Pharmacy 54.2; Estimated Glomerular Filt Rate > 60; Glucose Random 146 mg/dL (60-115); Magnesium 1.5 mg/dL (1.6-2.6); Phosphorus 1.6 mg/dL (2.7-4.5); Sodium 136 mmol/L (135-145); Triglycerides 82 mg/dL (<150)
--- NOTE | 2025-02-11 07:06 | PM.PNGS ---
Subjective Subjective Date of Service: 02/11/25 <Jim Núñez - Last Filed: 02/11/25 07:20> 02/11/25 <Odalys Coleman PA-C - Last Filed: 02/11/25 13:18> 02/11/25 <Jose Marino MD - Last Filed: 02/11/25 13:31> Interval history: No overnight events Lucie feels poor today, though improved from yesterday. She still feels uncomfortable, though no acute pain. She endorses passing flatus, but no bowel movements. No urinary symptoms. Purewick draining clear urine. Denies n/v, chest pain, shortness of breath. <Jim Núñez - Last Filed: 02/11/25 07:20> Physical Exam Vital Signs: Vital Signs: Last Vital Signs Temp 98 F 02/11/25 03:16 Pulse 74 02/11/25 03:16 Resp 18 02/11/25 03:16 BP 166/88 H 02/11/25 03:16 Pulse Ox 95 02/11/25 03:16 O2 Del Method Room Air 02/11/25 03:16 O2 Flow Rate 2 02/10/25 07:42 BMI result Body Mass Index 22.1 <Jim Wilton - Last Filed: 02/11/25 07:20> Const: Other: thin appearing dry mucuous membranes <Jim Wilton - Last Filed: 02/11/25 07:20> General: lethargic <Jim Wilton - Last Filed: 02/11/25 07:20> Orientation/consciousness: lethargic <Jim Lat - Last Filed: 02/11/25 07:20> Eyes: Other: EOMI anicteric sclera <Jim Lat - Last Filed: 02/11/25 07:20> Resp: Other: CTAB speaking in full sentences <Jim Núñez - Last Filed: 02/11/25 07:20> Effort & Inspection: normal respiratory effort and able to speak in complete sentences <Odalys Coleman PA-C - Last Filed: 02/11/25 13:18> Cardio: Other: RRR normal S1/S2 <Jim Núñez - Last Filed: 02/11/25 07:20> GI: Other: well healing incisions with no erythema or induration diffusely TTP hypoactive bowel sounds <Jim Lat - Last Filed: 02/11/25 07:20> Palpation (GI): Soft to palpation <Odalys Coleman PA-C - Last Filed: 02/11/25 13:18> Percussion: Yes tympanic to percussion (improved) <Odalys Coleman PA-C - Last Filed: 02/11/25 13:18> Skin: General skin exam: no rashes or lesions noted <Odalys Coleman PA-C - Last Filed: 02/11/25 13:18> Neuro: Other: moving all extremities spontaneously no gross deficits <Jim Wilton - Last Filed: 02/11/25 07:20> Extrem: Other: peripheral pulses 2+ b/l no pedal edema <Jim Wilton - Last Filed: 02/11/25 07:20> Objective Data Active Medications Ceftriaxone Sodium (Ceftriaxone Sodium 1 Gm Vial) 1 gm IVPUSH Q24H [facility] Last Admin: 02/10/25 15:11 Dose: 1 gm Documented By: BRENDA Hydromorphone HCl (Hydromorphone Hcl 0.5 Mg/0.5 Ml Syringe) 0.5 mg IVPUSH Q3H PRN; Protocol PRN Reason: Pain, Severe (Pain Scale 7-10) Potassium Cl/Dextrose/Lact Ringer's (Kcl 20 Meq In 5 % Dex/Lact Rin) 20 meq in 1,000 mls @ 100 mls/hr IVCONT .Q10H [facility] Last Admin: 02/11/25 05:41 Dose: 100 mls/hr Documented By: ALEKSANDRA Thiamine HCl 100 mg/ Sodium (Chloride) 101 mls @ 202 mls/hr IV DAILY [facility] Last Infusion: 02/10/25 11:24 Dose: Infused Documented By: BRENDA Folic Acid 1 mg/ Sodium (Chloride) 50.2 mls @ 100.4 mls/hr IV DAILY [facility] Last Infusion: 02/10/25 10:49 Dose: Infused Documented By: BRENDA Nutrition (Parenteral) (Parenteral Nutrition) 1,680 mls @ 70 mls/hr IV .Q24H [facility]; Protocol Stop: 02/11/25 20:59 Last Admin: 02/10/25 19:48 Dose: 70 mls/hr Documented By: ALEKSANDRA Latanoprost (Latanoprost 0.005 % Ophth Maddy 2.5 Ml Drops) 1 drop EYE-BOTH BEDTIME [facility] Last Admin: 02/10/25 19:48 Dose: 1 drop Documented By: ALEKSANDRA Lorazepam (Lorazepam 2 Mg/Ml Vial) 0.5 mg IVPUSH Q4H PRN PRN Reason: Anxiety Melatonin (Melatonin 3 Mg Tablet) 6 mg PO BEDTIME PRN PRN Reason: Insomnia Last Admin: 02/09/25 21:42 Dose: 6 mg Documented By: JAMEEL Multi-Ingred Medicated Throat [place] (Throat [place], Medicated 177 Ml Bottle) 1 spray MUCOUS MEM Q2H PRN PRN Reason: sore throat Ondansetron HCl (Ondansetron Hcl 4 Mg/2 Ml Vial) 4 mg IVPUSH QID PRN PRN Reason: Nausea Pharmacy Consult (Consult Rx Parenteral Nutrition Ordering) 1 each MISCELLANE DAILY PRN PRN Reason: Consult order Sertraline HCl (Sertraline Hcl 100 Mg Tablet) 100 mg PO DAILY [facility] Last Admin: 02/10/25 08:20 Dose: 100 mg Documented By: BRENDA Sodium Chloride (0.9 % Sodium Chloride Flush 3 Ml Syringe) 3 ml IVFLUSH QSHIFT [facility] Last Admin: 02/11/25 00:02 Dose: Not Given Documented By: ALEKSANDRA Non-Admin Reason: IV Running Timolol Maleate (Timolol Maleate 0.5 % Oph Maddy 5 Ml Drbtl) 1 drop EYE-BOTH DAILY [facility] Last Admin: 02/10/25 10:17 Dose: 1 drop Documented By: BRENDA <Jim Núñez - Last Filed: 02/11/25 07:20> Labs CBC & Chem 7: 02/09/25 07:46 02/11/25 06:11 <Jim Núñez - Last Filed: 02/11/25 07:20> Labs: Laboratory Results - last 24 hr 02/10/25 02/11/25 07:08 06:11 Hold Purple Top SEE NOTE Anion Gap 10 L 12 Estim Creat Clear Calc 49.5 54.2 Estimated GFR > 60 > 60 Random Glucose 119 H 146 H Fasting Glucose 115 H Calcium 8.4 8.2 L Phosphorus 1.4 L 1.6 L Magnesium 1.7 1.5 L Albumin 2.7 L 2.6 L Triglycerides 82 <Jim Núñez - Last Filed: 02/11/25 07:20> Microbiology Microbiology Results: Microbiology 02/08/25 Unknown Urine Culture - Final Urine Catheterized - [place] Catheter Escherichia coli <Jim Wilton - Last Filed: 02/11/25 07:20> Procedures Date of Service Date of Service: 02/11/25 <Jim Núñez - Last Filed: 02/11/25 07:20> 02/11/25 <Odalys Coleman PA-C - Last Filed: 02/11/25 13:18> 02/11/25 <Jose Marino MD - Last Filed: 02/11/25 13:31> Progress Note: A&P Assessment and plan (1) S/P colon resection: Status: Acute <Jim Núñez - Last Filed: 02/11/25 07:20> (2) Carcinomatosis: Status: Acute <Jim Wilton - Last Filed: 02/11/25 07:20> (3) SBO (small bowel obstruction): Status: Acute <Jim Núñez - Last Filed: 02/11/25 07:20> Assessment and Plan: Lucie is POD 3 from exploratory laparotom, ileocolectomy, appendectomy. Incisions healing well, with diffuse residual abdominal tenderness. No n/v, chest pain, shortness of breath, or urinary symptoms, most likely multifactorial from post-op ileus and local inflammation. On rocephin for UTI. On TPN. CIWA protocol active. Pain well-managed on tylenol. Encouraged incentive spirometry use and ambulation today. <Jim Núñez - Last Filed: 02/11/25 07:20> Lucie is POD 3 from exploratory laparotomy, ileocolectomy, appendectomy. Incisions healing well, with diffuse residual abdominal tenderness. No n/v, chest pain, shortness of breath, or urinary symptoms, most likely multifactorial from post-op ileus and local inflammation. On rocephin for UTI. On TPN. CIWA protocol active. Pain well-managed on tylenol. Encouraged incentive spirometry use and ambulation today. Agree with above assessment and plan by Arturo Núñez MS-3. Patient tired but non toxic appearing. Passing flatus. Feels like she could eat food. VSS. Abd appears less distended, softer this morning. Incision clean. Appropriate post op tenderness. Will advance to clear liquids. Cont PPN until PO intake adequate. Incentive spirometry 10x/hr. Increasing ambulation and activity, PT consult. Cont rocephin for UTI (day 3). Pathology still pending. Will obtain oncology consult prior to dc once resulted. Hospitalists following. <Odalys Coleman PA-C - Last Filed: 02/11/25 13:18> Lucie is POD 3 from exploratory laparotomy, ileocolectomy, appendectomy. Incisions healing well, with diffuse residual abdominal tenderness. No n/v, chest pain, shortness of breath, or urinary symptoms, most likely multifactorial from post-op ileus and local inflammation. On rocephin for UTI. On TPN. CIWA protocol active. Pain well-managed on tylenol. Encouraged incentive spirometry use and ambulation today. Agree with above assessment and plan by Arturo Núñez MS-3. Patient tired but non toxic appearing. Passing flatus. Feels like she could eat food. VSS. Abd appears less distended, softer this morning. Incision clean. Appropriate post op tenderness. Will advance to clear liquids. Cont PPN until PO intake adequate. Incentive spirometry 10x/hr. Increasing ambulation and activity, PT consult. Cont rocephin for UTI (day 3). Pathology still pending. Will obtain oncology consult prior to dc once resulted. Hospitalists following. As noted above <Jose Marino MD - Last Filed: 02/11/25 13:31> Time Spent With Patient Time: Total time managing care of this patient today ____ minutes. <Jim Núñez - Last Filed: 02/11/25 07:20> Quality Stroke Does the patient have a stroke diagnosis?: No <Jim Núñez - Last Filed: 02/11/25 07:20> VTE Prior VTE?: No <Jim Núñez - Last Filed: 02/11/25 07:20> VTE Risk Level:: Surgical - moderate <Jim Núñez - Last Filed: 02/11/25 07:20> VTE Device Contraindication: N/A - Device Ordered <Jim Núñez - Last Filed: 02/11/25 07:20> VTE Drug Contraindication: Treatment Not Indicated <Jim Núñez - Last Filed: 02/11/25 07:20>
[2025-02-11] MEDS: LORazepam 2 MG/ML VIAL 0.5 MG IVPUSH (09:10)
[2025-02-11] MEDS: Thiamine HCL 100 MG in 0.9 % Sodium Chloride 100 ML 202 MG IV (09:10)
[2025-02-11] MEDS: 0.9 % Sodium Chloride Flush 3 ML SYRINGE IVFLUSH ×2 (09:13→17:47)
[2025-02-11] MEDS: Sertraline HCL 100 MG TABLET PO (09:13)
[2025-02-11] MEDS: Folic Acid 1 MG in 0.9 % Sodium Chloride 50 ML 100.4 MG IV (09:14)
[2025-02-11] MEDS: timoloL maleate 0.5 % Oph Sol 5 ML DRBTL 1 DROP EYE-BOTH (09:14)
--- NOTE | 2025-02-11 10:44 | MHC.CLN ---
F/U CONTINUES WITH PPN REVIEWED LABS; TRIGS 82 DISCUSSED WITH PHARMACY RECOMMEND PPN AT 70 ML PER HOUR WITH 60G LIPIDS TO PROVIDE 1457 TOTAL KCALS (29KCALS/KG), 71 G PROTEIN (1.43G/KG), 168 G DEXTROSE REPLETE LYTES NEEDED FOLLOWING FOR DIET ADVANCEMENT
--- NOTE | 2025-02-11 11:57 | P.PNADD_ITS ---
Subjective Subjective Date of Service: 02/11/25 Reason For Visit: Appendiceal ca, SBO Interim History: Patient seen in follow up for alcohol use disorder and concern of withdrawal Today, patient is awake, alert and engaged in interview. Discussed concern for alcohol withdrawal and alcohol use prior to admission She reports she drinks 1-2 nips and one do high life daily---although she states she will sometimes go 2 or 3 days without anything She denies any history of withdrawal sx or treatment She reports that her alcohol use never negatively impacted her ability to work or tend to her responsibilities She denies any withdrawal sx including anxiety, tremor. Stating she has no appetite. She is reporting poor sleep and states that this is her first hospital admission She appears calm, not diaphoretic or restless, some grimacing noted when repositioning This morning CIWA score 2. She is hypertensive with last documented BP 171/96 This morning received lorazepam 0.5mg with positive effect as per patient Review of Systems Constitutional: Reports as per HPI, Reports body ache(s), Reports difficulty sleeping and Reports malaise Psychiatric: Reports abnormal sleep pattern and Reports anxiety (related to health concerns and being in the hospital ) Mental Status Exam Mental Status Exam Patient Appearance: Appropriate Patient Orientation: Person, Place and Situation Level of Consciousness: Awake, Appropriate and Alert Patient Behavior: Appropriate and Talkative Affect Description: Constricted Speech Pattern: Clear Hallucinations: None Thought Content: positive for Intact Judgement: Good Diagnostics Vital Signs (24Hr): Vital Signs - 24 hr 02/10/25 15:01 02/10/25 19:17 02/10/25 23:22 Temperature 98.1 F 98.6 F 98.3 F Pulse Rate 90 87 85 Respiratory Rate 16 16 18 Blood Pressure 144/71 H 160/88 H 162/74 H Pulse Oximetry 93 94 94 Oxygen Delivery Method Room Air Room Air Room Air 02/11/25 03:16 02/11/25 07:52 Temperature 98 F 98.1 F Pulse Rate 74 90 Respiratory Rate 18 16 Blood Pressure 166/88 H 171/96 H Pulse Oximetry 95 94 Oxygen Delivery Method Room Air Room Air BMI result Body Mass Index 22.1 Labs 02/09/25 07:46 02/11/25 06:11 Labs: Laboratory Results - last 48 hr 02/09/25 02/10/25 02/11/25 07:46 07:08 06:11 Hold Purple Top SEE NOTE Sodium 141 136 Potassium 3.3 4.0 D Chloride 102 103 Carbon Dioxide 32 H 25 Anion Gap 10 L 12 BUN 18 H 10 Creatinine 0.68 0.62 Estim Creat Clear Calc 49.5 54.2 Estimated GFR > 60 > 60 Random Glucose 119 H 146 H Fasting Glucose 115 H Calcium 8.4 8.2 L Phosphorus 2.0 L 1.4 L 1.6 L Magnesium 1.6 1.7 1.5 L Albumin 2.8 L 2.7 L 2.6 L Triglycerides 82 Medications Medications Current Medications Ceftriaxone Sodium (Ceftriaxone Sodium 1 Gm Vial) 1 gm IVPUSH Q24H [facility] Last Admin: 02/10/25 15:11 Dose: 1 gm Hydromorphone HCl (Hydromorphone Hcl 0.5 Mg/0.5 Ml Syringe) 0.5 mg IVPUSH Q3H PRN; Protocol PRN Reason: Pain, Severe (Pain Scale 7-10) Thiamine HCl 100 mg/ Sodium (Chloride) 101 mls @ 202 mls/hr IV DAILY [facility] Last Infusion: 02/11/25 10:57 Dose: Infused Folic Acid 1 mg/ Sodium (Chloride) 50.2 mls @ 100.4 mls/hr IV DAILY [facility] Last Infusion: 02/11/25 10:57 Dose: Infused Nutrition (Parenteral) (Parenteral Nutrition) 1,680 mls @ 70 mls/hr IV .Q24H [facility]; Protocol Stop: 02/11/25 20:59 Last Admin: 02/10/25 19:48 Dose: 70 mls/hr Nutrition (Parenteral) (Parenteral Nutrition) 1,680 mls @ 70 mls/hr IV .Q24H [facility]; Protocol Stop: 02/12/25 20:59 Latanoprost (Latanoprost 0.005 % Ophth Maddy 2.5 Ml Drops) 1 drop EYE-BOTH BEDTIME [facility] Last Admin: 02/10/25 19:48 Dose: 1 drop Lorazepam (Lorazepam 2 Mg/Ml Vial) 0.5 mg IVPUSH Q4H PRN PRN Reason: Anxiety Last Admin: 02/11/25 09:10 Dose: 0.5 mg Lorazepam (Lorazepam 2 Mg/Ml Vial) 0.25 mg IVPUSH BID [facility] Melatonin (Melatonin 3 Mg Tablet) 6 mg PO BEDTIME PRN PRN Reason: Insomnia Last Admin: 02/09/25 21:42 Dose: 6 mg Multi-Ingred Medicated Throat [place] (Throat [place], Medicated 177 Ml Bottle) 1 spray MUCOUS MEM Q2H PRN PRN Reason: sore throat Ondansetron HCl (Ondansetron Hcl 4 Mg/2 Ml Vial) 4 mg IVPUSH QID PRN PRN Reason: Nausea Pharmacy Consult (Consult Rx Parenteral Nutrition Ordering) 1 each MISCELLANE DAILY PRN PRN Reason: Consult order Sertraline HCl (Sertraline Hcl 100 Mg Tablet) 100 mg PO DAILY [facility] Last Admin: 02/11/25 09:13 Dose: 100 mg Sodium Chloride (0.9 % Sodium Chloride Flush 3 Ml Syringe) 3 ml IVFLUSH QSHIFT [facility] Last Admin: 02/11/25 09:13 Dose: 3 ml Timolol Maleate (Timolol Maleate 0.5 % Oph Maddy 5 Ml Drbtl) 1 drop EYE-BOTH DAILY [facility] Last Admin: 02/11/25 09:14 Dose: 1 drop Allergies Allergies Allergy/AdvReac Type Severity Reaction Status Date / Time Penicillins [PENICILLINS] Allergy Intermediate RASH Verified 02/07/25 11:53 penicillin V Allergy Unknown rash Verified 02/07/25 11:53 clams [CLAMS] AdvReac Intermediate NAUSEA Verified 02/07/25 11:53 Assessment & Plan Assessment & Plan (1) Alcohol use disorder: Status: Acute Code(s): F10.90 - Alcohol use, unspecified, uncomplicated Assessment and Plan: * withdrawal sx mild --impaired sleep and restlessness reported prior. * lorazepam BID scheduled * encourage melatonin in the evenings for sleep * will check in tmrw AM Total time managing care of this patient today _35___ minutes.
[2025-02-11] MEDS: cefTRIAXone sodium 1 GM VIAL IVPUSH (17:47)
[2025-02-11] MEDS: LORazepam 2 MG/ML VIAL 0.25 MG IVPUSH (20:36)
[2025-02-11] MEDS: Parenteral Nutrition 1,680 ML 70 ML IV (20:36)
[2025-02-11] MEDS: Latanoprost 0.005 % Ophth Sol 2.5 ML DROPS 1 DROP EYE-BOTH (20:37)
--- NOTE | 2025-02-11 23:57 | PC.NURSE ---
At about 2155 patient's bed alarm went off, staff ran into the room and found patient on the bathroom floor, near the toilet. Upon assessment, patient denies falling, patient reported she slid down by the toilet. Patient is alert and oriented, aware she is in the hospital. This event was not witnessed, patient reported multiple times I did not fall. Patient with no evident injuries, denies injuring any part of her body. Patient able to move all extremities without difficulty, good range of motion, no signs of discoloration, able to move head and neck freely. Vital signs stable. Dr. Moore and nursing supervisor [employer] made aware. Telesitter camera placed in patient's room, educated patient on use of telesitter and high fall risk precautions. Re educated patient on using callbell for assistance. Bed alarm on and active.
[2025-02-12] VITALS (7 sets, daily range): BP systolic 115–168; BP diastolic 67–90; PULSE 67–87; RESP 16–18; TEMP 36.1–36.9; O2SAT 93–97
--- NOTE | 2025-02-12 07:05 | P.PNGS_ITS ---
Subjective Subjective Date of Service: 02/12/25 <Jim Núñez - Last Filed: 02/12/25 07:18> 02/12/25 <Odalys Coleman PA-C - Last Filed: 02/12/25 10:09> 02/12/25 <Jose Marino MD - Last Filed: 02/12/25 11:12> Interval history: She was found in the restroom overnight, but per nurse note, pt denies hx of fall. Lucie feels better this morning. She was awake upon examiner entry. She has no acute complaints this morning. No n/v, chest pain or tightness, shortness of breath, urinary pain or burning. <Jim Núñez - Last Filed: 02/12/25 07:18> Physical Exam 2 Vital Signs: Vital Signs: Last Vital Signs Temp 97.6 F 02/12/25 04:00 Pulse 85 02/12/25 04:00 Resp 18 02/12/25 04:00 BP 168/88 H 02/12/25 04:00 Pulse Ox 93 02/12/25 04:00 O2 Del Method Room Air 02/12/25 04:00 O2 Flow Rate 2 02/10/25 07:42 BMI result Body Mass Index 22.1 <Jim Wilton - Last Filed: 02/12/25 07:18> Const: General: comfortable, no acute distress and tired appearing < Jim Wilton - Last Filed: 02/12/25 07:18> Orientation/consciousness: patient oriented x3 <[facility] - Last Filed: 02/12/25 07:18> Chest: Other: CTAB speaking in full sentences <Jim Wilton - Last Filed: 02/12/25 07:18> Resp: Effort & Inspection: normal respiratory effort <Odalys Coleman PA-C - Last Filed: 02/12/25 10:09> GI: Other: soft, minimally distended incisions healing with no induration. Mild erythema mildly tender to palpation diffusely. <Jim Núñez - Last Filed: 02/12/25 07:18> Other: soft, minimally distended incisions healing with no induration. moderate ecchymosis on right side extending laterally mildly tender to palpation diffusely. <Odalys Coleman PA-C - Last Filed: 02/12/25 10:09> Neuro: Other: moving all extremities spontaneously <Jim Núñez - Last Filed: 02/12/25 07:18> General: patient oriented x3 <Jim Núñez - Last Filed: 02/12/25 07:18> Objective Data Active Medications Ceftriaxone Sodium (Ceftriaxone Sodium 1 Gm Vial) 1 gm IVPUSH Q24H [facility] Last Admin: 02/11/25 17:47 Dose: 1 gm Documented By: HUMZA Hydromorphone HCl (Hydromorphone Hcl 0.5 Mg/0.5 Ml Syringe) 0.5 mg IVPUSH Q3H PRN; Protocol PRN Reason: Pain, Severe (Pain Scale 7-10) Thiamine HCl 100 mg/ Sodium (Chloride) 101 mls @ 202 mls/hr IV DAILY [facility] Last Infusion: 02/11/25 10:57 Dose: Infused Documented By: HUMZA Folic Acid 1 mg/ Sodium (Chloride) 50.2 mls @ 100.4 mls/hr IV DAILY [facility] Last Infusion: 02/11/25 10:57 Dose: Infused Documented By: HUMZA Nutrition (Parenteral) (Parenteral Nutrition) 1,680 mls @ 70 mls/hr IV .Q24H [facility]; Protocol Stop: 02/12/25 20:59 Last Admin: 02/11/25 20:36 Dose: 70 mls/hr Documented By: HUGH Labetalol HCl (Labetalol Hcl 100 Mg/20 Ml Vial) 10 mg IVPUSH Q6H [facility] Latanoprost (Latanoprost 0.005 % Ophth Maddy 2.5 Ml Drops) 1 drop EYE-BOTH BEDTIME [facility] Last Admin: 02/11/25 20:37 Dose: 1 drop Documented By: HUGH Lorazepam (Lorazepam 2 Mg/Ml Vial) 0.5 mg IVPUSH Q4H PRN PRN Reason: Anxiety Last Admin: 02/11/25 09:10 Dose: 0.5 mg Documented By: HUMZA Lorazepam (Lorazepam 2 Mg/Ml Vial) 0.25 mg IVPUSH BID [facility] Last Admin: 02/11/25 20:36 Dose: 0.25 mg Documented By: HUGH Melatonin (Melatonin 3 Mg Tablet) 6 mg PO BEDTIME PRN PRN Reason: Insomnia Last Admin: 02/09/25 21:42 Dose: 6 mg Documented By: JAMEEL Multi-Ingred Medicated Throat [place] (Throat [place], Medicated 177 Ml Bottle) 1 spray MUCOUS MEM Q2H PRN PRN Reason: sore throat Ondansetron HCl (Ondansetron Hcl 4 Mg/2 Ml Vial) 4 mg IVPUSH QID PRN PRN Reason: Nausea Pharmacy Consult (Consult Rx Parenteral Nutrition Ordering) 1 each MISCELLANE DAILY PRN PRN Reason: Consult order Sertraline HCl (Sertraline Hcl 100 Mg Tablet) 100 mg PO DAILY [facility] Last Admin: 02/11/25 09:13 Dose: 100 mg Documented By: HUMZA Sodium Chloride (0.9 % Sodium Chloride Flush 3 Ml Syringe) 3 ml IVFLUSH QSHIFT [facility] Last Admin: 02/11/25 23:06 Dose: Not Given Documented By: HUGH Non-Admin Reason: IV Running Timolol Maleate (Timolol Maleate 0.5 % Oph Maddy 5 Ml Drbtl) 1 drop EYE-BOTH DAILY [facility] Last Admin: 02/11/25 09:14 Dose: 1 drop Documented By: HUMZA <Jim Núñez - Last Filed: 02/12/25 07:18> Labs CBC & Chem 7: 02/09/25 07:46 02/12/25 06:49 <Jim Núñez - Last Filed: 02/12/25 07:18> Labs: Laboratory Results - last 24 hr 02/12/25 06:00 Hold Purple Top SEE NOTE <Jim Núñez - Last Filed: 02/12/25 07:18> Procedures Date of Service Date of Service: 02/12/25 <Jim Núñez - Last Filed: 02/12/25 07:18> 02/12/25 <Odalys Coleman PA-C - Last Filed: 02/12/25 10:09> 02/12/25 <Jose Marino MD - Last Filed: 02/12/25 11:12> Progress Note: A&P Assessment and plan (1) S/P colon resection: Status: Acute <Jim Núñez - Last Filed: 02/12/25 07:18> (2) SBO (small bowel obstruction): Status: Acute <[facility] - Last Filed: 02/12/25 07:18> (3) Carcinomatosis: Status: Acute <[facility] - Last Filed: 02/12/25 07:18> (4) UTI (urinary tract infection): Status: Acute <[facility] - Last Filed: 02/12/25 07:18> Assessment and Plan: Lucie is POD 4 from exploratory laparotomy, ileocolectomy, appendectomy. Mildly hypertensive to SBP 150-160s, likely multifactorial in origin from UTI, EtOH withdrawal. s/p lap, ileocolectomy, appendectomy incisions healing well with appropriate post op tenderness. HTN likely mutlifactorial from alcohol withdrawal, UTI. NPO, on PPN. Tolerating sips currently. Following lytes, with AM labs pending. UTI continue rocephin 1 g. Day 4 of tx Encouraged spirometry use. Ambulating to restroom with assistance. Arturo Núñez MS3 <Jim [facility] - Last Filed: 02/12/25 07:18> Lucie is POD 4 from exploratory laparotomy, ileocolectomy, appendectomy. Mildly hypertensive to SBP 150-160s, likely multifactorial in origin from UTI, EtOH withdrawal. s/p lap, ileocolectomy, appendectomy incisions healing well with appropriate post op tenderness. HTN likely mutlifactorial from alcohol withdrawal, UTI. NPO, on PPN. Tolerating sips currently. Following lytes, with AM labs pending. UTI continue rocephin 1 g. Day 4 of tx Encouraged spirometry use. Ambulating to restroom with assistance. Arturo Núñez MS3 Agree with Wilton MS-3. Patient reports tolerating liquids without nausea. She is passing flatus and had BM yesterday. Difficulty ambulating per RN. VSS- has been hypertensive- started on labetolol by hospitalists. Abd less distended this morning, soft, incision clean with ecchymosis extending laterally on right. Will advance to full liquids as she does not feel ready for solids yet. Cont PPN until PO intake increased. Cont OOB/ambulation and increasing activity as tolerated. PT recommend STR. She is in agreement. 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 On rocephin for UTI. <LITZY Jha - Last Filed: 02/12/25 10:09> Lucie is POD 4 from exploratory laparotomy, ileocolectomy, appendectomy. Mildly hypertensive to SBP 150-160s, likely multifactorial in origin from UTI, EtOH withdrawal. s/p lap, ileocolectomy, appendectomy incisions healing well with appropriate post op tenderness. HTN likely mutlifactorial from alcohol withdrawal, UTI. NPO, on PPN. Tolerating sips currently. Following lytes, with AM labs pending. UTI continue rocephin 1 g. Day 4 of tx Encouraged spirometry use. Ambulating to restroom with assistance. Arturo Núñez, MS3 Agree with Wilton MS-3. Patient reports tolerating liquids without nausea. She is passing flatus and had BM yesterday. Difficulty ambulating per RN. VSS- has been hypertensive- started on labetolol by hospitalists. Abd less distended this morning, soft, incision clean with ecchymosis extending laterally on right. Will advance to full liquids as she does not feel ready for solids yet. Cont PPN until PO intake increased. Cont OOB/ambulation and increasing activity as tolerated. PT recommend STR. She is in agreement. 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 On rocephin for UTI. Discussion was had with patient this morning regarding intraoperative findings and pathology results. <Jose Marino MD - Last Filed: 02/12/25 11:12> Time Spent With Patient Time: Total time managing care of this patient today ____ minutes. <Jim Núñez - Last Filed: 02/12/25 07:18> Quality Stroke Does the patient have a stroke diagnosis?: No <Jim Núñez - Last Filed: 02/12/25 07:18> VTE Prior VTE?: No <Jim Núñez - Last Filed: 02/12/25 07:18> VTE Risk Level:: Surgical - moderate <Jim Núñez - Last Filed: 02/12/25 07:18> VTE Device Contraindication: N/A - Device Ordered <Jim Núñez - Last Filed: 02/12/25 07:18> VTE Drug Contraindication: Treatment Not Indicated <Jim Núñez - Last Filed: 02/12/25 07:18>
[2025-02-12 07:16] LABS: Albumin Level 2.9 g/dL (3.5-5.0); Anion Gap 15 (12-20); Blood Urea Nitrogen 11 mg/dL (9-16); Calcium 8.4 mg/dL (8.4-10.2); Carbon Dioxide 21 mmol/L (22-29); Chloride 103 mmol/L (96-108); Creatinine Clr Calc Pharmacy 54.2; Estimated Glomerular Filt Rate > 60; Glucose Random 118 mg/dL (60-115); Magnesium 1.7 mg/dL (1.6-2.6); Phosphorus 3.4 mg/dL (2.7-4.5); Potassium 4.2 mmol/L (3.3-5.1); Sodium 135 mmol/L (135-145)
[2025-02-12] MEDS: Thiamine HCL 100 MG in 0.9 % Sodium Chloride 100 ML 202 MG IV (07:28)
[2025-02-12] MEDS: Sertraline HCL 100 MG TABLET PO (07:28)
[2025-02-12] MEDS: 0.9 % Sodium Chloride Flush 3 ML SYRINGE IVFLUSH ×2 (07:29→16:43)
[2025-02-12] MEDS: LORazepam 2 MG/ML VIAL 0.25 MG IVPUSH ×2 (07:29→21:39)
--- NOTE | 2025-02-12 07:30 | HO.PM.IMPN ---
Subjective Subjective Date of Service: 02/12/25 Interval History: Patient denied abdominal pain, chest pain, nausea or shortness on breath. Review of Systems Review of Systems: Yes Unobtainable due to mental condition Physical Exam Vital Signs: Vital Signs: Last Vital Signs Temp 97.6 F 02/12/25 04:00 Pulse 85 02/12/25 04:00 Resp 18 02/12/25 04:00 BP 168/88 H 02/12/25 04:00 Pulse Ox 93 02/12/25 04:00 O2 Del Method Room Air 02/12/25 04:00 O2 Flow Rate 2 02/10/25 07:42 BMI result Body Mass Index 22.1 Constitutional - Awake and Alert, No apparent distress. Pleasant. Cooperative. HEENT - PERRL, EOMI. Normal sclerae. Heart - S1S2, RRR, No murmurs Lungs - Normal lung expansion, Normal respiratory effort, No respiratory distress, CTA bilaterally Abdomen - Mildly distended. Bowel sounds decreased. Non tenderness. Surgical wound is clean w/ mild surrounding erythema. Extremities - no calf tenderness bilaterally, no swelling Musculoskeletal - Normal inspection, normal ROM Skin - Warm/Dry. No jaundice. Neurological - Alert & oriented x3. Moving all extremities spontaneously. Psychological - Appropriate affect Objective Data Active Medications Ceftriaxone Sodium (Ceftriaxone Sodium 1 Gm Vial) 1 gm IVPUSH Q24H [facility] Last Admin: 02/11/25 17:47 Dose: 1 gm Documented By: HUMZA Hydromorphone HCl (Hydromorphone Hcl 0.5 Mg/0.5 Ml Syringe) 0.5 mg IVPUSH Q3H PRN; Protocol PRN Reason: Pain, Severe (Pain Scale 7-10) Thiamine HCl 100 mg/ Sodium (Chloride) 101 mls @ 202 mls/hr IV DAILY [facility] Last Infusion: 02/11/25 10:57 Dose: Infused Documented By: HUMZA Folic Acid 1 mg/ Sodium (Chloride) 50.2 mls @ 100.4 mls/hr IV DAILY [facility] Last Infusion: 02/11/25 10:57 Dose: Infused Documented By: HUMZA Nutrition (Parenteral) (Parenteral Nutrition) 1,680 mls @ 70 mls/hr IV .Q24H [facility]; Protocol Stop: 02/12/25 20:59 Last Admin: 02/11/25 20:36 Dose: 70 mls/hr Documented By: HUGH Acetaminophen (Ofirmev) 1,000 mg in 100 mls @ 400 mls/hr IV Q12H [facility] Stop: 02/13/25 07:44 Labetalol HCl (Labetalol Hcl 100 Mg/20 Ml Vial) 10 mg IVPUSH Q6H [facility] Latanoprost (Latanoprost 0.005 % Ophth Maddy 2.5 Ml Drops) 1 drop EYE-BOTH BEDTIME [facility] Last Admin: 02/11/25 20:37 Dose: 1 drop Documented By: HUGH Lorazepam (Lorazepam 2 Mg/Ml Vial) 0.5 mg IVPUSH Q4H PRN PRN Reason: Anxiety Last Admin: 02/11/25 09:10 Dose: 0.5 mg Documented By: HUMZA Lorazepam (Lorazepam 2 Mg/Ml Vial) 0.25 mg IVPUSH BID [facility] Last Admin: 02/11/25 20:36 Dose: 0.25 mg Documented By: HUGH Melatonin (Melatonin 3 Mg Tablet) 6 mg PO BEDTIME PRN PRN Reason: Insomnia Last Admin: 02/09/25 21:42 Dose: 6 mg Documented By: JAMEEL Multi-Ingred Medicated Throat [place] (Throat [place], Medicated 177 Ml Bottle) 1 spray MUCOUS MEM Q2H PRN PRN Reason: sore throat Ondansetron HCl (Ondansetron Hcl 4 Mg/2 Ml Vial) 4 mg IVPUSH QID PRN PRN Reason: Nausea Pharmacy Consult (Consult Rx Parenteral Nutrition Ordering) 1 each MISCELLANE DAILY PRN PRN Reason: Consult order Sertraline HCl (Sertraline Hcl 100 Mg Tablet) 100 mg PO DAILY [facility] Last Admin: 02/11/25 09:13 Dose: 100 mg Documented By: HUMZA Sodium Chloride (0.9 % Sodium Chloride Flush 3 Ml Syringe) 3 ml IVFLUSH QSHIFT [facility] Last Admin: 02/11/25 23:06 Dose: Not Given Documented By: HUGH Non-Admin Reason: IV Running Timolol Maleate (Timolol Maleate 0.5 % Oph Maddy 5 Ml Drbtl) 1 drop EYE-BOTH DAILY [facility] Last Admin: 02/11/25 09:14 Dose: 1 drop Documented By: HUMZA Labs 02/09/25 07:46 02/12/25 06:49 Labs: Laboratory Results - last 24 hr 02/12/25 02/12/25 06:00 06:49 Hold Purple Top SEE NOTE Anion Gap 15 Estim Creat Clear Calc 54.2 Estimated GFR > 60 Random Glucose 118 H Calcium 8.4 Phosphorus 3.4 Magnesium 1.7 Albumin 2.9 L Assessment and Plan (1) Alcohol use disorder: Status: Acute (2) SBO (small bowel obstruction): Status: Acute Plan Lucie Dhaliwal this is a very pleasant 74 years old woman admitted with: SBO s/p exploratory laparotomy. Treatment per surgery. . Alcohol abuse. Patient has been advised to abstain alcohol consumptions. On CIWA. Continue thiamine and folic acid. Hypertension. Labetalol 10 mg IV every 6 hours. UTI E coli. On ceftriaxone. Anxiety. Ativan b.i.d. and as needed. History of depression. Continue sertraline when able. Tobacco dependence. Tobacco cessation education. Will sign off. Quality Stroke Does the patient have a stroke diagnosis?: No VTE Prior VTE?: No VTE Risk Level:: Surgical - moderate VTE Device Contraindication: N/A - Device Ordered VTE Drug Contraindication: Treatment Not Indicated
[2025-02-12] MEDS: Labetalol HCL 100 MG/20 ML VIAL 10 MG IVPUSH (08:23)
[2025-02-12] MEDS: Acetaminophen 1,000 MG/100 ML PIGGYBACK 400 MG IV ×2 (08:24→19:51)
[2025-02-12] MEDS: Folic Acid 1 MG in 0.9 % Sodium Chloride 50 ML 100.4 MG IV (08:33)
[2025-02-12] MEDS: timoloL maleate 0.5 % Oph Sol 5 ML DRBTL 1 DROP EYE-BOTH (08:40)
--- NOTE | 2025-02-12 11:51 | MHC.CLN ---
F/U DIET ADVANCED TODAY TO FULL LIQUIDS. CONTINUES WITH PPN. REVIEWED LABS. COMMUNICATED WITH PHARMACY. RECOMMEND CONTINUE PPN AT MAX GOAL RATE: PPN AT 70 ML PER HOUR WITH 60G LIPIDS TO PROVIDE 1457 TOTAL KCALS (29KCALS/KG), 71 G PROTEIN (1.43G/KG), 168 G DEXTROSE. REPLETE LYTES NEEDED. FOLLOWING FOR DIET ADVANCEMENT. RD CAN BE REACHED VIA TIGER TEXT OFF HOURS.
--- NOTE | 2025-02-12 11:54 | PM.HEMONCCN ---
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 She presented with abdominal pain and underwent colonoscopy with Dr. Mccormick on 01/27/2025. 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 MSI stable. She saw Dr. Marino for surgical consultation on 02/04/2025, however she presented to emergency department on 02/07/2025 with complaints of abdominal pain and inability to eat or drink fluids. CT scan with IV contrast showed a high-grade small-bowel obstruction of the level of the distal ileum within the right hemipelvis, colon was nearly completely decompressed. Severe distention of stomach with fluid and mild thickening of distal esophagus. Apple core type appearance of the distal ileum at the site of transition raising possibility of an underlying mass. On 02/08/2025 she underwent exploratory laparotomy, ileocolectomy, appendectomy, omental biopsy and aspiration of peritoneal fluid for cytology. At this time she was recovering from surgery. She denies abdominal pain, nausea or emesis. No fever or chills. She says she lives at home with her . She has no children. As per records, she consumes alcohol daily 2-3 drinks a day. She is not a good historian. Review of Systems - Constitutional Reports as per [facility] Medical History: Medical History (Last Reviewed 02/11/25 @ 13:44 by Fatimah Garcia, PT) Memory loss Mild cognitive impairment Osteoarthritis of right hip Osteopenia Pure hypercholesterolemia Skin lesion Family History: Family History (Last Reviewed 02/08/25 @ 12:52 by Keyana Alfred MD) Father Heart attack Mother Ovarian cancer Maternal Grandmother Breast cancer Surgical History: Surgical History (Last Reviewed 02/11/25 @ 13:44 by Fatimah Garcia, PT) History of rectal polypectomy History of wisdom tooth extraction Hx of colonoscopy Onset Date: ~2016 Social History: Social History (Last Reviewed 02/08/25 @ 12:52 by Keyana Alfred MD) Living Situation History: Household Members: Spouse Housing: House Are you a primary palliative care physician to a significant other at home: No Do you presently have visiting nurse or other home services: No Tobacco History: Patient Tobacco Use Status: Current everyday Tobacco Tobacco use type: Cigarette Cigarette Packs Per Day: 10 e-Cigarette/Vaping Use: Never Used Second Hand Smoke Exposure: No Substance Use History: Substance Use Type: Marijuana Occupation Assessmet: service: No Current occupational status: retired Home Medications and Allergies Current Medications: Current Medications Ceftriaxone Sodium (Ceftriaxone Sodium 1 Gm Vial) 1 gm IVPUSH Q24H [facility] Last Admin: 02/11/25 17:47 Dose: 1 gm Hydromorphone HCl (Hydromorphone Hcl 0.5 Mg/0.5 Ml Syringe) 0.5 mg IVPUSH Q3H PRN; Protocol PRN Reason: Pain, Severe (Pain Scale 7-10) Thiamine HCl 100 mg/ Sodium (Chloride) 101 mls @ 202 mls/hr IV DAILY [facility] Last Infusion: 02/12/25 08:38 Dose: Infused Folic Acid 1 mg/ Sodium (Chloride) 50.2 mls @ 100.4 mls/hr IV DAILY [facility] Last Infusion: 02/12/25 09:15 Dose: Infused Nutrition (Parenteral) (Parenteral Nutrition) 1,680 mls @ 70 mls/hr IV .Q24H [facility]; Protocol Stop: 02/12/25 20:59 Last Admin: 02/11/25 20:36 Dose: 70 mls/hr Acetaminophen (Ofirmev) 1,000 mg in 100 mls @ 400 mls/hr IV Q12H [facility] Stop: 02/13/25 07:44 Last Infusion: 02/12/25 08:49 Dose: Infused Nutrition (Parenteral) (Parenteral Nutrition) 1,680 mls @ 70 mls/hr IV .Q24H [facility]; Protocol Stop: 02/13/25 20:59 Labetalol HCl (Labetalol Hcl 100 Mg/20 Ml Vial) 10 mg IVPUSH Q6H [facility] Last Admin: 02/12/25 08:23 Dose: 10 mg Latanoprost (Latanoprost 0.005 % Ophth Maddy 2.5 Ml Drops) 1 drop EYE-BOTH BEDTIME [facility] Last Admin: 02/11/25 20:37 Dose: 1 drop Lorazepam (Lorazepam 2 Mg/Ml Vial) 0.25 mg IVPUSH BID [facility] Last Admin: 02/12/25 07:29 Dose: 0.25 mg Lorazepam (Lorazepam 2 Mg/Ml Vial) 0.25 mg IVPUSH Q4H PRN PRN Reason: Anxiety Melatonin (Melatonin 3 Mg Tablet) 6 mg PO BEDTIME PRN PRN Reason: Insomnia Last Admin: 02/09/25 21:42 Dose: 6 mg Multi-Ingred Medicated Throat [place] (Throat [place], Medicated 177 Ml Bottle) 1 spray MUCOUS MEM Q2H PRN PRN Reason: sore throat Ondansetron HCl (Ondansetron Hcl 4 Mg/2 Ml Vial) 4 mg IVPUSH QID PRN PRN Reason: Nausea Pharmacy Consult (Consult Rx Parenteral Nutrition Ordering) 1 each MISCELLANE DAILY PRN PRN Reason: Consult order Sertraline HCl (Sertraline Hcl 100 Mg Tablet) 100 mg PO DAILY [facility] Last Admin: 02/12/25 07:28 Dose: 100 mg Sodium Chloride (0.9 % Sodium Chloride Flush 3 Ml Syringe) 3 ml IVFLUSH QSHIFT [facility] Last Admin: 02/12/25 07:29 Dose: 3 ml Timolol Maleate (Timolol Maleate 0.5 % Oph [place] 5 Ml Drbtl) 1 drop EYE-BOTH DAILY [facility] Last Admin: 02/12/25 08:40 Dose: 1 drop Home Medications ?Medication ?Instructions ?Recorded ?Confirmed ?Type latanoprost 0.005 % eye drops 1 drp ophthalmic (eye) BEDTIME 05/16/21 02/07/25 History timolol maleate 0.5 % eye drops 1 drp ophthalmic (eye) DAILY 05/16/21 02/07/25 History multivitamin 1 tab PO DAILY 02/07/25 02/07/25 History Allergies Allergy/AdvReac Type Severity Reaction Status Date / Time Penicillins [PENICILLINS] Allergy Intermediate RASH Verified 02/07/25 11:53 penicillin V Allergy Unknown rash Verified 02/07/25 11:53 clams [CLAMS] AdvReac Intermediate NAUSEA Verified 02/07/25 11:53 Physical Exam Vital signs: Vital Signs Temp 98.4 F 02/12/25 07:39 Pulse 87 02/12/25 09:54 Resp 18 02/12/25 07:39 BP 163/90 H 02/12/25 09:54 Pulse Ox 94 02/12/25 09:54 O2 Del Method Room Air 02/12/25 07:39 O2 Flow Rate 2 02/10/25 07:42 Intake & Output 02/11/25 02/12/25 02/12/25 18:59 06:59 18:59 Intake Total 391.2 / 4111.2 3720 / 4111.2 251.2 / 251.2 Balance 391.2 / 4111.2 3720 / 4111.2 251.2 / 251.2 Intake: Intake, Oral Amount 240 / 1280 1040 / 1280 Intake, IV Amount 151.2 / 2831.2 2680 / 2831.2 251.2 / 251.2 Acetaminophen 1,000 mg In 100 100 / 100 ml @ 400 mls/hr IV Q12H [facility] Rx# :[id number] Folic Acid 1 mg In 0.9 % Sodium 50.2 / 50.2 50.2 / 50.2 Chloride 50 ml @ 100.4 mls/hr IV DAILY [facility] Rx#:[id number] Parenteral Nutrition 1,680 ml @ 1680 / 1680 70 mls/hr IV .Q24H [facility] Rx#: [id number] Thiamine HCL 100 mg In 0.9 % 101 / 101 101 / 101 Sodium Chloride 100 ml @ 202 mls/hr IV DAILY [facility] Rx#: [id number] KCl 20 mEq in 5 % Dex/Lact Rin 1000 / 1000 20 meq In 1,000 ml @ 100 mls/hr IVCONT .Q10H [facility] Rx#: [id number] Other: Meal Refused No NPO Yes Breakfast % Eaten NPO Dinner % Eaten 25% Eating (Feeding) Ability Independent Number of Unmeasured Voids 1 2 Urine Bathroom Bathroom Urine Color Yellow Yellow Last Bowel Movement 02/11/25 02/11/25 02/11/25 Continuous Bladder Irrigation Fluid - Amount Instilled Purewick 1,650 Weight 49.6 kg - Constitutional Present: no acute distress, obese - Routine HEENT Exam Head: Present: normal inspection Eye: Present: PERRL - Routine Neck Exam Present: supple. Absent: lymphadenopathy - Routine Respiratory Exam Present: CTAB. Absent: stridor, wheezes - Routine Cardiovascular Exam Cardiovascular: Present: S1, S2 - Routine Abdominal Exam Present: soft - Routine Extremities Exam Present: pulses intact Hem/Onc Consult Result - Labs CBC & Chem 7: 02/09/25 07:46 02/12/25 06:49 Labs: BMP 02/12/25 06:49 Sodium 135 Potassium 4.2 Chloride 103 Carbon Dioxide 21 L BUN 11 Creatinine 0.62 Calcium 8.4 Liver Function 02/12/25 Range/Units 06:49 Albumin 2.9 L (3.5-5.0) g/dL Assessment and Plan Patient Active problem list reviewed?: Yes (1) Cancer of appendix Status: Acute Assessment and plan: 1. This is a 74-year-old woman diagnosed with stage IV appendiceal carcinoma. 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 Four of 7 lymph nodes positive for metastatic carcinoma, numerous foci of invasive goblet cell adenocarcinoma in the omentum. Tumor measures 4 cm, invades the visceral peritoneum, cecal muscularis and invades ileal serosa. Lymphovascular invasion and perineural invasion present with numerous tumor deposits. Pathological stage pT4b pN2 pM1b Patient will need complete staging workup with CT chest and bone scan or PET-CT scan. She will need systemic therapy, chemotherapy to control disease in the palliative setting. Further discussion will be had with the patient when she is able to take part in discussion and in the presence of her or family member. She will be given an outpatient oncology appointment. I thank you for this referral. - Time Spent With Patient Time Spent with Patient (in minutes): 20 Additional Coding: - Additional E/M codes Complex E/M visit Add On: CPT G2211
--- NOTE | 2025-02-12 11:59 | P.PNADD_ITS ---
Subjective Subjective Date of Service: 02/12/25 Reason For Visit: Appendiceal ca, SBO Interim History: Patient seen in follow up for AUD Resting when seen by t/w, wakes easily to voice. States she slept better last evening Denies any withdrawal sx, including anxiety Continues to be hypertensive --Labetolol initiated this morning Has not required any PRN lorazepam doses CIWA scores have been btwn 0-2 lorazepam BID Review of Systems Medical Review of Systems: unchanged Mental Status Exam Mental Status Exam Patient Appearance: Appropriate Level of Consciousness: Appropriate and Drowsy Patient Behavior: Appropriate (tired) Affect Description: Calm Speech Pattern: Clear Diagnostics Vital Signs (24Hr): Vital Signs - 24 hr 02/11/25 12:00 02/11/25 13:42 02/11/25 15:16 Temperature 98.3 F 98.9 F Pulse Rate 74 74 86 Respiratory Rate 18 18 Blood Pressure 176/82 H 176/82 H 159/89 H Pulse Oximetry 94 94 94 Oxygen Delivery Method Room Air Room Air 02/11/25 19:18 02/11/25 22:00 02/11/25 22:30 Temperature 98 F 97.6 F 97.6 F Pulse Rate 88 97 97 Respiratory Rate 16 18 18 Blood Pressure 141/72 H 156/91 H 156/91 H Pulse Oximetry 94 96 96 Oxygen Delivery Method Room Air Room Air 02/11/25 23:31 02/12/25 04:00 02/12/25 07:39 Temperature 97.9 F 97.6 F 98.4 F Pulse Rate 89 85 87 Respiratory Rate 20 18 18 Blood Pressure 143/86 H 168/88 H 163/90 H Pulse Oximetry 95 93 94 Oxygen Delivery Method Room Air Room Air Room Air 02/12/25 09:54 Temperature Pulse Rate 87 Respiratory Rate Blood Pressure 163/90 H Pulse Oximetry 94 Oxygen Delivery Method BMI result Body Mass Index 22.1 Labs 02/09/25 07:46 02/12/25 06:49 Labs: Laboratory Results - last 48 hr 02/11/25 02/12/25 02/12/25 06:11 06:00 06:49 Hold Purple Top SEE NOTE Sodium 136 135 Potassium 4.0 D 4.2 Chloride 103 103 Carbon Dioxide 25 21 L Anion Gap 12 15 BUN 10 11 Creatinine 0.62 0.62 Estim Creat Clear Calc 54.2 54.2 Estimated GFR > 60 > 60 Random Glucose 146 H 118 H Calcium 8.2 L 8.4 Phosphorus 1.6 L 3.4 Magnesium 1.5 L 1.7 Albumin 2.6 L 2.9 L Triglycerides 82 Medications Medications Current Medications Ceftriaxone Sodium (Ceftriaxone Sodium 1 Gm Vial) 1 gm IVPUSH Q24H [facility] Last Admin: 02/11/25 17:47 Dose: 1 gm Hydromorphone HCl (Hydromorphone Hcl 0.5 Mg/0.5 Ml Syringe) 0.5 mg IVPUSH Q3H PRN; Protocol PRN Reason: Pain, Severe (Pain Scale 7-10) Thiamine HCl 100 mg/ Sodium (Chloride) 101 mls @ 202 mls/hr IV DAILY [facility] Last Infusion: 02/12/25 08:38 Dose: Infused Folic Acid 1 mg/ Sodium (Chloride) 50.2 mls @ 100.4 mls/hr IV DAILY [facility] Last Infusion: 02/12/25 09:15 Dose: Infused Nutrition (Parenteral) (Parenteral Nutrition) 1,680 mls @ 70 mls/hr IV .Q24H [facility]; Protocol Stop: 02/12/25 20:59 Last Admin: 02/11/25 20:36 Dose: 70 mls/hr Acetaminophen (Ofirmev) 1,000 mg in 100 mls @ 400 mls/hr IV Q12H [facility] Stop: 02/13/25 07:44 Last Infusion: 02/12/25 08:49 Dose: Infused Nutrition (Parenteral) (Parenteral Nutrition) 1,680 mls @ 70 mls/hr IV .Q24H [facility]; Protocol Stop: 02/13/25 20:59 Labetalol HCl (Labetalol Hcl 100 Mg/20 Ml Vial) 10 mg IVPUSH Q6H [facility] Last Admin: 02/12/25 08:23 Dose: 10 mg Latanoprost (Latanoprost 0.005 % Ophth Maddy 2.5 Ml Drops) 1 drop EYE-BOTH BEDTIME [facility] Last Admin: 02/11/25 20:37 Dose: 1 drop Lorazepam (Lorazepam 2 Mg/Ml Vial) 0.25 mg IVPUSH BID [facility] Last Admin: 02/12/25 07:29 Dose: 0.25 mg Lorazepam (Lorazepam 2 Mg/Ml Vial) 0.25 mg IVPUSH Q4H PRN PRN Reason: Anxiety Melatonin (Melatonin 3 Mg Tablet) 6 mg PO BEDTIME PRN PRN Reason: Insomnia Last Admin: 02/09/25 21:42 Dose: 6 mg Multi-Ingred Medicated Throat [place] (Throat [place], Medicated 177 Ml Bottle) 1 spray MUCOUS MEM Q2H PRN PRN Reason: sore throat Ondansetron HCl (Ondansetron Hcl 4 Mg/2 Ml Vial) 4 mg IVPUSH QID PRN PRN Reason: Nausea Pharmacy Consult (Consult Rx Parenteral Nutrition Ordering) 1 each MISCELLANE DAILY PRN PRN Reason: Consult order Sertraline HCl (Sertraline Hcl 100 Mg Tablet) 100 mg PO DAILY [facility] Last Admin: 02/12/25 07:28 Dose: 100 mg Sodium Chloride (0.9 % Sodium Chloride Flush 3 Ml Syringe) 3 ml IVFLUSH QSHIFT [facility] Last Admin: 02/12/25 07:29 Dose: 3 ml Timolol Maleate (Timolol Maleate 0.5 % Oph Maddy 5 Ml Drbtl) 1 drop EYE-BOTH DAILY [facility] Last Admin: 02/12/25 08:40 Dose: 1 drop Allergies Allergies Allergy/AdvReac Type Severity Reaction Status Date / Time Penicillins [PENICILLINS] Allergy Intermediate RASH Verified 02/07/25 11:53 penicillin V Allergy Unknown rash Verified 02/07/25 11:53 clams [CLAMS] AdvReac Intermediate NAUSEA Verified 02/07/25 11:53 Assessment & Plan Assessment & Plan (1) Alcohol use disorder: Status: Acute Code(s): F10.90 - Alcohol use, unspecified, uncomplicated Assessment and Plan: * continue to taper lorazepam * per surgery note, patient to d/c to SNF * no additional follow up indicated at this time. Total time managing care of this patient today _15___ minutes.
--- NOTE | 2025-02-12 15:53 | MHC.CM.PN ---
pt not medically clear for dc
[2025-02-12] MEDS: cefTRIAXone sodium 1 GM VIAL IVPUSH (16:43)
[2025-02-12] MEDS: Latanoprost 0.005 % Ophth Sol 2.5 ML DROPS 1 DROP EYE-BOTH (21:39)
[2025-02-12] MEDS: Parenteral Nutrition 1,680 ML 70 ML IV (21:40)
[2025-02-13] VITALS (9 sets, daily range): BP systolic 132–197; BP diastolic 70–100; PULSE 69–80; RESP 17–18; TEMP 36–36.7; O2SAT 95–96
[2025-02-13] MEDS: Labetalol HCL 100 MG/20 ML VIAL 10 MG IVPUSH ×2 (02:24→07:48)
[2025-02-13 07:35] LABS: Albumin Level 2.7 g/dL (3.5-5.0); Anion Gap 13 (12-20); Blood Urea Nitrogen 11 mg/dL (9-16); Calcium 8.4 mg/dL (8.4-10.2); Carbon Dioxide 22 mmol/L (22-29); Chloride 107 mmol/L (96-108); Estimated Glomerular Filt Rate > 60; Glucose Random 125 mg/dL (60-115); Phosphorus 3.5 mg/dL (2.7-4.5); Potassium 4.5 mmol/L (3.3-5.1); Sodium 137 mmol/L (135-145)
[2025-02-13] MEDS: LORazepam 2 MG/ML VIAL 0.25 MG IVPUSH ×3 (07:48→19:24)
[2025-02-13] MEDS: Acetaminophen 1,000 MG/100 ML PIGGYBACK 400 MG IV (07:49)
[2025-02-13] MEDS: Sertraline HCL 100 MG TABLET PO (07:54)
[2025-02-13] MEDS: Thiamine HCL 100 MG in 0.9 % Sodium Chloride 100 ML 202 MG IV (08:16)
[2025-02-13] MEDS: Folic Acid 1 MG in 0.9 % Sodium Chloride 50 ML 100.4 MG IV (08:52)
[2025-02-13] MEDS: timoloL maleate 0.5 % Oph Sol 5 ML DRBTL 1 DROP EYE-BOTH (08:54)
--- NOTE | 2025-02-13 09:04 | P.PNGS_ITS ---
Subjective Subjective Date of Service: 02/13/25 Interval history: States she is okay this morning Admits that she is weak, and depressed Tolerating diet Passing flatus and BMs Denies significant pain Physical Exam 2 Vital Signs: Vital Signs: Last Vital Signs Temp 97.6 F 02/13/25 07:54 Pulse 75 02/13/25 07:54 Resp 18 02/13/25 07:54 BP 138/82 02/13/25 07:54 Pulse Ox 95 02/13/25 07:54 O2 Del Method Room Air 02/13/25 07:54 O2 Flow Rate 2 02/10/25 07:42 BMI result Body Mass Index 22.1 Const: General: comfortable and no acute distress Resp: Effort & Inspection: normal respiratory effort Cardio: Rate: regular rate GI: Other: Incision clean and dry Palpation (GI): Soft to palpation, not firm and no guarding Objective Data Active Medications Ceftriaxone Sodium (Ceftriaxone Sodium 1 Gm Vial) 1 gm IVPUSH Q24H [facility] Last Admin: 02/12/25 16:43 Dose: 1 gm Documented By: HUMZA Thiamine HCl 100 mg/ Sodium (Chloride) 101 mls @ 202 mls/hr IV DAILY [facility] Last Admin: 02/13/25 08:16 Dose: 202 mls/hr Documented By: ALEXIA Folic Acid 1 mg/ Sodium (Chloride) 50.2 mls @ 100.4 mls/hr IV DAILY [facility] Last Admin: 02/13/25 08:52 Dose: 100.4 mls/hr Documented By: ALEXIA Nutrition (Parenteral) (Parenteral Nutrition) 1,680 mls @ 70 mls/hr IV .Q24H [facility]; Protocol Stop: 02/13/25 20:59 Last Admin: 02/12/25 21:40 Dose: 70 mls/hr Documented By: HUGH Labetalol HCl (Labetalol Hcl 100 Mg/20 Ml Vial) 10 mg IVPUSH Q6H [facility] Last Admin: 02/13/25 07:48 Dose: 10 mg Documented By: ALEXIA Latanoprost (Latanoprost 0.005 % Ophth Maddy 2.5 Ml Drops) 1 drop EYE-BOTH BEDTIME [facility] Last Admin: 02/12/25 21:39 Dose: 1 drop Documented By: HUGH Lorazepam (Lorazepam 2 Mg/Ml Vial) 0.25 mg IVPUSH BID [facility] Last Admin: 02/13/25 07:48 Dose: 0.25 mg Documented By: ALEXIA Lorazepam (Lorazepam 2 Mg/Ml Vial) 0.25 mg IVPUSH Q4H PRN PRN Reason: Anxiety Melatonin (Melatonin 3 Mg Tablet) 6 mg PO BEDTIME PRN PRN Reason: Insomnia Last Admin: 02/09/25 21:42 Dose: 6 mg Documented By: JAMEEL Howard-Ingred Medicated Throat [place] (Throat [place], Medicated 177 Ml Bottle) 1 spray MUCOUS MEM Q2H PRN PRN Reason: sore throat Ondansetron HCl (Ondansetron Hcl 4 Mg/2 Ml Vial) 4 mg IVPUSH QID PRN PRN Reason: Nausea Pharmacy Consult (Consult Rx Parenteral Nutrition Ordering) 1 each MISCELLANE DAILY PRN PRN Reason: Consult order Sertraline HCl (Sertraline Hcl 100 Mg Tablet) 100 mg PO DAILY [facility] Last Admin: 02/13/25 07:54 Dose: 100 mg Documented By: ALEXIA Sodium Chloride (0.9 % Sodium Chloride Flush 3 Ml Syringe) 3 ml IVFLUSH QSHIFT [facility] Last Admin: 02/13/25 07:55 Dose: Not Given Documented By: ALEXIA Non-Admin Reason: IV Running Timolol Maleate (Timolol Maleate 0.5 % Oph Maddy 5 Ml Drbtl) 1 drop EYE-BOTH DAILY [facility] Last Admin: 02/13/25 08:54 Dose: 1 drop Documented By: ALEXIA Labs 02/09/25 07:46 02/13/25 06:48 Labs: Laboratory Results - last 24 hr 02/13/25 06:48 Hold Purple Top SEE NOTE Anion Gap 13 Estim Creat Clear Calc 58.0 Estimated GFR > 60 Random Glucose 125 H Calcium 8.4 Phosphorus 3.5 Magnesium 2.0 Albumin 2.7 L Procedures Date of Service Date of Service: 02/13/25 Progress Note: A&P Assessment and plan (1) S/P colon resection: Status: Acute Assessment and Plan: Appears comfortable Admits to being depressed Good GI functions She has advanced disease Care therefore as per the hospitalist service Diet as tolerated Time Spent With Patient Time: Total time managing care of this patient today ____ minutes. Quality Stroke Does the patient have a stroke diagnosis?: No VTE Prior VTE?: No VTE Risk Level:: Surgical - moderate VTE Device Contraindication: N/A - Device Ordered VTE Drug Contraindication: Treatment Not Indicated
[2025-02-13] MEDS: Metoprolol Tartrate 25 MG TABLET PO ×2 (14:02→19:23)
--- NOTE | 2025-02-13 16:15 | PC.NURSE ---
VMT saw patients , aJvier Dhaliwal, yelling at patient through the camera. Ben came down to notify staff, when was confronted he became agitated and started to leave the unit. Security was called to intercept the in the main lobby
[2025-02-13] MEDS: 0.9 % Sodium Chloride Flush 3 ML SYRINGE IVFLUSH ×2 (16:22→22:49)
[2025-02-13] MEDS: cefTRIAXone sodium 1 GM VIAL IVPUSH (16:22)
[2025-02-13] MEDS: Latanoprost 0.005 % Ophth Sol 2.5 ML DROPS 1 DROP EYE-BOTH (19:25)
[2025-02-13] MEDS: Parenteral Nutrition 1,680 ML 70 ML IV (21:00)
[2025-02-14] VITALS (7 sets, daily range): BP systolic 128–149; BP diastolic 63–76; PULSE 70–85; RESP 16–18; TEMP 36.1–37.2; O2SAT 93–97
[2025-02-14 07:47] LABS: Albumin Level 2.9 g/dL (3.5-5.0); Anion Gap 14 (12-20); Blood Urea Nitrogen 10 mg/dL (9-16); Calcium 9.1 mg/dL (8.4-10.2); Carbon Dioxide 22 mmol/L (22-29); Chloride 103 mmol/L (96-108); Creatinine Clr Calc Pharmacy 53.4; Estimated Glomerular Filt Rate > 60; Glucose Random 113 mg/dL (60-115); Magnesium 1.8 mg/dL (1.6-2.6); Phosphorus 3.8 mg/dL (2.7-4.5); Potassium 4.5 mmol/L (3.3-5.1); Sodium 134 mmol/L (135-145)
[2025-02-14] MEDS: Thiamine HCL 100 MG in 0.9 % Sodium Chloride 100 ML 202 MG IV (08:10)
[2025-02-14] MEDS: LORazepam 2 MG/ML VIAL 0.25 MG IVPUSH ×3 (08:10→20:17)
[2025-02-14] MEDS: Metoprolol Tartrate 25 MG TABLET PO ×2 (08:11→20:18)
[2025-02-14] MEDS: 0.9 % Sodium Chloride Flush 3 ML SYRINGE IVFLUSH ×2 (08:11→20:28)
[2025-02-14] MEDS: Sertraline HCL 100 MG TABLET PO (08:11)
[2025-02-14] MEDS: timoloL maleate 0.5 % Oph Sol 5 ML DRBTL 1 DROP EYE-BOTH (08:12)
--- NOTE | 2025-02-14 09:33 | P.PNGS_ITS ---
Subjective Subjective Date of Service: 02/14/25 Interval history: States she is ?okay? Tolerating regular diet Has BMs and flatus Pain well controlled Physical Exam 2 Vital Signs: Vital Signs: Last Vital Signs Temp 97.6 F 02/14/25 08:00 Pulse 85 02/14/25 08:00 Resp 18 02/14/25 08:00 BP 141/68 H 02/14/25 08:00 Pulse Ox 97 02/14/25 08:00 O2 Del Method Room Air 02/14/25 08:00 O2 Flow Rate 2 02/10/25 07:42 BMI result Body Mass Index 22.1 Const: Other: Appears tired and depressed General: comfortable and no acute distress Resp: Effort & Inspection: normal respiratory effort Cardio: Rate: regular rate GI: Other: Incision clean and dry Palpation (GI): Soft to palpation, not firm, nontender and no guarding Objective Data Active Medications Benzocaine (Throat Lozenge, Medicated Lozenge) 1 lozenge MUCOUS MEM Q2H PRN PRN Reason: Sore Throat Ceftriaxone Sodium (Ceftriaxone Sodium 1 Gm Vial) 1 gm IVPUSH Q24H [facility] Last Admin: 02/13/25 16:22 Dose: 1 gm Documented By: ALVARO Thiamine HCl 100 mg/ Sodium (Chloride) 101 mls @ 202 mls/hr IV DAILY [facility] Last Infusion: 02/14/25 09:01 Dose: Infused Documented By: ALEXIA Folic Acid 1 mg/ Sodium (Chloride) 50.2 mls @ 100.4 mls/hr IV DAILY [facility] Last Infusion: 02/13/25 09:33 Dose: Infused Documented By: ALEXIA Nutrition (Parenteral) (Parenteral Nutrition) 1,680 mls @ 70 mls/hr IV .Q24H [facility]; Protocol Stop: 02/14/25 20:59 Last Admin: 02/13/25 21:00 Dose: 70 mls/hr Documented By: TARA Nutrition (Parenteral) (Parenteral Nutrition) 1,680 mls @ 70 mls/hr IV .Q24H [facility]; Protocol Stop: 02/15/25 20:59 Latanoprost (Latanoprost 0.005 % Ophth Maddy 2.5 Ml Drops) 1 drop EYE-BOTH BEDTIME [facility] Last Admin: 02/13/25 19:25 Dose: 1 drop Documented By: TARA Lorazepam (Lorazepam 2 Mg/Ml Vial) 0.25 mg IVPUSH BID [facility] Last Admin: 02/14/25 08:10 Dose: 0.25 mg Documented By: ALEXIA Lorazepam (Lorazepam 2 Mg/Ml Vial) 0.25 mg IVPUSH Q4H PRN PRN Reason: Anxiety Last Admin: 02/13/25 16:23 Dose: 0.25 mg Documented By: ALVARO Melatonin (Melatonin 3 Mg Tablet) 6 mg PO BEDTIME PRN PRN Reason: Insomnia Last Admin: 02/09/25 21:42 Dose: 6 mg Documented By: JAMEEL Metoprolol Tartrate (Metoprolol Tartrate 25 Mg Tablet) 25 mg PO BID [facility]; Protocol Last Admin: 02/14/25 08:11 Dose: 25 mg Documented By: ALEXIA Ondansetron HCl (Ondansetron Hcl 4 Mg/2 Ml Vial) 4 mg IVPUSH QID PRN PRN Reason: Nausea Pharmacy Consult (Consult Rx Parenteral Nutrition Ordering) 1 each MISCELLANE DAILY PRN PRN Reason: Consult order Sertraline HCl (Sertraline Hcl 100 Mg Tablet) 100 mg PO DAILY [facility] Last Admin: 02/14/25 08:11 Dose: 100 mg Documented By: ALEXIA Sodium Chloride (0.9 % Sodium Chloride Flush 3 Ml Syringe) 3 ml IVFLUSH QSHIFT [facility] Last Admin: 02/14/25 08:11 Dose: 3 ml Documented By: ALEXIA Timolol Maleate (Timolol Maleate 0.5 % Oph Maddy 5 Ml Drbtl) 1 drop EYE-BOTH DAILY [facility] Last Admin: 02/14/25 08:12 Dose: 1 drop Documented By: ALEXIA Labs 02/09/25 07:46 02/14/25 06:05 Labs: Laboratory Results - last 24 hr 02/14/25 02/14/25 06:02 06:05 Hold Purple Top SEE NOTE Anion Gap 14 Estim Creat Clear Calc 53.4 Estimated GFR > 60 Random Glucose 113 Calcium 9.1 D Phosphorus 3.8 Magnesium 1.8 Albumin 2.9 L Procedures Date of Service Date of Service: 02/14/25 Progress Note: A&P Assessment and plan (1) Carcinomatosis: Status: Acute Assessment and Plan: Status post right colon resection Good GI functions Appears tired and depressed I have requested for PT eval for DC planning I had a long discussion with her yesterday afternoon state that he was concerned that she was not need to be discharged He also stated that she has lost her voice - patient actually seems to have recovered her voice today was assured Oncology follow-up down the line Lytes okay Time Spent With Patient Time: Total time managing care of this patient today ____ minutes. Quality Stroke Does the patient have a stroke diagnosis?: No VTE Prior VTE?: No VTE Risk Level:: Surgical - moderate VTE Device Contraindication: N/A - Device Ordered VTE Drug Contraindication: Treatment Not Indicated
[2025-02-14] MEDS: Folic Acid 1 MG in 0.9 % Sodium Chloride 50 ML 100.4 MG IV (10:59)
[2025-02-14] MEDS: cefTRIAXone sodium 1 GM VIAL IVPUSH (15:49)
[2025-02-14] MEDS: Latanoprost 0.005 % Ophth Sol 2.5 ML DROPS 1 DROP EYE-BOTH (20:18)
[2025-02-14] MEDS: Parenteral Nutrition 1,680 ML 70 ML IV (20:28)
[2025-02-15 04:00] VITALS: BP 156/72; PULSE 75; RESP 18; TEMP 36.1; O2SAT 95
--- NOTE | 2025-02-15 06:58 | P.PNGS_ITS ---
Subjective Subjective Date of Service: 02/15/25 <Jim Núñez - Last Filed: 02/15/25 10:47> 02/15/25 <Odalys Coleman PA-C - Last Filed: 02/15/25 09:22> 02/15/25 <Jose Marino MD - Last Filed: 02/15/25 07:45> Interval history: No acute overnight events. Lucie feels tired, weak and anxious this morning. She does report mild RLQ pain that started last night. She rates it 4-5/10, nonradiating and dull in nature. Last BM this am. No n/v, chest pain. Tolerating liquid and solid diet. <Jim Núñez - Last Filed: 02/15/25 10:47> Physical Exam 2 Vital Signs: Vital Signs: Last Vital Signs Temp 97.0 F 02/15/25 04:00 Pulse 75 02/15/25 04:00 Resp 18 02/15/25 04:00 BP 156/72 H 02/15/25 04:00 Pulse Ox 95 02/15/25 04:00 O2 Del Method Room Air 02/15/25 04:00 O2 Flow Rate 2 02/10/25 07:42 BMI result Body Mass Index 22.1 <Jim Núñez - Last Filed: 02/15/25 10:47> Const: Other: tired-appearing anxious <Jim Núñez - Last Filed: 02/15/25 10:47> Orientation/consciousness: patient oriented x3 <Odalys Coleman PA-C - Last Filed: 02/15/25 09:22> Eyes: Other: EOMI no scleral icterus <Jim Núñez - Last Filed: 02/15/25 10:47> Resp: Effort & Inspection: normal respiratory effort <Odalys Coleman PA-C - Last Filed: 02/15/25 09:22> Cardio: Other: RRR, normal s1/s2 <Jim Núñez - Last Filed: 02/15/25 10:47> GI: Other: soft tender to palpation in RLQ with minimal guarding incision dry, healing well erythematous macule on R mid abdomen <Jim Núñez - Last Filed: 02/15/25 10:47> Other: soft tender to palpation in RLQ with minimal guarding incision dry, healing well erythema of inferior aspect of incision on right <Odalys Coleman PA-C - Last Filed: 02/15/25 09:22> Percussion: Yes normal to percussion <Odalys Coleman PA-C - Last Filed: 02/15/25 09:22> : Other: no CVA tenderness <Jim Núñez - Last Filed: 02/15/25 10:47> Neuro: General: patient oriented x3 and moves all extremities <Odalys Coleman PA-C - Last Filed: 02/15/25 09:22> Extrem: Other: no pedal edema moving all extremities spontaneously <Jim Núñez - Last Filed: 02/15/25 10:47> Objective Data Active Medications Benzocaine (Throat Lozenge, Medicated Lozenge) 1 lozenge MUCOUS MEM Q2H PRN PRN Reason: Sore Throat Ceftriaxone Sodium (Ceftriaxone Sodium 1 Gm Vial) 1 gm IVPUSH Q24H [facility] Last Admin: 02/14/25 15:49 Dose: 1 gm Documented By: ALEXIA Thiamine HCl 100 mg/ Sodium (Chloride) 101 mls @ 202 mls/hr IV DAILY [facility] Last Infusion: 02/14/25 09:01 Dose: Infused Documented By: ALEXIA Folic Acid 1 mg/ Sodium (Chloride) 50.2 mls @ 100.4 mls/hr IV DAILY [facility] Last Infusion: 02/14/25 11:38 Dose: Infused Documented By: ALEXIA Nutrition (Parenteral) (Parenteral Nutrition) 1,680 mls @ 70 mls/hr IV .Q24H [facility]; Protocol Stop: 02/15/25 20:59 Last Admin: 02/14/25 20:28 Dose: 70 mls/hr Documented By: TARA Latanoprost (Latanoprost 0.005 % Ophth Maddy 2.5 Ml Drops) 1 drop EYE-BOTH BEDTIME [facility] Last Admin: 02/14/25 20:18 Dose: 1 drop Documented By: TARA Lorazepam (Lorazepam 2 Mg/Ml Vial) 0.25 mg IVPUSH BID [facility] Last Admin: 02/14/25 20:17 Dose: 0.25 mg Documented By: TARA Lorazepam (Lorazepam 2 Mg/Ml Vial) 0.25 mg IVPUSH Q4H PRN PRN Reason: Anxiety Last Admin: 02/14/25 12:58 Dose: 0.25 mg Documented By: ALEXIA Melatonin (Melatonin 3 Mg Tablet) 6 mg PO BEDTIME PRN PRN Reason: Insomnia Last Admin: 02/09/25 21:42 Dose: 6 mg Documented By: JAMEEL Metoprolol Tartrate (Metoprolol Tartrate 25 Mg Tablet) 25 mg PO BID [facility]; Protocol Last Admin: 02/14/25 20:18 Dose: 25 mg Documented By: TARA Ondansetron HCl (Ondansetron Hcl 4 Mg/2 Ml Vial) 4 mg IVPUSH QID PRN PRN Reason: Nausea Pharmacy Consult (Consult Rx Parenteral Nutrition Ordering) 1 each MISCELLANE DAILY PRN PRN Reason: Consult order Sertraline HCl (Sertraline Hcl 100 Mg Tablet) 100 mg PO DAILY [facility] Last Admin: 02/14/25 08:11 Dose: 100 mg Documented By: ALEXIA Sodium Chloride (0.9 % Sodium Chloride Flush 3 Ml Syringe) 3 ml IVFLUSH QSHIFT [facility] Last Admin: 02/14/25 20:28 Dose: 3 ml Documented By: TARA Timolol Maleate (Timolol Maleate 0.5 % Oph Maddy 5 Ml Drbtl) 1 drop EYE-BOTH DAILY [facility] Last Admin: 02/14/25 08:12 Dose: 1 drop Documented By: ALEXIA <Jim Núñez - Last Filed: 02/15/25 10:47> Labs CBC & Chem 7: 02/09/25 07:46 02/15/25 05:41 <Jim Núñez - Last Filed: 02/15/25 10:47> Labs: Laboratory Results - last 24 hr 02/14/25 02/14/25 06:02 06:05 Hold Purple Top SEE NOTE Anion Gap 14 Estim Creat Clear Calc 53.4 Estimated GFR > 60 Random Glucose 113 Calcium 9.1 D Phosphorus 3.8 Magnesium 1.8 Albumin 2.9 L <Jim Núñez - Last Filed: 02/15/25 10:47> Procedures Date of Service Date of Service: 02/15/25 <Jim Núñez - Last Filed: 02/15/25 10:47> 02/15/25 <Odalys Coleman PA-C - Last Filed: 02/15/25 09:22> 02/15/25 <Jose Marino MD - Last Filed: 02/15/25 07:45> Progress Note: A&P Assessment and plan (1) S/P colon resection: Status: Acute <Jim Núñez - Last Filed: 02/15/25 10:47> (2) Carcinomatosis: Status: Acute <Jim Núñez - Last Filed: 02/15/25 10:47> Assessment and Plan: Lucie is POD 7 from R colonic resection. She endorses new RLQ pain. Exam benign. She is passing flatus and BM, without n/v. Most likely due to advanced disease. She is vitally stable. Lytes stable, with AM labs pending. Tolerating diet well without emesis. Ambulating without syncope. Arturo Núñez MS3 <Jim Núñez - Last Filed: 02/15/25 10:47> Lucie is POD 7 from R colonic resection. She endorses new RLQ pain. Exam benign. She is passing flatus and BM, without n/v. Most likely due to advanced disease. She is vitally stable. Lytes stable, with AM labs pending. Tolerating diet well without emesis. Ambulating without syncope. Arturo Núñez, MS3 Agree with above assessment and plan by Wilton MS3. She overall feels much improved, abd pain minimal, tolerating solid diet and now with good GI function. VSS. Abd soft, nondistended, incision with deep erythema of right inferior aspect. Will come back and probe that area of the incision, add oral doxycycline. Completed course of IV rocephin for UTI. Dc PPN, add ensure supplements. Patient expresses wish to be discharged to home but will do whatever is needed. Will have PT resee today and possible dc to home vs STR depending on recommendations. Patient comfortable with plan. Possible dc later today or tomorrow. <Odalys Coleman PA-C - Last Filed: 02/15/25 09:22> Lucie is POD 7 from R colonic resection. She endorses new RLQ pain. Exam benign. She is passing flatus and BM, without n/v. Most likely due to advanced disease. She is vitally stable. Lytes stable, with AM labs pending. Tolerating diet well without emesis. Ambulating without syncope. Arturo Núñez, MS3 Agree with above assessment and plan by Wilton MS3. She overall feels much improved, abd pain minimal, tolerating solid diet and now with good GI function. VSS. Abd soft, nondistended, incision with deep erythema of right inferior aspect. Will come back and probe that area of the iadd oral doxycycline. Completed course of IV rocephin for UTI. As noted above. PT consult. ECF? <Jose Marino MD - Last Filed: 02/15/25 07:45> Time Spent With Patient Time: Total time managing care of this patient today ____ minutes. <Jim Núñez - Last Filed: 02/15/25 10:47> Quality Stroke Does the patient have a stroke diagnosis?: No <Jim Núñez - Last Filed: 02/15/25 10:47> VTE Prior VTE?: No <Jim Núñez - Last Filed: 02/15/25 10:47> VTE Risk Level:: Surgical - moderate <Jim Núñez - Last Filed: 02/15/25 10:47> VTE Device Contraindication: N/A - Device Ordered <Jim Núñez - Last Filed: 02/15/25 10:47> VTE Drug Contraindication: Treatment Not Indicated <Jim Núñez - Last Filed: 02/15/25 10:47>
[2025-02-15 07:06] LABS: Albumin Level 3.2 g/dL (3.5-5.0); Anion Gap 16 (12-20); Blood Urea Nitrogen 16 mg/dL (9-16); Calcium 9.5 mg/dL (8.4-10.2); Carbon Dioxide 21 mmol/L (22-29); Chloride 103 mmol/L (96-108); Creatinine Clr Calc Pharmacy 49.5; Estimated Glomerular Filt Rate > 60; Glucose Random 112 mg/dL (60-115); Magnesium 1.9 mg/dL (1.6-2.6); Phosphorus 4.6 mg/dL (2.7-4.5); Potassium 4.6 mmol/L (3.3-5.1); Sodium 135 mmol/L (135-145)
[2025-02-15 07:41] VITALS: BP 127/76; PULSE 89; RESP 18; TEMP 36.6; O2SAT 96
[2025-02-15] MEDS: Amoxicillin/Potassium Clav 875 MG TABLET PO ×2 (07:58→21:27)
[2025-02-15] MEDS: Metoprolol Tartrate 25 MG TABLET PO ×2 (07:58→21:27)
[2025-02-15] MEDS: Doxycycline Monohydrate 100 MG CAPSULE PO ×2 (07:58→21:27)
[2025-02-15] MEDS: Sertraline HCL 100 MG TABLET PO (07:58)
[2025-02-15] MEDS: Thiamine HCL 100 MG in 0.9 % Sodium Chloride 100 ML 202 MG IV (07:58)
[2025-02-15] MEDS: 0.9 % Sodium Chloride Flush 3 ML SYRINGE IVFLUSH ×2 (07:59→14:57)
[2025-02-15] MEDS: LORazepam 2 MG/ML VIAL 0.25 MG IVPUSH (08:00)
[2025-02-15] MEDS: timoloL maleate 0.5 % Oph Sol 5 ML DRBTL 1 DROP EYE-BOTH (08:02)
--- NOTE | 2025-02-15 08:28 | PC.NURSE ---
Pt refuses sequentials ,Ashish Morrow notified,risks explained to patient,encouraged activity
[2025-02-15] MEDS: Folic Acid 1 MG in 0.9 % Sodium Chloride 50 ML 100.4 MG IV (08:50)
--- NOTE | 2025-02-15 09:10 | MHC.CLN ---
F/U PPN DISCONTINUED TODAY. DIET ADVANCED 02/13 TO REGULAR BLAND. ENSURE TID ADDED TO IMPROVE NUTRITIONAL INTAKE. SUPPLEMENT PROVIDES 1050 KCALS, 60 G PROTEIN. CONTINUE TO FOLLOW FOR PO INTAKE/DIET TOLERANCE.
--- NOTE | 2025-02-15 09:26 | PM.EVENT ---
Event Note Date of Service: 02/15/25 Event Note: Inferior aspect of incision with deep erythema. One subq suture removed and wound probed with qtip with evacuation of large amount of thin dark red drainage consistent with old hematoma with pocket that extended to left. Dry dressing placed. Patient tolerated procedure well. On oral doxycycline. Time Spent With Patient Time: Total time managing care of this patient today ____ minutes.
[2025-02-15] MEDS: oxyCODONE HCl Immed Release 5 MG TABLET PO (10:40)
[2025-02-15 11:40] VITALS: BP 118/67; PULSE 78; RESP 18; TEMP 36; O2SAT 96
[2025-02-15 13:48] VITALS: BP 118/67; PULSE 78; O2SAT 96
[2025-02-15 15:17] VITALS: BP 101/58; PULSE 82; RESP 20; TEMP 36.6; O2SAT 94
--- NOTE | 2025-02-15 15:42 | MHC.CM.PN ---
per surgeon pt not medically ready for dc plan rmains home
[2025-02-15] MEDS: LORazepam 0.5 MG TABLET PO ×2 (16:00→21:27)
--- NOTE | 2025-02-15 19:09 | PC.NURSE ---
OK to leave IV out per ALEX Morrow
[2025-02-15 19:44] VITALS: BP 120/83; PULSE 96; RESP 18; TEMP 36.4; O2SAT 96
[2025-02-15] MEDS: Latanoprost 0.005 % Ophth Sol 2.5 ML DROPS 1 DROP EYE-BOTH (21:27)
[2025-02-16] VITALS: BP 123/56; PULSE 75; RESP 18; TEMP 36.6; O2SAT 96
[2025-02-16 04:00] VITALS: BP 114/66; PULSE 76; RESP 18; TEMP 36.6; O2SAT 95
--- NOTE | 2025-02-16 06:43 | P.PNGS_ITS ---
Subjective Subjective Date of Service: 02/16/25 <Jim Núñez - Last Filed: 02/16/25 07:06> 02/16/25 <Odalys Coleman PA-C - Last Filed: 02/16/25 08:25> 02/16/25 <Jose Marino MD - Last Filed: 02/16/25 09:36> Interval history: No overnight events. She feels much better today. She reports her abdominal pain is the same as yesterday, though well-managed with pain medication. No n/v, chest pain, weakness. She is ambulating to restroom. Last bowel movement this AM. She has been tolerating liquids and solids. <Jim Núñez - Last Filed: 02/16/25 07:06> Physical Exam 2 Vital Signs: Vital Signs: Last Vital Signs Temp 97.9 F 02/16/25 04:00 Pulse 76 02/16/25 04:00 Resp 18 02/16/25 04:00 BP 114/66 02/16/25 04:00 Pulse Ox 95 02/16/25 04:00 O2 Del Method Room Air 02/16/25 04:00 O2 Flow Rate 2 02/10/25 07:42 BMI result Body Mass Index 22.1 <Jim Smit - Last Filed: 02/16/25 07:06> Const: General: comfortable, no acute distress, alert and tired appearing <Jim Wilton - Last Filed: 02/16/25 07:06> Orientation/consciousness: patient oriented x3 <Jim Wilton - Last Filed: 02/16/25 07:06> Eyes: Other: EOMI no scleral icterus <Jim Wilton - Last Filed: 02/16/25 07:06> Resp: Other: speaking in full sentences CTAB <Jim Wilton - Last Filed: 02/16/25 07:06> GI: Other: soft diffusely TTP clean and dry bandage in place <Jim Núñez - Last Filed: 02/16/25 07:06> Other: soft diffusely TTP clean and dry bandage in place- erythema of inferior aspect of incision slightly improved- portion of incision that was opened yesterday again probed with evacuation of serosanguineous drainage, wound opening gently packed with corner of fluff to allow for drainage <Odalys Coleman PA-C - Last Filed: 02/16/25 08:25> Skin: General skin exam: no rashes or lesions noted <Odalys Coleman PA-C - Last Filed: 02/16/25 08:25> Neuro: Other: moving all extremities spontaneously <Jim Núñez - Last Filed: 02/16/25 07:06> General: patient oriented x3 <Jim Núñez - Last Filed: 02/16/25 07:06> Objective Data Active Medications Amoxicillin/Clavulanate Potassium (Amoxicillin/Potassium Clav 875 Mg Tablet) 875 mg PO Q12H [facility] Last Admin: 02/15/25 21:27 Dose: 875 mg Documented By: GONZÁLEZ Benzocaine (Throat Lozenge, Medicated Lozenge) 1 lozenge MUCOUS MEM Q2H PRN PRN Reason: Sore Throat Folic Acid (Folic Acid 1 Mg Tablet) 1 mg PO DAILY [facility] Latanoprost (Latanoprost 0.005 % Ophth Maddy 2.5 Ml Drops) 1 drop EYE-BOTH BEDTIME [facility] Last Admin: 02/15/25 21:27 Dose: 1 drop Documented By: GONZÁLEZ Lorazepam (Lorazepam 0.5 Mg Tablet) 0.5 mg PO Q4H PRN PRN Reason: Anxiety Last Admin: 02/15/25 16:00 Dose: 0.5 mg Documented By: JUAN Lorazepam (Lorazepam 0.5 Mg Tablet) 0.5 mg PO BID [facility] Last Admin: 02/15/25 21:27 Dose: 0.5 mg Documented By: GONZÁLEZ Melatonin (Melatonin 3 Mg Tablet) 6 mg PO BEDTIME PRN PRN Reason: Insomnia Last Admin: 02/09/25 21:42 Dose: 6 mg Documented By: JAMEEL Metoprolol Tartrate (Metoprolol Tartrate 25 Mg Tablet) 25 mg PO BID [facility]; Protocol Last Admin: 02/15/25 21:27 Dose: 25 mg Documented By: GONZÁLEZ Ondansetron HCl (Ondansetron Odt 8 Mg Tab.Rapdis) 8 mg TRANSLINGU Q8H PRN PRN Reason: Nausea and Vomiting Oxycodone HCl (Oxycodone Hcl Immed Release 5 Mg Tablet) 5 mg PO Q4H PRN PRN Reason: Pain, Moderate(Pain Scale 4-6) Last Admin: 02/15/25 10:40 Dose: 5 mg Documented By: JUAN Sertraline HCl (Sertraline Hcl 100 Mg Tablet) 100 mg PO DAILY [facility] Last Admin: 02/15/25 07:58 Dose: 100 mg Documented By: JUAN Sodium Chloride (0.9 % Sodium Chloride Flush 3 Ml Syringe) 3 ml IVFLUSH QSHIFT [facility] Last Admin: 02/16/25 01:06 Dose: Not Given Documented By: GONZÁLEZ Non-Admin Reason: No Access Thiamine HCl (Thiamine Hcl 100 Mg Tablet) 100 mg PO DAILY [facility] Timolol Maleate (Timolol Maleate 0.5 % Oph Maddy 5 Ml Drbtl) 1 drop EYE-BOTH DAILY [facility] Last Admin: 02/15/25 08:02 Dose: 1 drop Documented By: JUAN <Jim Núñez - Last Filed: 02/16/25 07:06> Labs CBC & Chem 7: 02/09/25 07:46 02/16/25 06:49 <Jim Núñez - Last Filed: 02/16/25 07:06> Labs: Laboratory Results - last 24 hr 02/15/25 05:41 Anion Gap 16 Estim Creat Clear Calc 49.5 Estimated GFR > 60 Random Glucose 112 Calcium 9.5 Phosphorus 4.6 H Magnesium 1.9 Albumin 3.2 L <Jim Wilton - Last Filed: 02/16/25 07:06> Procedures Date of Service Date of Service: 02/16/25 <Jim Núñez - Last Filed: 02/16/25 07:06> 02/16/25 <Odalys Coleman PA-C - Last Filed: 02/16/25 08:25> 02/16/25 <Jose Marino MD - Last Filed: 02/16/25 09:36> Progress Note: A&P Assessment and plan (1) S/P colon resection: Status: Acute <Jim Núñez - Last Filed: 02/16/25 07:06> Assessment and Plan: Lucie is POD 8 from R colonic resection. She is overall improved since yesterday. She is vitally stable. AM labs pending. She is ambulating, tolerating PO intake. S/p R colon resection Wound probed yesterday with discharge of blood, consistent with hematoma, and was started on augmentin and doxycycline. pain well-managed with 5 mg PO oxycodone UTI S/p rocephin. No urinary symptoms LG Saleh <Jim Núñez - Last Filed: 02/16/25 07:06> Lucie is POD 8 from R colonic resection. She is overall improved since yesterday. She is vitally stable. AM labs pending. She is ambulating, tolerating PO intake. S/p R colon resection Wound probed yesterday with discharge of blood, consistent with hematoma, and was started on augmentin. pain well-managed with 5 mg PO oxycodone UTI S/p rocephin. No urinary symptoms LG Saleh Agree with above assessment and plan by Arturo Núñez MS-3. Patient overall doing fairly well now s/p right colon resection. Tolerating solid diet, good GI function. VSS. Abd benign with mild incisional tenderness. Incisional erythema of lower aspect improved and wound gently packed to allow continued drainage. Cont augmentin. Patient refused to participate with PT yesterday- asked to resee this morning to reeval for dispo plan as she is ready for discharge today and would really like to go home. Further plan dependent on PT suleman. Will discuss with case management for STR referral. <Odalys Coleman PA-C - Last Filed: 02/16/25 08:25> Lucie is POD 8 from R colonic resection. She is overall improved since yesterday. She is vitally stable. AM labs pending. She is ambulating, tolerating PO intake. S/p R colon resection Wound probed yesterday with discharge of blood, consistent with hematoma, and was started on augmentin. pain well-managed with 5 mg PO oxycodone UTI S/p rocephin. No urinary symptoms LG Saleh Agree with above assessment and plan by Arturo Núñez MS-3. Patient overall doing fairly well now s/p right colon resection. Tolerating solid diet, good GI function. VSS. Abd benign with mild incisional tenderness. Incisional erythema of lower aspect improved and wound gently packed to allow continued drainage. Cont augmentin. Patient refused to participate with PT yesterday- asked to resee this morning to reeval for dispo plan as she is ready for discharge today and would really like to go home. Further plan dependent on PT eval. Will discuss with case management for STR referral. As noted above <Jose Marino MD - Last Filed: 02/16/25 09:36> Time Spent With Patient Time: Total time managing care of this patient today ____ minutes. <Jim Núñez - Last Filed: 02/16/25 07:06> Quality Stroke Does the patient have a stroke diagnosis?: No <Jim Núñez - Last Filed: 02/16/25 07:06> VTE Prior VTE?: No <Jim Núñez - Last Filed: 02/16/25 07:06> VTE Risk Level:: Surgical - moderate <Jim Núñez - Last Filed: 02/16/25 07:06> VTE Device Contraindication: N/A - Device Ordered <Jim Núñez - Last Filed: 02/16/25 07:06> VTE Drug Contraindication: Treatment Not Indicated <Jim Núñez - Last Filed: 02/16/25 07:06>
[2025-02-16 07:17] LABS: Albumin Level 3.1 g/dL (3.5-5.0); Anion Gap 14 (12-20); Blood Urea Nitrogen 17 mg/dL (9-16); Calcium 9.1 mg/dL (8.4-10.2); Carbon Dioxide 19 mmol/L (22-29); Chloride 108 mmol/L (96-108); Estimated Glomerular Filt Rate > 60; Glucose Random 110 mg/dL (60-115); Magnesium 1.6 mg/dL (1.6-2.6); Phosphorus 3.5 mg/dL (2.7-4.5); Potassium 4.1 mmol/L (3.3-5.1); Sodium 137 mmol/L (135-145)
[2025-02-16 07:19] VITALS: BP 114/66; PULSE 76; O2SAT 95
[2025-02-16 07:21] VITALS: BP 120/60; PULSE 80; RESP 18; TEMP 36.6; O2SAT 93
[2025-02-16] MEDS: LORazepam 0.5 MG TABLET PO (07:54)
[2025-02-16] MEDS: Sertraline HCL 100 MG TABLET PO (07:54)
[2025-02-16] MEDS: Folic Acid 1 MG TABLET PO (07:54)
[2025-02-16] MEDS: Metoprolol Tartrate 25 MG TABLET PO (07:54)
[2025-02-16] MEDS: Thiamine HCL 100 MG TABLET PO (07:54)
[2025-02-16] MEDS: Amoxicillin/Potassium Clav 875 MG TABLET PO (07:54)
[2025-02-16] MEDS: oxyCODONE HCl Immed Release 5 MG TABLET PO (07:55)
[2025-02-16] MEDS: timoloL maleate 0.5 % Oph Sol 5 ML DRBTL 1 DROP EYE-BOTH (07:59)
--- NOTE | 2025-02-16 10:43 | PC.NURSE ---
Spoke with patient on the phone, has concerns about patient returning home today,RN communicated it with Marivel adult protective caseworker,Marivel will call patient
--- NOTE | 2025-02-16 11:03 | MHC.CM.PN ---
pt ls being dcd with vna reluctantly coming to pick pt up pt does not want rehab imm completed by pt and placed on chart
--- NOTE | 2025-02-16 13:42 | P.F2F_ITS ---
Service Date Service Date: 02/16/25 Encounter Date of encounter: 02/16/25 Reasons for Services Signs and symptoms assessed: abdominal pain, PO intake, incision appearance Reason for physical therapy: home safety and mobility and therapeutic exercises Homebound: Leaving the home is medically contraindicated at this time without the asist of a device and/or another person due th the listed conditions above and below. Reason homebound: weakness related to hospital stay and unable to drive Homebound supporting statement: Ms. Dhaliwal is s/p right colon resection. She is deconditioned and will need home PT for increasing strength. Certification: Based on the above findings, I certify that this patient is confined to the home and needs intermittent long-term care, physical therapy and/or speech therapy, or continues to need occupational therapy. The patient is under my care, and I have initiated the establishment of the plan of care. The patient will be followed by a physician who will periodically review the plan of care. Time Spent With Patient Time: Total time managing care of this patient today ____ minutes.
--- NOTE | 2025-02-16 13:44 | PM.DS ---
DS: Providers Provider Date of Service: 02/16/25 Date of admission: 02/07/25 13:44 Date of discharge: 02/16/25 Primary care physician: Bárbara Mehta MD Attending physician on admission: Jose Marino Consults: 02/10/25 03:40 Consult to Hospitalist Stat Comment: Consulting Provider: [facility] [place] Hospitalists Reason For Exam: hx ETOH wants to leave AMA.S/P colon resection /02/10/25 06:49 Addiction Medicine Provider Routine Consulting Provider: Addiction Covering Reason for consultation: alcool use disorder 02/12/25 09:56 Consult to Hematology / Oncology Routine Consulting Provider: [facility] [place] Oncology/Hematology Reason for consultation: metastatic invasive goblet cell adenocarcinoma Has provider been notified: No Attending physician on discharge: Jose Marino DS: Diagnosis Discharge Diagnosis (1) S/P colon resection: Status: Acute DS: Summary Hospital Course Hospital Course: HPI AT ADMISSION: Lucie Dhaliwal is a 74 year old female known to me from the 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 She was seen mid week last week for elective resection. She now presents with a several-day history of nausea, vomiting, abdominal pain and swelling. She is not sure when her last bowel movement was. This is a significant change from her evaluation earlier in the week for what was to have been elective right colectomy. Chart was reviewed and patient evaluated. CT scan demonstrating a significant small-bowel obstruction with a process in the right lower quadrant most probably her neoplasm. HOSPITAL COURSE: She was admitted to the surgical service for further treatment of the SBO, RLQ process concerning for neoplasm. It was recommended to proceed with exploratory laparotomy with possible bowel resection, ostomy. She was started on IVF, hypokalemia being replenished. NG tube in, Hayward was placed in the OR. On 02/08/25, exploratory laparotomy, ileocolectomy, appendectomy, omental biopsy, aspiration peritoneal fluid for cytology was performed by Dr. Marino without immediate complication. The patient tolerated the procedure well. She had a slow but uncomplicated recovery course. She had prolonged return of GI function which was expected due to the degree of small bowel dilatation. PPN was initiated. She had scant NGT output and it was removed later on POD #1. Hayward was removed on POD #1. UA was positive and she was started on rocephin for UTI and she completed this 5 day course. Hospitalist consult was obtained for management of her medical morbidities, agitation. Was found to have alcohol use disorder and was started on CIWA protocol, folic acid, thiamine. Addiction medicine was also consulted. She was hypertensive and was started on labetolol q6h while NPO and then metoprolol tartrate 25mg PO BID with improvement in her SBP. Her activity was slowly increased, PT was consulted for dispo planning, deconditioning. Her abd distention gradually improved and she began to pass flatus. She was advanced to clear liquids and then solids. She began to have bowel movements. Her oral intake improved and she was transitioned to oral supplements. On the day of discharge, she was tolerating a solid diet without nausea or vomiting. She had good GI function. She was ambulating. She was reassessed by PT who felt she was safe for dc to home with services and FWW. Her abdomen was benign with appropriate post op tenderness. She did still have some incisional erythema at the distal aspect which was opened, probed with old hematoma evacuated. She was started on PO augmentin for this. She felt ready for discharge and was discharged to home on 02/16/25 in stable condition with PT services for further convalescence. She is to follow up in the office in [address] Marino. She is to follow up with her PCP upon discharge regarding further HTN management. Pathology resulted and was positive for invasive goblet adenoCA. Oncology was consulted who will f/u with the patient as outpatient for further work up. Status at Discharge Functional status at discharge: uses cane/walker Overall status at discharge: patient is progressing back to baseline Time Attestation Discharge Coordination Time (in mins): 50 Quality: Safe Use of Opioids Does Pt have an Active Cancer Diagnosis on the Problem List?: Yes Opioid Measure Date for [facility] Report: 01/17/25 Opioid Measure Time for [facility] Report: 14:36 Quality: Stroke Does the patient have a stroke diagnosis?: No Physical Exam Vital Signs: Vital Signs: Last Vital Signs Temp 97.9 F 02/16/25 07:21 Pulse 80 02/16/25 07:21 Resp 18 02/16/25 07:21 BP 120/60 02/16/25 07:21 Pulse Ox 93 02/16/25 07:21 O2 Del Method Room Air 02/16/25 07:21 O2 Flow Rate 2 02/10/25 07:42 BMI result Body Mass Index 22.1 Const: General: comfortable, no acute distress and alert Orientation/consciousness: patient oriented x3 Resp: Effort & Inspection: normal respiratory effort GI: Other: incision with erythema of distal end, suture released with evacuation of serosanguineous drainage Inspection: No distended Palpation (GI): Soft to palpation, Tenderness to palpation present (GI) (mild incisional) and no guarding Skin: General skin exam: no rashes or lesions noted Neuro: General: patient oriented x3 and moves all extremities DS: Data Data Completed and Pending Completed studies during hospitalization [Text1]: 02/08/25 13:44 Cytology [PTH] Stat 02/08/25 14:34 Surgical [PTH] Routine A. Colon, appendix, and ileum, right ileocolectomy: -Invasive goblet cell adenocarcinoma, high grade, with mucin and signet ring cells. -Proximal and distal margins free of tumor. -Tumor is less than 1 mm to mesenteric margin. -Tumor perforates visceral peritoneum, invades cecal muscularis and mucosa (pT4b) and involves ileal serosa. -Four of seven lymph nodes positive for metastatic carcinoma (pN2). Comment: Additional tissue submitted for possible lymph nodes; report to follow. B. Omentum, omentectomy: -Numerous foci of invasive goblet cell adenocarcinoma, with mucin and signet ring cells (pM1b). Labs on day of discharge: Laboratory Results - last 24 hr 02/16/25 06:49 Sodium 137 Potassium 4.1 Chloride 108 Carbon Dioxide 19 L Anion Gap 14 BUN 17 H Creatinine 0.66 Estim Creat Clear Calc 51.0 Estimated GFR > 60 Random Glucose 110 Calcium 9.1 Phosphorus 3.5 Magnesium 1.6 Albumin 3.1 L Discharge Plan Discharge Anticipated Discharge Date/Time: 02/16/25 17:39 Patient Disposition: Home Health Service Discharge Diagnosis: SBO, carcinomatosis, s/p right colon resection Referrals: [facility] [Other] - 1 Week Bárbara Plummer MD [Primary Care Provider] - 1 Week Jose Marino MD [Physician] - 1 Week Discharge Medications: New lorazepam 0.5 mg Tablet 0.5 mg PO Q4H PRN (Reason: Anxiety) Qty: 60 0RF folic acid 1 mg Tablet 1 mg PO DAILY Qty: 60 0RF amoxicillin-pot clavulanate 875-125 mg Tablet 1 tab PO Q12H 4 Days Qty: 8 0RF metoprolol tartrate 25 mg Tablet 25 mg PO BID 60 Days Qty: 120 0RF Protocol: Hold for SBP/HR < HOLD for SBP < : 90 HOLD for HR < : 60 thiamine mononitrate (vit B1) 100 mg Tablet 100 mg PO DAILY Qty: 60 0RF oxycodone 5 mg tablet 5 mg PO Q4H PRN (Reason: pain (scale score 7-10)) Qty: 14 0RF Rx Instructions: Partial Fill upon patient request. docusate sodium [Colace] 100 mg capsule 100 mg PO BID PRN (Reason: constipation) Qty: 20 0RF (DME) Ultra-Light Rollator Misc See Rx Instructions .ROUTE .MEDSUPPLY Qty: 1 0RF Rx Instructions: As directed Continued sertraline 100 mg tablet 100 mg PO DAILY Qty: 90 8RF multivitamin Tablet 1 tab PO DAILY latanoprost 0.005 % drops 1 drp ophthalmic (eye) BEDTIME timolol maleate 0.5 % drops 1 drp ophthalmic (eye) DAILY Discharge Orders: Discharge Order (Routine); Ordered 02/16/25 Ordered By: Odalys Coleman Diet: Advance to usual diet Activity on Discharge: No heavy lifting Stand Alone Forms: Patient Portal Discharge page Print Language: Greenlandic Activity Restrictions/Additional Instructions: Apply an ice pack for short intervals (20 minutes on, followed by at least 20 minutes off). Do not apply heat. Do not use creams, lotions, or topical antibiotics. These can cause infection or allergic reaction. Ok to shower. No tube bath. You have steri strips (small white cloth strips) covering your incision- these will fall off ~1 week. The lower part of your incision was opened- keep covered while it is actively draining. Follow up in office with Dr. Marino in 1 week. ([phone]) Follow up with oncology. Follow up with your PCP regarding your blood pressure. No heavy lifting (>10lbs) or strenuous activity! Call Your Doctor If: -Your temperature exceeds 101.5? F -You experience excessive pain or swelling -You have an unexpected reaction to medication -You have excessive bleeding -You experience continued vomiting/nausea -Your incision begins to separate -Your incision begins to drain thick toro drainage Care Plan Goals: Resume daily activities following recovery period. Health Concerns: SBO carcinomatosis Plan of Treatment: Discharge to home with services for further convalescence and strengthening, front wheeled walker s/p right colon resection F/u with oncology F/u with Dr. Marino in office in 1 week Assessment: Improving, stable Discharge Date/Time: 02/16/25 11:38
--- NOTE | 2025-02-16 14:29 | MHC.CM.PN ---
pt went home with kieran go
--- NOTE | 2025-02-16 14:59 | W.MHC.F2F ---
Service Date Service Date: 02/16/25 Encounter Date of encounter: 02/16/25 Reasons for Services Signs and symptoms assessed: abdominal pain, oral intake, incision appearance Reason for group home: wound care and postoperative assessment and/or care Homebound: Leaving the home is medically contraindicated at this time without the asist of a device and/or another person due th the listed conditions above and below. Reason homebound: weakness related to hospital stay and unable to drive Homebound supporting statement: Ms. Dhaliwal is s/p right colon resection. She will need VNA services for post op care. She does have incisional erythema of distal aspect and draining seroma- open wound at distal aspect packed lightly with corner of fluff to keep open and allow drainage. Change daily and as needed. Certification: Based on the above findings, I certify that this patient is confined to the home and needs intermittent group home care, physical therapy and/or speech therapy, or continues to need occupational therapy. The patient is under my care, and I have initiated the establishment of the plan of care. The patient will be followed by a physician who will periodically review the plan of care. Time Spent With Patient Time: Total time managing care of this patient today ____ minutes.
== END 2025-02-16 11:38 | disposition home health service (06) | DRG 330 ==
LOC: HO.ED 13:42 → HO.EDOVER 13:45 → HO.S3 02-08 14:51
PROVIDERS: Emergency Medicine; Physician Assistant Medical; Physician Assistant Surgical; Admitting Provider Surgery; Emergency Provider Emergency Medicine; PCP Internal Medicine; Visit Provider Surgery
PROC: 0DTF0ZZ Resection of Right Large Intestine, Open Approach (ICD-10-PCS; CPT 49000; principal; 2025-02-08 13:00)
DX: C18.1 Malignant neoplasm of appendix (principal); C78.6 Secondary malignant neoplasm of retroperitoneum and peritoneum; R18.0 Malignant ascites; N39.0 Urinary tract infection, site not specified; F10.139 Alcohol abuse with withdrawal, unspecified; F32.A Depression, unspecified; F41.9 Anxiety disorder, unspecified; B96.20 Unspecified Escherichia coli [E. coli] as the cause of diseases classified elsewhere; F17.210 Nicotine dependence, cigarettes, uncomplicated; Z76.1 Encounter for health supervision and care of foundling; E87.6 Hypokalemia; G89.18 Other acute postprocedural pain; Z20.822 Contact with and (suspected) exposure to COVID-19; Z79.899 Other long term (current) drug therapy
CPT/HCPCS: 0241U; 36415; 71045; 74177; 80048; 80053; 81001; 82040; 83690; 83735; 84100; 84478; 85007; 85025; 85027; 87086; 87088; 87186; 88112; 88304; 88305; 88307; 88309; 88341; 88342; 97116; 97162; 99202; 99285; J0131; J0665; J0696; J0736; J1100; J1920; J2003; J2060; J2270; J2371; J2405; J2704; J3010; J3411; J3480; J7120; Q9967

== ENCOUNTER → 2025-02-07 12:15 | Outpatient (BNV) | payer MEDICARE, SELFPAY | PROVIDERS: Admitting Provider Surgery; Emergency Provider Emergency Medicine; PCP Internal Medicine; Visit Provider Radiology Diagnostic Radiology | DX: K80.21 Calculus of gallbladder without cholecystitis with obstruction (principal); R14.0 Abdominal distension (gaseous); Z46.59 Encounter for fitting and adjustment of other gastrointestinal appliance and device | CPT/HCPCS: 71045; 74177 ==

== ENCOUNTER → 2025-02-07 13:44 | Outpatient (BNV) | payer MEDICARE, SELFPAY | PROVIDERS: Admitting Provider Surgery; Emergency Provider Emergency Medicine; PCP Internal Medicine; Visit Provider Nurse Practitioner Psychiatric/Mental Health | DX: F10.90 Alcohol use, unspecified, uncomplicated (principal) | CPT/HCPCS: 99232 ==

== ENCOUNTER → 2025-02-07 13:44 | Outpatient (BNV) | payer MEDICARE, SELFPAY | PROVIDERS: Admitting Provider Surgery; Emergency Provider Emergency Medicine; PCP Internal Medicine; Visit Provider Surgery | DX: Z90.49 Acquired absence of other specified parts of digestive tract (principal); C80.0 Disseminated malignant neoplasm, unspecified; K56.609 Unspecified intestinal obstruction, unspecified as to partial versus complete obstruction | CPT/HCPCS: 99024; 99222 ==

== ENCOUNTER → 2025-02-07 13:44 | Outpatient (BNV) | payer MEDICARE, SELFPAY | PROVIDERS: Admitting Provider Surgery; Emergency Provider Emergency Medicine; PCP Internal Medicine; Visit Provider Internal Medicine | DX: C18.1 Malignant neoplasm of appendix (principal) | CPT/HCPCS: 99222 ==

== ENCOUNTER → 2025-02-07 13:44 | Outpatient (BNV) | payer MEDICARE, SELFPAY | PROVIDERS: Admitting Provider Surgery; Emergency Provider Emergency Medicine; PCP Internal Medicine; Visit Provider Student in an Organized Health Care Education/Training Program | DX: F10.90 Alcohol use, unspecified, uncomplicated (principal); K56.609 Unspecified intestinal obstruction, unspecified as to partial versus complete obstruction | CPT/HCPCS: 99233 ==

== ENCOUNTER 2025-02-23 13:25 | Outpatient (AMB) | payer MEDICARE, SELFPAY ==
--- NOTE | 2025-02-23 13:26 | MHC.OFFVIS ---
Intake Visit Reasons: S/P Appendiceal ca, SBO Intake Note: Patient here s/p exploratory laparotomy, ileocolectomy, appendectomy, omental biopsy, aspiration peritoneal fluid for cytology. Reports incision healing well. Patient c/o: None Peritoneal fluid bx: Positive adenocarcinoma. Allergies Penicillins [PENICILLINS] Allergy (Intermediate, Verified 02/23/25 13:27) RASH penicillin V Allergy (Unknown, Verified 02/23/25 13:27) rash clams [CLAMS] Adverse Reaction (Intermediate, Verified 02/23/25 13:27) NAUSEA HPI Comments Details: Patient presents with the for follow-up. She is tolerating her diet. He is having regular bowel habits. Her abdominal symptoms from preoperatively have completely resolved. No wound issues or complaints. Minimal incisional discomfort. Pathology was reviewed with the patient and her during her hospitalization. [facility] Medical History Memory loss Osteopenia Osteoarthritis of right hip Mild cognitive impairment Skin lesion Pure hypercholesterolemia Surgical History Hx of colonoscopy (~2015) History of wisdom tooth extraction History of rectal polypectomy Family History Father Heart attack Mother Ovarian cancer Maternal Grandmother Breast cancer Social History Household Members: Spouse Housing: House Are you a primary child care specialist to a significant other at home: No Do you presently have visiting nurse or other home services: No Alcohol intake: current Alcohol intake frequency: 0-2 drinks per day Alcohol type: beer and hard liquor Comment: telesitter placed Patient Tobacco Use Status: Current everyday Tobacco user Tobacco use type: Cigarette Cigarette Packs Per Day: 10 e-Cigarette/Vaping Use: Never Used Second Hand Smoke Exposure: No Substance Use Type: Marijuana service: No Current occupational status: retired Cognitive needs: No Hearing needs: No Vision needs: No Physical Exam GI Other: Abdomen is soft. Incision clean dry and intact. The most inferior part had a seroma drained her hospitalization and has healed uneventfully. Assessment & Plan Assessment & Plan (1) Cancer of appendix: Code(s): C18.1 - Malignant neoplasm of appendix Category: Surgical (2) Carcinomatosis: Code(s): C80.0 - Disseminated malignant neoplasm, unspecified Category: Surgical (3) S/P colon resection: Comment: exploratory laparotomy, ileocolectomy, appendectomy, omental biopsy, aspiration peritoneal fluid for cytology Code(s): Z90.49 - Acquired absence of other specified parts of digestive tract Category: Surgical Plan From a surgical perspective, patient was doing well. She has continued convalescence with increasing her activity level, nutritional supplements, and will see me as directed or p.r.n.. Patient and would like to go to [facility] for their oncologic care. They have history with this department in the past. Arrangements were made for this. 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
--- OUTSIDE RECORDS SUMMARY | 2025-02-23 16:20 | XMS_ITS ---
Author Organization [facility] Address [address] [place] [address] Care Team Providers Care Technician Name Role Phone Bárbara Plummer Primary Care Provider UnavailBiju Madsen Unavailable [phone] Allergies Allergen (clinical drug ingredient) Drug/Non Drug Allergy documented on EMR Reaction Allergy Type Onset Date Status Penicillin Unknown Drug Allergy Active Results Component Value Reference Range Notes Prothrombin Time INR Reviewed date:02/02/2025 09:24:03 AM Interpretation: Performing Lab:[facility], [address] [place] [id number] Notes/Report: Prothrombin Time 9.7 10.9-12.4 SEC INTERNATIONAL NORM RATIO 0.8 0.9-1.1 INTERNATIONAL NORMALIZED RATIO (INR) REFERENCE RANGES Reference Range For patients not on anticoagulant therapy: 0.9 - 1.1 INR ranges for oral anticoagulant therapy: For prevention and treatment of venous thrombosis and pulmonary embolism: 2.0 - 3.0 For acute myocardial infarction with aspirin therapy: 2.0 - 3.0 For acute myocardial infarction without aspirin therapy: 3.0 - 4.0 For patients with mechanical prosthetic heart valves: 2.5 - 3.5 REASON FOR VISIT Patient presents today for a colonoscopy follow up, PAIN Medications Medication SIG (Take, Route, Fr equency, Duration) Notes Start Date End Date Status Timolol Maleate 0.5 % Ophthalmic for 80 Active Multi Vitamin/Minerals Orally Active Latanoprost 0.005 % 1 drop into affected eye in the evening Ophthalmic Once a day Active Sertraline HCl 100 MG 1 tablet Orally Once a day Active Problems Problem Type SNOMED Code ICD Code Onset Dates Problem Status W/U Status Risk Notes Problem Malignant tumor of appendix (482998900) 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 Problem Diverticular disease of colon (677012013) Diverticulosis (K57.90) Active confirmed Vital Signs Temperature 97.5 degrees Fahrenheit 01/30/20 25 Blood pressure systolic 001 mm Hg 01/30/20 25 Blood pressure diastolic 01 mm Hg 025 Height 4 ft 11 in in 01/29/2025 Weight 110 lbs 01/29/2025 BMI 22.21 kg/m2 01/29/2025 Encounters Encounter Location Date Provider Diagnosis [facility] [address] [place] [address] 01/29/2025 Biju Mccormick Diverticulosis K57.9 0 and Appendix carcinoma C18.1 Assessments Encounter Date Diagnosis (ICD Code) Assessment Notes Treatment Notes Treatment Clinical Notes Section Notes 01/29/2025 Diverticulosis (ICD-10 - K57.90) 01/29/2025 Appendix carcinoma (ICD-10 - C18.1) Appt with Dr. Marino Plan Of Treatment Treatment Notes Assessment Notes Appendix carcinoma Appt with Dr. Marino Pending Test Test Name Order Date CHEM 7 PROFILE 01/29/2025 LIVER PROFILE 01/29/2025 CEA 01/29/2025 CBC w DIFF 01/29/2025 CT ABD & PELVIS WITH CONTRAST 01/29/2025 Next Appt Details Follow Up: 2024, Reaso n: Progress Notes * RADHA SCHMIDT ADOB: [birth year] (74 yo F)Acc No.[id number]:01/29/2025 Progress Notes Patient:?TAURUS SCHMIDTTCHEN A Provider:?Biju Mccormick MD :1950???Age:74 Y???Sex:Female D ate:01/29/2025 Address:[address] [place], [place] [id number] Pcp:Bárbara Mehta Subjective: * Chief Complaints: * ???1. Patient presents today for a colonoscopy follow up, PAIN. * Medical History:?Colonoscopy 2003 with small tubular adenomas removed; colonoscopy in 2009 was negative except for diverticulosis and internal hemorrhoids, Depression/anxiety, Denies UT,DM,CVA,Lung disease,renal disease, Hyperlipidemia, Glaucoma, Osteoporosis, Colonoscopy 02/2016 with 3 small tubular adenomas removed. * Surgical History:?[place] petr th extraction , Cauterization for epistaxis . * Family History:?Father: dece ased, diagnosed with Heart disease.?Mother: .? No colitis, celiac disease, nor colorectal cancer.? No family history of liver cancer. * Social History:?Tobacco Use:?Tobacco Control (Standard)?.?Drugs/Alcohol:?Alcohol Screen?Points: 4, Interpretation: Positive.?Miscellaneous:?Marital status: . Occupation: retired. ???Smoker / ppd. She has at least 2 drinks per day---she does not admit it, but her states that she is an alcoholic. * Medications:?Taking Sertrali ne HCl 100 MG Tablet 1 tablet Orally Once a day , Taking Latanoprost 0.005 % Solution 1 drop into affected eye in the evening Ophthalmic Once a day , Taking Multi Vitamin/Minerals Tablet Orally , Taking Timolol Maleate 0.5 % Solution Ophthalmic , Medication List reviewed and reconciled with the patient * Allergies:?Penicillin. Objective: * Vitals:?Wt: 110 lbs, Ht: 4 f t 11 in, BMI: 22.21 Index, BP: 001/01 mm Hg, Temp: 97.5, Wt-k.9. Assessment: * Assessment: 1.?Diverticulosis - K57.90 ( Primary)???2.?Appendix carcinoma - C18.1??? Plan: * Treatment: ? Value Reference Range ?Prothrombin Time 9.7 L 10.9-1 2.4 - SEC * ?INTERNATIONAL NORM RATIO 0.8 L 0.9-1.1 - ?Imaging: CT ABD & PELVIS WITH CONTRAST* Appendiceal cancer01/29/25 no pa req for CPT 22708 ref # [id number] for 02/08/25 at 2:30 pmarrival for 12:30 pm, [facility] 2[facility] FloorCocaitlynJossy 02/01/2025 09:41:10 AM EDT - pt notified by radiology and order mailed to pt as well * 2.?Appendix carcinoma?LAB: CHEM 7 PROFILE ?LAB: LIVER PROFILE ?LAB: CEA ?LAB: CBC w DIFF ?LAB: Prothrombin Time INR (Collection Date & Time - 02/01/2025 12:28 PM)* ? Value Reference Range ?Prothrombin Time 9.7 L 10.9-1 2.4 - SEC * ?INTERNATIONAL NORM RATIO 0.8 L 0.9-1.1 - ?Imaging: CT ABD & PELVIS WITH CONTRAST* Appendiceal cancer01/29/25 no pa req for CPT 07924 ref # [id number] for 02/08/25 at 2:30 pmarrival for 12:30 pm, fasting [facility] [place] [facility] 2nd FloorJossy Mejia 02/01/2025 09:41:10 AM EDT - pt notified by radiology and order mailed to pt as well * Notes: Appt with Dr. Marino?? * Preventive Medicine:? ??Urinary Incontinence:?Urinary Incontinence?Assessment:?Absent,?Plan of care documented:?No, reason not specified.? ??Screenings:?Fall Risk Screening?Fall Risk Assessment:?No falls in the past year,?Screening:?No falls in the past year,?Assessment:?Not performed, no reason specified,?Plan of Care:?Not documented, no reason specified.? * Follow Up:?2024 * * The named appointment provid er may or may not be the originator of this progress note, and it is not deemed complete until electronically signed by the appointment provider. Sign off status: Pending * Provider:?Biju Mccormick MD Date:? 025 Generated for Elliott gotti/Martín/eTdianasmitting on:?02/23/2025 04:19 PM EDT
--- OUTSIDE RECORDS SUMMARY | 2025-02-23 16:20 | XMS_ITS ---
Author Organization [facility] Address [address] [place] [address] Care Team Providers Care Clinic Specialist Name Role Phone Bárbara Plummer Primary Care Provider Unavailab Biju Tolliver Unavailable [phone] REASON FOR VISIT abd pain Encounters Encounter Location Date Provider Diagnosis [facility] [address] [place] [address] 02/05/2025 Biju Mccormick Plan Of Treatment No Information Progress Notes * RADHA SCHMIDT ADOB: [birth year] (74 yo F)Acc No.[id number]:02/05/2025 Patient:?RADHA SCHMIDT :1950???Age:74 Y???Sex:Female Address:[address] [place] [address] * true * Date:? Generated for lEliott gotti/Martín/eTransmitting on:?02/23/2025 04:20 PM EDT
--- OUTSIDE RECORDS SUMMARY | 2025-02-23 16:20 | XMS_ITS | Patient Health Record ---
Author Organization [facility] Address [address] [place] [address] Care Team Providers Care Title Specialist Name Role Phone Bárbara Plummer Primary Care Provider Biju Ba [phone] Allergies Allergen (clinical drug ingredient) Drug/Non Drug Allergy documented on EMR Reaction Allergy Type Onset Date Status Penicillin Unknown Drug Allergy Active Results Component Value Reference Range Notes Prothrombin Time INR Reviewed date:02/02/2025 09:24:03 AM Interpretation: Performing Lab:[facility], [address] [place] [phone] Notes/Report: Prothrombin Time 9.7 10.9-12.4 SEC INTERNATIONAL [...] mechanical prosthetic heart valves: 2.5 - 3.5 Pathology (Not yet reviewed by provider) Interpretation: Performing Lab:[facility], [address] [place] [phone] Notes/Report: ------ Name: Radha Schmidt Age/Sex: 74/F : 1950 Unit#: [id number] Attend Dr: Biju Mccormick MD Re01/27/25 Status : [facility] Location: [facility] [[email or web address]] Disch: ------ SPEC : [id number] RECD : 01/27/25-1199 STATUS: PASHA RIVERA NUM: [id number] MALU: 01/27/25-1058 [facility] DR: Biju Mccormick MD ENTERED: 01/27/25-10 24 SP TYPE: Surgical OTHR DR: Bárbara Plummer MD ORDERED: HE Stain/3, Gross Micro L4, Synaptophysin, Chromogranin, IHC, Add. immunos/8, CDX-2, CK7, CK20 COMMENTS: Block A se nt to [facility] for MMR Panel IHC's on 02/01/25. Addendum Addendum 1 Entered: 02/08/250848 Immunohistochemical results on tumor: - MLH1:?Preserved (i ntact of nuclear expression). - MSH2:?Preserved (i ntact nuclear expression). - MSH6:?Preserved (i ntact nuclear expression). - PMS2:?Preserved (i ntact of nuclear expression). ? NOTE:?Results are NE GATIVE for Mismatch repair defect/ Nina Syndrome-related tumor, however a small percentage o f this form of heritable cancer may not be identified by this technique. Addendum Signed (signature on file) Mary Ceja 02/08/25 0848 ------ Diagnosis Appendiceal orifice polyp, biopsy: -Invasive adenocarci noma, poorly-differentiated, with mucin and signet ring cells -Foci suspicious for lymphovascular invasion. Comment: Immunohistochemical studies to assess for a mismatch repair defect/Nina Syndrome-related tumor are pending; addendum to follow. Clinical History Pre-Op Dx: History polyps Post-Op Dx: Appendic eal orifice lesion, diverticulosis Microscopic Description Microscopic sections show irregular groups and cords malignant cells infiltrating normal colonic mucosa. The cells are rounded and swollen with abundant vesicular cytoplasm and eccentric hyperchrom atic nuclei with nucleoli. Extracellular mucin and focal irregular gland formation is a lso present. Immunostains show the tumor cells are positive for CK20, CDX2 and negative fo r CK7, chromogranin and synaptophysin. Controls stain appropriately. CONTINUED ON NEXT PAGE ------ Name: Radha Schmidt Age/Sex: 74/F : 1950 Unit#: [id number] Attend Dr: Biju Mccormick MD Re01/27/25 Status : [facility] Location: [facility] [[email or web address]] Disch: ------ SPEC : [id number] RECD : 01/27/25-1200 STATUS: PASHA RIVERA NUM: [id number] MALU: 01/27/25-[address]: Biju Mccormick MD ENTERED: 01/27/25-12 07 SP TYPE: Surgical OTHR DR: Bárbara Plummer MD ORDERED: HE Stain/3, Gross Micro L4, Synaptophysin, Chromogranin, IHC, Add. immunos/8, CDX-2, CK7, CK20 COMMENTS: Block A se nt to [facility] for MMR Panel IHC's on 02/01/25. Material Received Appendiceal orifice polyp Gross Description Received in formalin labeled ?appendiceal orifice polyp are 4 toro-pink irregular and rectangular tissue fragments ranging from 0.1-0.3 cm, submitted in toto in a cassette labeled A. CEDS This case was review ed intradepartmentally. Results given to Dr. Mccormick by secure text by Dr. Ceja on 01/28/2025 a t 1:55 pm. Special studies orde red and performed at [facility]: Immunostains for CK7, CK20, CDX2, synaptop hysin, and chromogranin on A1. Special studies orde red and performed at [facility]: Immunostains for MLH1, MSH2, MSH6 and PMS2 on A1. Copies To: Bárbara Plummer MD [facility] Primary Care,[place] [address] [place] [address] Biju Mccormick MD [facility] [address] [place] [address] ------ Signed (signature on file) Mary Ceja 02/01/25 1026 ------ END OF REPORT Complete Blood Count Auto Di ff Reviewed date:02/02/2025 12:49:40 AM Interpretation: Performing Lab:[facility], [address] [place] [phone] Notes/Report: White Blood Count 8.7 4.8-10.8 X10*3/uL Red Blood Count 4.31 4.20-5.50 X10*6/uL Hemoglobin 14.9 12.0-16.0 g/dl Hematocrit 42.9 37.0-47.0 % Mean Corpuscular Volume 99.5 80.0-98.0 fL Mean Corpuscular Hemoglobin 34.6 27.0-33.0 pg Mean Corpuscular HGB Conc 34.7 31.0-35.0 g/dl Red Cell Distribution Width 13.0 11.0-16.0 % Platelet Count 242 160-400 X10*3/uL Mean Platelet Volume 9.9 9.4-12.3 fL Neutrophils Percent Auto 73.7 45-73 % Imm Gran Pct Auto 0.5 0.0-0.4 % Lymphocytes Percent Auto 16.3 20-40 % Monocytes Percent Auto 8.5 2-11 % Eosinophils Percent Auto 0.5 0-4 % Basophils Percent Auto 0.5 0-2 % NRBC Pct Auto 0.0 0.0-0.2 /100WBC Neutrophils Absolute Auto 6.4 2.0-8.3 x10*3/uL Imm Gran Abs Auto 0.04 0.00-0.03 X10*3/uL Lymphocytes Absolute Auto 1.4 1.2-4.9 X10*3/uL Monocytes Absolute Auto 0.7 0.1-1.2 X10*3/uL Eosinophils Absolute Auto 0.0 0.0-0.4 X10*3/uL Basophils Absolute Auto 0.0 0.0-0.2 X10*3/uL NRBC Abs Auto 0.000 0.0-0.012 X10*3/uL Liver Panel Reviewed date:02/02/2025 12:50:31 AM Interpretation: Performing Lab:[facility], [address] [place] [phone] Notes/Report: Bilirubin Total 0.5 0.0-1.0 mg/dL Bilirubin Direct 0.1 0.0-0.5 mg/dL Aspartate Amino Transferase 25 5-31 U/L Alanine Aminotransferase 16 0-31 U/L Total Protein 8.0 6.5-8.0 g/dL Albumin Level 4.5 3.5-5.0 g/dL Alkaline Phosphatase 74 39-117 U/L Basic Metabolic Panel Reviewed date:02/02/2025 12:49:03 AM Interpretation: Performing Lab:[facility], [address] [place] [phone] Notes/Report: Sodium 142 135-145 mmol/L Potassium 3.9 3.3-5.1 mmol/L Chloride 103 96-108 mmol/L Carbon Dioxide 28 22-29 mmol/L Anion Gap 15 12-20 Blood Urea Nitrogen 11 9-16 mg/dL Creatinine 0.76 0.5-1.4 mg/dL Estimated Glomerular Filt Rate > 60 Chronic Kidney Disease: Estimated GFR < 60 mL/min/1.73m2 Severe Kidney Disease: Estimated GFR < 15 mL/min/1.73m2 Glucose Random 101 60-115 mg/dL Calcium 9.8 8.4-10.2 mg/dL Carcinoembryonic Antigen Reviewed date:02/02/2025 12:50:08 AM Interpretation: Performing Lab:[facility], [address] [place] [phone] Notes/Report: Carcinoembryonic Antigen 5.00 CEA Reference Range: 93.4% Non-Smokers = 0.0-3.0 ng/mL 95.6% Smokers = 0.0-5.0 ng/mL CEA Methodology: Turcios Alinity i Chemiluminescent Microparticle Immunoassay (CMIA) CEA testing can have significant value in monitoring of patients with diagnosed malignancies in whom changing concentrations of CEA are observed. Values obtained with different assay methods cannot be used interchangeably. Reason For Referral No Information Medications Medication SIG (Take, Route, Fr equency, Duration) Notes Start Date End Date Status Timolol Maleate 0.5 % Ophthalmic for 80 Active Multi Vitamin/Minerals Orally Active Latanoprost 0.005 % 1 drop into affected eye in the evening Ophthalmic Once a day Active Sertraline HCl 100 MG 1 tablet Orally Once a day Active Immunizations Vaccine Route Administration Date Status Comme nts Influenza Unknown 10/06/2024 Administered Problems Problem Type SNOMED Code ICD Code Onset Dates Problem Status W/U Status Risk Notes Problem 949980299 Encounter for screening for malignant neoplasm of colon (Z12.11) Active confirmed Problem 799385448 History of adenomatous polyp of colon (Z86.010) Active confirmed Problem Pre-procedure evaluation check (393066320) Encounter for other preprocedural examination (Z01.818) Active confirmed Problem 387824613 Irritable bowel syndrome with diarrhea (K58.0) Active confirmed Problem Screening for malignant neoplasm of rectum (046914246) Encounter for screening for malignant neoplasm of rectum (Z12.12) Active confirmed Problem Diverticular disease of colon (439094634) Diverticulosis (K57.90) Active confirmed Problem 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 Vital Signs Temperature 97.5 degrees Fahrenheit 01/29/2025 Blood pressure diastolic 01 mm Hg 01/29/2025 Height 4 ft 11 in in 01/29/2025 Blood pressure systolic 001 mm Hg 01/29/2025 Weight 110 lbs 01/29/2025 BMI 22.21 kg/m2 01/29/2025 Encounters Encounter Location Date Provider Diagnosis [facility] Outpatient [address] [place], [place] [phone] 01/27/2025 Biju Mccormick Colon cancer screeni ng Z12.11 ; Personal history of colonic polyps Z86.0100 ; Other specified diseases of appendix K38.8 ; Diverticulosis of large intestine without perforation or abscess without bleeding K57.30 and Other hemorrhoids K64.8 [facility] [address] [place] [phone] 01/29/2025 Biju Mccormick Diverticulosis K57.9 0 and Appendix carcinoma C18.1 [facility] [address] [place] [phone] 10/08/2024 Biju Mccormick History of adenomato us polyp of colon Z86.010 ; Encounter for other preprocedural examination Z01.818 and Encounter for screening for malignant neoplasm of colon Z12.11 [facility] [address] [place] [phone] 10/28/2024 Biju Mccormick [facility] [address] [place] [phone] 02/05/2025 Biju Mccormick Assessments Encounter Date Diagnosis (ICD Code) Assessment Notes Treatment Notes Treatment Clinical Notes Section Notes 01/27/2025 Colon cancer screening (ICD-10 - Z12.11) 01/27/2025 Personal history of colonic polyps (ICD-10 - Z86.0100) 01/29/2025 Diverticulosis (ICD-10 - K57.90) 01/29/2025 Appendix carcinoma (ICD-10 - C18.1) Appt with Dr. Marino 10/08/2024 History of adenomatous polyp of colon [...] to keep you advised of her progress. 01/27/2025 Other specified diseases of appendix (ICD-10 - K38.8) 10/08/2024 Encounter for screening for malignant neoplasm [...] to keep you advised of her progress. 01/27/2025 Diverticulosis of large intestine without perforation or abscess without bleeding (ICD-10 - K57.30) 01/27/2025 Other hemorrhoids (ICD-10 - K64.8) Plan Of Treatment Pending Test Test Name Order Date CHEM 7 PROFILE 01/29/2025 LIVER PROFILE 01/29/2025 CEA 01/29/2025 CBC w DIFF 01/29/2025 CELIAC PANEL #10 12/16/2015 CT ABD & PELVIS WITH CONTRAST 01/29/2025 Pathology 01/27/2025 Future Test Test Name Order Date COLONOSCOPY 12/16/2015 COLONOSCOPY 10/08/2024 Insurance Providers Payer Name Payer Address Payer Phone Subscriber Number Group Number Insured Name Patient Relationship to Insured Coverage Start Date Coverage End Date [facility] [address] [address] [place] [address] [id number] RADHA SCHMIDT Self - patient is the insured Medical (General) History Medical History History ICD Code Colonoscopy 2003 with small tubular adenomas removed; colonoscopy in 2009 was negative except for diverticulosis and internal hemorrhoids Depression/anxiety Denies IL,DM,CVA,Lung disease,renal dise ase Hyperlipidemia Glaucoma Osteoporosis Colonoscopy 02/2016 with 3 small tubular adenomas removed Surgical History Surgery Date(Month/Year) Cauterization for epistaxis [place] teeth extraction
--- OUTSIDE RECORDS SUMMARY | 2025-02-23 16:20 | XMS_ITS ---
Author Organization [facility] Address [address] [place] [address] Care Team Providers Care Kindergarten Classroom Teacher Name Role Phone Bárbara Plummer Primary Care Provider Unavailab Biju Tolliver Unavailable [phone] REASON FOR VISIT screening,hx polyps Encounters Encounter Location Date Provider Diagnosis [facility] Outpatient [address] [place] [phone] 01/27/2025 Biju Mccormick Colon cancer scree serenity [...] RADHA SCHMIDT ADOB: [birth year] (74 yo F)Acc No.[id number]:01/27/2025 COLON WITH MAC Patient:?RADHA SCHMIDT Provider:?Biju Mccormick MD :1950???Age:74 Y???Sex:Female D ate:01/27/2025 Address:[address] [place] [address], [place], [place] Pcp:Bárbara Mehta Subjective: * Chief Complaints: * ???1. Screening,hx polyps. * Medical History:? Objective: * Vitals:? Assessment: * Assessment: 1.?Colon cancer screening - Z12.11 (Primary)???2.?Personal history of colonic polyps - Z86.0100???3.?Other specified diseases of appendix - K38.8???4.?Diverticulosis of large intestine without perforation or abscess without bleeding - K57.30???5.?Other hemorrhoids - K64.8??? Plan: * Treatment: * Procedure Codes:?82638 COLON OSCOPY AND BIOPSY, Modifiers: PT , 0529F INTRVL 3+YRS PTS CLNSCP DOCD, 0528F RCMND FLW-UP 10 YRS DOCD * * The named appointment provid er may or may not be the originator of this progress note, and it is not deemed complete until electronically signed by the appointment provider. Sign off status: Pending * Provider:?Biju Mccormick MD Date:? 025 Generated for Elliott gotti/Martín/eTdianasmitting on:?02/23/2025 04:20 PM EDT
== END 2025-02-23 13:36 | disposition home or self-care (01) ==
LOC: HO.HGS 13:25
PROVIDERS: PCP Internal Medicine; Visit Provider Surgery
DX: C18.1 Malignant neoplasm of appendix (principal); C80.0 Disseminated malignant neoplasm, unspecified; Z90.49 Acquired absence of other specified parts of digestive tract
CPT/HCPCS: 99024

== ENCOUNTER → 2025-02-23 13:25 | Outpatient (BNVA) | payer MEDICARE, SELFPAY | PROVIDERS: PCP Internal Medicine; Visit Provider Surgery | DX: C18.1 Malignant neoplasm of appendix (principal); C80.0 Disseminated malignant neoplasm, unspecified; Z90.49 Acquired absence of other specified parts of digestive tract | CPT/HCPCS: 99212 ==

== ENCOUNTER 2025-02-26 10:19 | Outpatient (AMB) | payer MEDICARE, SELFPAY ==
--- NOTE | 2025-02-26 10:25 | MHC.PC.OV ---
Vital Signs 02/26/25 10:27 Height 4 ft 11 in Weight 109 lb 2 oz BMI 22.0 BP 120/74 Blood Pressure Location Lt brachial Position Sitting Pulse 77 Pulse Source Pulse Oximeter Temp 97.3 F Temp Source Temporal Artery Scan Pulse Oximetry (%) 94 Oxygen Delivery Method Room Air Intake Visit Reasons: TCM [facility] SBO 02/16 Intake Note: Patient is here for hospital discharge and TCM follow up. Patient was discharged from [facility] oN 02/16/25. Assistant Operations Manager Required: No Contract Serviceman: Present Accompanied by: Spouse Allergies Penicillins [PENICILLINS] Allergy (Intermediate, Verified 02/26/25 10:27) RASH penicillin V Allergy (Unknown, Verified 02/26/25 10:27) rash clams [CLAMS] Adverse Reaction (Intermediate, Verified 02/26/25 10:27) NAUSEA Tobacco use date assessed: 02/26/25 Fall risk assessment: No Falls in past year Last assessed Fall Risk: 02/26/25 Dental Screening Dental Screen Date: 02/26/25 Did you have a dental visit in the last 12 months?: Yes Did you have a dental problem in the last 6 months where you did not have access to dental care?: No Was dental information given to patient?: Patient has dentist HPI TCM TCM Information Date of Discharge 02/16/25 Discharged From [facility] Interactive Contact Date (Reference documentation from this date) 02/17/25 HPI Comments History of Present Illness Details 74 y/o Female Patient who presents to the clinic today for TCM. Pt was admitted to [facility] on 02/07 - 02/16 for SBO and Alcohol Withdrawal. S/p On 02/08/25, exploratory laparotomy, ileocolectomy, appendectomy, omental biopsy, aspiration peritoneal fluid for cytology was performed. Was found to have alcohol use disorder and was started on CIWA protocol folic acid, and thiamine at the Hospital. 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 She wants to follow up with [facility], Pt waiting on Appointment. She followed with General surgery 02/23 and scheduled for f/u on 03/09. Counselled on her Alcohol Abuse - declined assistance with Quitting today. States that her Alcohol consumption is under control and she has been cutting down. Reports drinking Beers and Vodka Daily. [facility] Medical History (Updated 02/24/25 @ 00:01 by Background Daemon) Memory loss Osteopenia Osteoarthritis of right hip Mild cognitive impairment Skin lesion Pure hypercholesterolemia Surgical History (Updated 02/26/25 @ 12:03 by Jasmyne Caldera NP) S/P small bowel resection History of partial colectomy History of appendectomy Hx of colonoscopy (~2016) History of wisdom tooth extraction History of rectal polypectomy Family History Father Heart attack Mother Ovarian cancer Maternal Grandmother Breast cancer Social History Household Members: Spouse Housing: House Are you a primary medicare interviewer to a significant other at home: No Do you presently have visiting nurse or other home services: No Alcohol intake: current Alcohol intake frequency: 0-2 drinks per day Alcohol type: beer and hard liquor Comment: telesitter placed Patient Tobacco Use Status: Current everyday Tobacco user Tobacco use type: Cigarette Cigarette Packs Per Day: 0.5 Cigarettes Per Day: 10 e-Cigarette/Vaping Use: Never Used Second Hand Smoke Exposure: Yes Substance Use Type: Marijuana service: No Current occupational status: retired Cognitive needs: No Hearing needs: No Vision needs: Yes (Reading glasses) Questionnaire PHQ-9 Over the last 2 weeks, how often have you been bothered by any of the following problems? 1. Little interest or pleasure in doing things: not at all 2. Feeling down, depressed, or hopeless: not at all 3. Trouble falling or staying asleep, or sleeping too much: not at all 4. Feeling tired or having little energy: not at all 5. Poor appetite or overeating: not at all 6. Feeling bad about yourself - or that you are a failure or have let yourself or your family down: not at all 7. Trouble concentrating on things, such as reading the newspaper or watching television: not at all 8. Moving or speaking so slowly that other people could have noticed. Or the opposite - being so fidgety or restless that you have been moving around a lot more than usual: not at all 9. Thoughts that you would be better off or of hurting yourself in some way: not at all Total score: 0 Depression Screening Interpretation: Negative Depression Screening Done: Yes Source: Developed by Drs. Biju Cueva, Lianet Robertson, Torey Jenkins and colleagues, with an educational damian from [employer]. Thrive Questionnaire Date Thrive assessed: 02/08/25 AUDIT C Alcohol Use Questionnaire (AUDIT-C) 1. How often do you have a drink containing alcohol?: 2-4 times a month 2. How many drinks containing alcohol do you have on a typical day when you are drinking?: 1 or 2 Total Score: 2 MAREK-7 AMB Questionnaire MAREK-7 Date MAREK - 7 assessed: 02/26/25 Feeling nervous, anxious, or on edge: 0 = Not at all Not being able to stop or control worryin = Not at all Worrying too much about different things: 0 = Not at all Trouble relaxin = Not at all Being so restless that it is hard to sit still: 0 = Not at all Becoming easily annoyed or irritable: 0 = Not at all Feeling afraid as if something awful might happen: 0 = Not at all Total MAREK-7 score (0-4 normal; 5-9 mild; 10-14 moderate; 15-21 severe): 0 Source: Developed by Drs. Biju Cueva, Lianet Robertson, Torey Jenkins and colleagues, with an educational damian from [employer]. Review of Systems Const All systems reviewed & are unremarkable except as noted in HPI and below Physical exam (Primary Care) Vital Signs: Last Vital Signs Temp 97.3 F 02/26/25 10:27 Pulse 77 02/26/25 10:27 BP 120/74 02/26/25 10:27 Pulse Ox 94 02/26/25 10:27 Oxygen Delivery Method Room Air 02/26/25 10:27 BMI result Body Mass Index 22.0 Tobacco/Smoking Status: Tobacco use Status Tobacco use date assessed 02/26/25 02/26/25 10:32 Patient Tobacco Use Status Current everyday Tobacco 02/26/25 10:32 Tobacco use type Cigarette 02/26/25 10:32 e-Cigarette/Vaping Use Never Used 02/26/25 10:32 PHQ-9: PHQ-9 Score PHQ-9: Total score 0 02/26/25 10:50 Depression Screening Interpretation: Negative Thrive Assessment: Date of Thrive Assessment Date Thrive assessed 02/08/25 02/26/25 10:32 Const General: no acute distress Nutritional Appearance: thin Orientation/consciousness: patient oriented x3 Resp Effort & Inspection: normal respiratory effort and able to speak in complete sentences Auscultation: clear to auscultation bilaterally Cardio Rhythm: regular rhythm Heart sounds: S1 normal heart sound present and S2 normal heart sound present GI Other: Surgical Incisions clean and Dry Palpation (GI): Soft to palpation, not firm, nontender, no guarding, not rigid and No hepatosplenomegaly present Auscultation: normal bowel sounds General: Yes no CVA tenderness Back/Spine/Pelvis Back: no CVA tenderness Neuro General: patient oriented x3, gait normal and moves all extremities Psych Speech and movement: Normal speech and movement present Coding Level of Care Code TCM Mod MDM <= 7 Days Diagnoses Cancer 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 (2) Alcohol use disorder: Code(s): F10.90 - Alcohol use, unspecified, uncomplicated Category: Medical Plan: Counselled on Alcohol abuse and Offered Assistance. Pt declined at this time. (3) S/P small bowel resection: Code(s): Z90.49 - Acquired absence of other specified parts of digestive tract Category: Surgical Plan: S/P Colon resection with General surgery. Managed and followed by General Surgery. Stable, no concerns.
[2025-02-26 10:27] VITALS: BP 120/74; PULSE 77; TEMP 36.3; O2SAT 94; BMI 22.0
--- OUTSIDE RECORDS SUMMARY | 2025-02-26 11:07 | XMS_ITS ---
Author Organization [facility] Address [address] [place] [address] Care Team Providers Care Records Management Coordinator Name Role Phone Bárbara Plummer Primary Care Provider Unavailab Biju Tolliver Unavailable [phone] REASON FOR VISIT screening,hx polyps Encounters Encounter Location Date Provider Diagnosis [facility] Outpatient [address] [place] [phone] 01/27/2025 Biju Mccormick Colon cancer scree serenity [...] RADHA SCHMIDT ADOB: [birth year] (74 yo F)Acc No.[id number]:01/27/2025 COLON WITH MAC Patient:?RADHA SCHMIDT Provider:?Biju Mccormick MD :1950???Age:74 Y???Sex:Female D ate:01/27/2025 Address:[address] [place] [address], [place], [place] Pcp:Bárbara Mehta Subjective: * Chief Complaints: * ???1. Screening,hx polyps. * Medical History:? Objective: * Vitals:? Assessment: * Assessment: 1.?Colon cancer screening - Z12.11 (Primary)???2.?Personal history of colonic polyps - Z86.0100???3.?Other specified diseases of appendix - K38.8???4.?Diverticulosis of large intestine without perforation or abscess without bleeding - K57.30???5.?Other hemorrhoids - K64.8??? Plan: * Treatment: * Procedure Codes:?20342 COLON OSCOPY AND BIOPSY, Modifiers: PT , [...] MD Date:? 025 Generated for Elliott gotti/Martín/eTdianasmitting on:?02/26/2025 11:07 AM EDT
--- OUTSIDE RECORDS SUMMARY | 2025-02-26 11:07 | XMS_ITS ---
Author Organization [facility] Address [address] [place] [address] Care Team Providers Care Spout Worker Name Role Phone Bárbara Plummer Primary Care Provider UnavailBiju Madsen Unavailable [phone] Allergies Allergen (clinical drug ingredient) Drug/Non Drug Allergy documented on EMR Reaction Allergy Type Onset Date Status Penicillin Unknown Drug Allergy Active Results Component Value Reference Range Notes Prothrombin Time INR Reviewed date:02/02/2025 09:24:03 AM Interpretation: Performing Lab:[facility], [address] [place] [phone] Notes/Report: Prothrombin Time 9.7 10.9-12.4 SEC INTERNATIONAL [...] Risk Notes Problem 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 Problem Diverticular disease of colon (950901114) Diverticulosis (K57.90) Active confirmed Vital Signs Temperature 97.5 degrees Fahrenheit 01/30/20 25 Blood pressure systolic 001 mm Hg 01/30/20 25 Blood pressure diastolic 01 mm Hg 025 Height 4 ft 11 in in 01/29/2025 Weight 110 lbs 01/29/2025 BMI 22.21 kg/m2 01/29/2025 Encounters Encounter Location Date Provider Diagnosis [facility] [address] [place] [address] 01/29/2025 Biju Mccormick Diverticulosis K57.9 0 and [...] 2024, Reaso n: Progress Notes * RADHA SCMHIDT ADOB: [birth year] (74 yo F)Acc No.[id number]:01/29/2025 Progress Notes Patient:?TAURUS SCHMIDTTCHEN A Provider:?Biju Mccormick MD :1950???Age:74 Y???Sex:Female D ate:01/29/2025 Address:[address] [place], [place] [id number] Pcp:Bárbara Mehta Subjective: * Chief Complaints: * ???1. Patient presents today for a colonoscopy follow up, PAIN. * Medical History:?Colonoscopy 2003 with small tubular adenomas removed; colonoscopy in 2009 was negative except for diverticulosis and internal hemorrhoids, Depression/anxiety, Denies [place],DM,CVA,Lung disease,renal disease, Hyperlipidemia, Glaucoma, Osteoporosis, Colonoscopy 02/2016 with 3 small tubular adenomas removed. * Surgical History:?Crandall petr th extraction , Cauterization for epistaxis [...] Appendiceal cancer01/29/25 no pa req for CPT 69829 ref # [id number] for 02/08/25 at 2:30 pmarrival for 12:30 pm, [facility] [place] [facility] 2nd FloorCocaitlynJossy 02/01/2025 09:41:10 AM EDT [...] Appendiceal cancer01/29/25 no pa req for CPT 42822 ref # 2106Sched for 02/08/25 at 2:30 pmarrival for 12:30 pm, [facility] [place] [facility] 2nd FloorJossy Mejia 02/01/2025 09:41:10 AM [...]
--- OUTSIDE RECORDS SUMMARY | 2025-02-26 11:08 | XMS_ITS ---
Author Organization [facility] Address [address] [place] [address] Care Team Providers Care Dam Worker Name Role Phone Bárbara Plummer Primary Care Provider Unavailab Biju Tolliver Unavailable [phone] REASON FOR VISIT abd pain Encounters Encounter Location Date Provider Diagnosis [facility] [address] [place] [address] 02/05/2025 Biju Mccormick Plan Of Treatment No Information Progress Notes * RADHA SCHMIDT ADOB: [birth year] (74 yo F)Acc No.[id number]:02/05/2025 Patient:?RADHA SHCMIDT :1950???Age:74 Y???Sex:Female Address:[address] [place] [address] * true * Date:? Generated for Elliott gotti/Martín/eTransmitting on:?02/26/2025 11:07 AM EDT
--- OUTSIDE RECORDS SUMMARY | 2025-02-26 11:08 | XMS_ITS | Patient Health Record ---
Author Organization [facility] Address [address] [place] [address] Care Team Providers Care Adult School Counselor Name Role Phone Bárbara Plummer Primary Care Provider Biju Ba [phone] Allergies Allergen (clinical drug ingredient) Drug/Non Drug Allergy documented on EMR Reaction Allergy Type Onset Date Status Penicillin Unknown Drug Allergy Active Results Component Value Reference Range Notes Prothrombin Time INR Reviewed date:02/02/2025 09:24:03 AM Interpretation: Performing Lab:[facility], [address] [place] [phone] Notes/Report: Prothrombin Time 9.7 10.9-12.4 SEC INTERNATIONAL [...] (Not yet reviewed by provider) Interpretation: Performing Lab:[facility], [address] [place] [phone] Notes/Report: ------ Name: Radha Schmidt Age/Sex: 74/F : 1950 Unit#: [id number] Attend Dr: Biju Mccormick MD Re01/27/25 Status : [facility] Location: [facility] Disch: ------ SPEC : [id number] RECD : 01/27/25-1199 STATUS: PASHA RIVERA NUM: [id number] MALU: 01/27/25-1058 [facility] DR: Biju Mccormick MD ENTERED: 01/27/25-10 24 [...] Radha Schmidt Age/Sex: 74/F : 1950 Unit#: [id number] Attend Dr: Biju Mccormick MD Re01/27/25 Status : [facility] Location: [facility] Disch: ------ SPEC : [id number] RECD : 01/27/25-1200 STATUS: PASHA RIVERA NUM: [id number] MALU: 01/27/25-[address]: Biju Mccormick MD [...] Special studies orde red and performed at [facility]: Immunostains for CK7, CK20, CDX2, synaptop hysin, and chromogranin on A1. Special studies orde red and performed at [facility]: Immunostains for MLH1, MSH2, MSH6 and PMS2 on A1. Copies To: Bárbara Plummer MD [facility] Care,[place] [address] [place] [address] Biju Mccormick MD [facility] [address] [place] [address] ------ Signed (signature on file) Mary Ceja 02/01/25 1026 ------ END OF REPORT Complete Blood Count Auto Di ff Reviewed date:02/02/2025 12:49:40 AM Interpretation: Performing Lab:[facility], [address] [place] [phone] Notes/Report: White Blood Count 8.7 4.8-10.8 X10*3/uL [...] Panel Reviewed date:02/02/2025 12:50:31 AM Interpretation: Performing Lab:[facility], [address] [place] [phone] Notes/Report: Bilirubin Total 0.5 0.0-1.0 mg/dL Bilirubin Direct 0.1 0.0-0.5 mg/dL Aspartate Amino Transferase 25 5-31 U/L Alanine Aminotransferase 16 0-31 U/L Total Protein 8.0 6.5-8.0 g/dL Albumin Level 4.5 3.5-5.0 g/dL Alkaline Phosphatase 74 39-117 U/L Basic Metabolic Panel Reviewed date:02/02/2025 12:49:03 AM Interpretation: Performing Lab:[facility], [address] [place] [phone] Notes/Report: Sodium 142 135-145 mmol/L Potassium 3.9 [...] Antigen Reviewed date:02/02/2025 12:50:08 AM Interpretation: Performing Lab:[facility], [address] [place] [phone] Notes/Report: Carcinoembryonic Antigen 5.00 CEA Reference Range: [...] Problem Status W/U Status Risk Notes Problem 761833856 Encounter for screening for malignant neoplasm of colon (Z12.11) Active confirmed Problem 177447210 History of adenomatous polyp of colon (Z86.010) Active confirmed Problem Pre-procedure evaluation check (920096950) Encounter for other preprocedural examination (Z01.818) Active confirmed Problem 244597988 Irritable bowel syndrome with diarrhea (K58.0) Active confirmed Problem Screening for malignant neoplasm of rectum (521838912) Encounter for screening for malignant neoplasm of rectum (Z12.12) Active confirmed Problem Diverticular disease of colon (102594034) Diverticulosis (K57.90) Active confirmed Problem Malignant tumor of appendix (376520128) 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 Vital Signs Temperature 97.5 degrees Fahrenheit 01/29/2025 Blood pressure diastolic 01 mm Hg 01/29/2025 Height 4 ft 11 in in 01/29/2025 Blood pressure systolic 001 mm Hg 01/29/2025 Weight 110 lbs 01/29/2025 BMI 22.21 kg/m2 01/29/2025 Encounters Encounter Location Date Provider Diagnosis [facility] Out[facility] [address] [place], [place] [phone] 01/27/2025 Biju Mccormick Colon cancer screeni ng Z12.11 ; Personal history of colonic polyps Z86.0100 ; Other specified diseases of appendix K38.8 ; Diverticulosis of large intestine without perforation or abscess without bleeding K57.30 and Other hemorrhoids K64.8 [facility] [address] [place] [address] 01/29/2025 Biju Mccormick Diverticulosis K57.9 0 and Appendix carcinoma C18.1 [facility] [address] [place] [address] 10/08/2024 Biju Mccormick History of adenomato us polyp of colon Z86.010 ; Encounter for other preprocedural examination Z01.818 and Encounter for screening for malignant neoplasm of colon Z12.11 [facility] [address] [place] [address] 10/28/2024 Biju Mccormick [facility] [address] [place] [address] 02/05/2025 Biju Mccormick Assessments Encounter Date Diagnosis [...] Insured Coverage Start Date Coverage End Date [facility] [address] [address] [place] [address] [id number] RADHA SCHMIDT Self - patient is the insured Medical (General) History Medical History History ICD Code Colonoscopy 2003 with small tubular adenomas removed; colonoscopy in 2009 was negative except for diverticulosis and internal hemorrhoids Depression/anxiety Denies [place],DM,CVA,Lung disease,renal dise ase Hyperlipidemia Glaucoma Osteoporosis Colonoscopy 02/2016 with 3 small tubular adenomas removed Surgical History Surgery Date(Month/Year) Cauterization for epistaxis Cavendish teeth extraction
== END 2025-02-26 11:01 | disposition home or self-care (01) ==
LOC: HO.HMCH 10:20
PROVIDERS: PCP Internal Medicine; Visit Provider Nurse Practitioner Family
DX: C18.1 Malignant neoplasm of appendix (principal); F10.90 Alcohol use, unspecified, uncomplicated; Z90.49 Acquired absence of other specified parts of digestive tract

== ENCOUNTER → 2025-02-26 10:19 | Outpatient (BNVA) | payer MEDICARE, SELFPAY | PROVIDERS: PCP Internal Medicine; Visit Provider Nurse Practitioner Family | DX: C18.1 Malignant neoplasm of appendix (principal); F10.90 Alcohol use, unspecified, uncomplicated; F17.210 Nicotine dependence, cigarettes, uncomplicated; Z90.49 Acquired absence of other specified parts of digestive tract | CPT/HCPCS: 96127; 99495 ==

== ENCOUNTER 2025-03-09 11:01 | Outpatient (AMB) | payer MEDICARE, SELFPAY ==
--- NOTE | 2025-03-09 11:12 | A.OFFVIS_ITS ---
Vital Signs 03/09/25 11:18 Height 4 ft 11 in Weight 109 lb BMI 22.0 BP 176/91 H Blood Pressure Location Rt brachial Position Sitting Pulse 78 Intake Visit Reasons: 2wk follow up Intake Note: Patient here for 2wk follow up. Last visit 02-23-2025. Surgery: exploratory laparotomy, ileocolectomy, appendectomy, omental biopsy, aspiration peritoneal fluid for cytology on 02-08-2025. Of note patient referred to [facility] oncology. Dx: Metastatic appendiceal adenoca rcinoma. Seen by Dr. Ch on 03-08-2025. OV note available for review. Chainstitch Elastic Attacher Required: No Allergies Penicillins [PENICILLINS] Allergy (Intermediate, Verified 02/26/25 10:27) RASH penicillin V Allergy (Unknown, Verified 02/26/25 10:27) rash clams [CLAMS] Adverse Reaction (Intermediate, Verified 02/26/25 10:27) NAUSEA HPI Comments Details: Patient presents with the for 2nd postop visit. She was also seen yesterday by Oncology. Patient was tolerating a diet. He is having regular bowel habits. Minimal incisional issues. She is slowly but steadily increasing her activity level. Oncology note reviewed [facility] Medical History (Updated 02/24/25 @ 00:01 by Lesly Prince) Memory loss Osteopenia Osteoarthritis of right hip Mild cognitive impairment Skin lesion Pure hypercholesterolemia Surgical History (Updated 03/09/25 @ 11:25 by Jose Marino MD) S/P small bowel resection History of partial colectomy History of appendectomy Hx of colonoscopy (~2015) History of wisdom tooth extraction History of rectal polypectomy Family History Father Heart attack Mother Ovarian cancer Maternal Grandmother Breast cancer Social History Household Members: Spouse Housing: House Are you a primary critical care physician to a significant other at home: No Do you presently have visiting nurse or other home services: No Alcohol intake: current Alcohol intake frequency: 0-2 drinks per day Alcohol type: beer and hard liquor Comment: telesitter placed Patient Tobacco Use Status: Current everyday Tobacco user Tobacco use type: Cigarette Cigarette Packs Per Day: 0.5 Cigarettes Per Day: 10 e-Cigarette/Vaping Use: Never Used Second Hand Smoke Exposure: Yes Substance Use Type: Marijuana service: No Current occupational status: retired Cognitive needs: No Hearing needs: No Vision needs: Yes (Reading glasses) Physical Exam Vital Signs: Last Vital Signs Pulse 78 03/09/25 11:18 BP 176/91 H 03/09/25 11:18 BMI result Body Mass Index 22.0 GI Other: Abdomen is soft. Incision clean dry and intact healing well Assessment & Plan Assessment & Plan (1) Status post exploratory laparotomy: Code(s): Z98.890 - Other specified postprocedural states Category: Medical (2) S/P small bowel resection: Code(s): Z90.49 - Acquired absence of other specified parts of digestive tract Category: Medical Plan Wound surgical perspective, patient was convalesced very well. Further plan is per oncologic consultation. Consideration for HIPEC is being considered with possible neoadjuvant chemotherapy. Should the patient will require a port, she has been instructed to give me a call and we will provide this service. Patient otherwise will follow up p.r.n.. Coding Level of Care Code Global (69654) Diagnoses Status post exploratory laparotomy Z98.890 S/P small bowel resection Z90.49
[2025-03-09 11:18] VITALS: BP 176/91; PULSE 78; BMI 22.0
--- OUTSIDE RECORDS SUMMARY | 2025-03-09 13:11 | XMS_ITS ---
Author Organization [facility] Address [address] [place] [address] Care Team Providers Care Tax Services Specialist Name Role Phone Bárbara Plummer Primary Care Provider Unavailab Biju Tolliver Unavailable [phone] REASON FOR VISIT screening,hx polyps Encounters Encounter Location Date Provider Diagnosis [facility] Out[place] [address] [place] [phone] 01/27/2025 Biju Mccormick Colon cancer scree serenity [...] RADHA SCHMIDT ADOB: [birth year] (74 yo F)Acc No.[id number]:01/27/2025 COLON WITH MAC Patient:?RADHA SCHMIDT Provider:?Biju Mccormick MD :1950???Age:74 Y???Sex:Female D ate:01/27/2025 Address:[address] [place] [address], [place], [place] Pcp:Bárbara Mehta Subjective: * Chief Complaints: * ???1. Screening,hx polyps. * Medical History:? Objective: * Vitals:? Assessment: * Assessment: 1.?Colon cancer screening - Z12.11 (Primary)???2.?Personal history of colonic polyps - Z86.0100???3.?Other specified diseases of appendix - K38.8???4.?Diverticulosis of large intestine without perforation or abscess without bleeding - K57.30???5.?Other hemorrhoids - K64.8??? Plan: * Treatment: * Procedure Codes:?55066 COLON OSCOPY AND BIOPSY, Modifiers: PT , [...] MD Date:? 025 Generated for Elliott gotti/Martín/eTdianasmitting on:?03/09/2025 01:10 PM EDT
--- OUTSIDE RECORDS SUMMARY | 2025-03-09 13:11 | XMS_ITS ---
Author Organization [facility] Address [address] [place] [address] Care Team Providers Care Hospice Superintendent Name Role Phone Bárbara Plummer Primary Care Provider UnavailBiju Madsen Unavailable [phone] Allergies Allergen (clinical drug ingredient) Drug/Non Drug Allergy documented on EMR Reaction Allergy Type Onset Date Status Penicillin Unknown Drug Allergy Active Results Component Value Reference Range Notes Prothrombin Time INR Reviewed date:02/02/2025 09:24:03 AM Interpretation: Performing Lab:[facility], [address] [place] [phone] Notes/Report: Prothrombin Time 9.7 10.9-12.4 SEC INTERNATIONAL [...] Risk Notes Problem Malignant tumor of appendix (215457729) 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TAURUS SCHMIDTTCHEN A Provider:?Biju Mccormick MD :1950???Age:74 Y???Sex:Female D ate:01/29/2025 Address:[address] [place], [place] [phone] Pcp:Bárbara Mehta Subjective: * Chief Complaints: * ???Patient presents today fo r a colonoscopy follow up, PAIN * Medical History:? * Surgical History:?Rolla petr th extraction Cauterization for epistaxis * Hospitalization/Major Diagno stic Procedure:?No Hospitalization History. * Family History:?Father: dece ased, diagnosed with Heart disease.?Mother: .? No colitis, celiac disease, nor colorectal cancer.? No family history of liver cancer. * Social History:?Tobacco Use:?Tobacco Control (Standard)?.?Drugs/Alcohol:?Alcohol Screen?Points: 4, Interpretation: Positive.?Miscellaneous:?Marital status: . Occupation: retired. ???Smoker 1/2 ppd. She has at least 2 drinks per day---she does not admit it, but her states that she is an alcoholic. * Medications:?TakingSertralin e HCl 100 MG Tablet 1 tablet Orally Once a day Latanoprost 0.005 % Solution 1 drop into affected eye in the evening Ophthalmic Once a day Multi Vitamin/Minerals Tablet Orally Timolol Maleate 0.5 % Solution Ophthalmic Medication List reviewed and reconciled with the patientTaking Sertraline HCl 100 MG Tablet 1 tablet Orally Once a day Taking Latanoprost 0.005 % Solution 1 drop into affected eye in the evening Ophthalmic Once a day Taking Multi Vitamin/Minerals Tablet Orally Taking Timolol Maleate 0.5 % Solution Ophthalmic Medication List reviewed and reconciled with the patient * Allergies:?Penicillinyes[All ergies Verified] Objective: * Vitals:?Wt: 110 lbs, Ht: 4 f t 11 in, BMI: 22.21 Index, BP: 001/01 mm Hg, Temp: 97.5, Wt-k.9. Assessment: * Assessment: 1.?Appendix carcinoma - C18. 1 (Primary)???2.?Diverticulosis - K57.90??? Plan: * Treatment: ? Value Reference Range ?Prothrombin Time 9.7 L 10.9-1 2.4 - SEC * ?INTERNATIONAL NORM RATIO 0.8 L 0.9-1.1 - ?Imaging: CT ABD & PELVIS WITH CONTRAST* Appendiceal cancer01/29/25 no pa req for CPT 47041 ref # [id number] for 02/08/25 at 2:30 pmarrival for 12:30 pm, [facility] [place] [facility] 2[facility] FloorRobertoAlexn 02/01/2025 09:41:10 AM EDT - pt notified by radiology and order mailed to pt as well * Notes: Appt with Dr. Marino??2.?Diverticulosis?LAB: CHEM 7 PROFILE ?LAB: LIVER PROFILE ?LAB: CEA ?LAB: CBC w DIFF ?LAB: Prothrombin Time INR (Collection Date & Time - 02/01/2025 12:28 PM)* ? Value Reference Range ?Prothrombin Time 9.7 L 10.9-1 2.4 - SEC * ?INTERNATIONAL NORM RATIO 0.8 L 0.9-1.1 - ?Imaging: CT ABD & PELVIS WITH CONTRAST* Appendiceal cancer01/29/25 no pa req for CPT 04933 ref # [id number] for 02/08/25 at 2:30 pmarrival for 12:30 pm, fasting 3 hrs [facility] Radiology 2nd FloorLignumtriciaAlexn 02/01/2025 09:41:10 AM EDT - pt notified by radiology and order mailed to pt as well * * Procedure Codes:?3017F COLOR ECTAL CA SCREEN DOC [id number] Pt scrn tbco and id as [id number] BP SCR NOT PRFRM REC REASON NOS * Preventive Medicine:? ??Urinary Incontinence:?Urinary Incontinence?Assessment:?Absent,?Plan of care documented:?No, reason not specified.? ??Screenings:?Fall Risk Screening?Fall Risk Assessment:?No falls in the past year,?Screening:?No falls in the past year,?Assessment:?Not performed, no reason specified,?Plan of Care:?Not documented, no reason specified.? * Follow Up:?Fall2024 * * Sign off status: Completed true * Provider:?Biju Mccormick MD Date:? 025 Generated for Elliott gotti/Martín/eTdianasmitting on:?03/09/2025 01:10 PM EDT
--- OUTSIDE RECORDS SUMMARY | 2025-03-09 13:11 | XMS_ITS ---
Author Organization [facility] Address [address] [place] [address] Care Team Providers Care Ultrasound Tech Name Role Phone Bárbara Pulmmer Primary Care Provider Unavailab Biju Tolliver Unavailable [phone] REASON FOR VISIT abd pain Encounters Encounter Location Date Provider Diagnosis [facility] [address] [place] [address] 02/05/2025 Biju Mccormick Plan Of Treatment No Information Progress Notes * RADHA SCHMIDT ADOB: [birth year] (74 yo F)Acc No.[id number]:02/05/2025 Patient:?RADHA SCHMIDT :1950???Age:74 Y???Sex:Female Address:[address] [place] [address] * true * Date:? Generated for Elliott gotti/Martín/eTransmitting on:?03/09/2025 01:11 PM EDT
--- OUTSIDE RECORDS SUMMARY | 2025-03-09 13:11 | XMS_ITS | Patient Health Record ---
Author Organization [facility] Address [address] [place] [address] Care Team Providers Care Masonry Supervisor Name Role Phone Bárbara Plummer Primary Care Provider Biju Ba [phone] Allergies Allergen (clinical drug ingredient) Drug/Non Drug Allergy documented on EMR Reaction Allergy Type Onset Date Status Penicillin Unknown Drug Allergy Active Results Component Value Reference Range Notes Prothrombin Time INR Reviewed date:02/02/2025 09:24:03 AM Interpretation: Performing Lab:[facility], [address] [place] [phone] Notes/Report: Prothrombin Time 9.7 10.9-12.4 [employer] [...] (Not yet reviewed by provider) Interpretation: Performing Lab:[facility], [address] [place] [phone] Notes/Report: ------ Name: Radha Schmidt Age/Sex: 74/F : 1950 Unit#: [id number] Attend Dr: Biju Mccormick MD Re01/27/25 Status : [facility] Location: [facility] Disch: ------ SPEC : [id number] RECD : 01/27/25-1199 STATUS: PASHA RIVERA NUM: [id number] MALU: 01/27/25-1058 [facility] DR: Biju Mccormick MD ENTERED: 01/27/25-10 [...] Radha Schmidt Age/Sex: 74/F : 1950 Unit#: [id number] Attend Dr: Biju Mccormick MD Re01/27/25 Status : [facility] [place] Location: [facility] Disch: ------ SPEC : [id number] RECD : 01/27/25-1200 STATUS: PASHA RIVERA NUM: [id number] MALU: 01/27/25-[address]: Biju Mccormick MD [...] Special studies orde red and performed at [facility]: Immunostains for CK7, CK20, CDX2, synaptop hysin, and chromogranin on A1. Special [facility]de [facility]: Immunostains for MLH1, MSH2, MSH6 and PMS2 on A1. Copies To: Bárbara Plummer MD [facility],[place] [address] [place] [address] [facility] [address] [place] [address] ------ Signed (signature on file) Mary Ceja 02/01/25 1026 ------ END OF REPORT Complete Blood Count Auto Di ff Reviewed date:02/02/2025 12:49:40 AM Interpretation: Performing Lab:[facility], [address] [place] [phone] Notes/Report: White Blood Count 8.7 4.8-10.8 X10*3/uL [...] Panel Reviewed date:02/02/2025 12:50:31 AM Interpretation: Performing Lab:[facility], [address] [place] [phone] Notes/Report: Bilirubin Total 0.5 0.0-1.0 mg/dL Bilirubin Direct 0.1 0.0-0.5 mg/dL Aspartate Amino Transferase 25 5-31 U/L Alanine Aminotransferase 16 0-31 U/L Total Protein 8.0 6.5-8.0 g/dL Albumin Level 4.5 3.5-5.0 g/dL Alkaline Phosphatase 74 39-117 U/L Basic Metabolic Panel Reviewed date:02/02/2025 12:49:03 AM Interpretation: Performing Lab:[facility], [address] [place] [phone] Notes/Report: Sodium 142 135-145 mmol/L Potassium 3.9 [...] Antigen Reviewed date:02/02/2025 12:50:08 AM Interpretation: Performing Lab:[facility], [address] [place] [phone] Notes/Report: Carcinoembryonic Antigen 5.00 CEA Reference Range: [...] Problem Status W/U Status Risk Notes Problem 813629553 Encounter for screening for malignant neoplasm of colon (Z12.11) Active confirmed Problem 890275121 History of adenomatous polyp of colon (Z86.010) Active confirmed Problem Pre-procedure evaluation check (997114092) Encounter for other preprocedural examination (Z01.818) Active confirmed Problem 127219119 Irritable bowel syndrome with diarrhea (K58.0) Active confirmed Problem Screening for malignant neoplasm of rectum (513393887) Encounter for screening for malignant neoplasm of rectum (Z12.12) Active confirmed Problem Diverticular disease of colon (744829300) Diverticulosis (K57.90) Active confirmed Problem 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 Vital Signs Temperature 97.5 degrees Fahrenheit 01/29/2025 Blood pressure diastolic 01 mm Hg 01/29/2025 Height 4 ft 11 in in 01/29/2025 Blood pressure systolic 001 mm Hg 01/29/2025 Weight 110 lbs 01/29/2025 BMI 22.21 kg/m2 01/29/2025 Encounters Encounter Location Date Provider Diagnosis [facility] [address] [place] [phone] 01/27/2025 Biju Mccormick Colon cancer screeni ng Z12.11 ; Personal history of colonic polyps Z86.0100 ; Other specified diseases of appendix K38.8 ; Diverticulosis of large intestine without perforation or abscess without bleeding K57.30 and Other hemorrhoids K64.8 [facility] [address] [place] [phone] 10/08/2024 Biju Mccormick History of adenomato us polyp of colon Z86.010 ; Encounter for other preprocedural examination Z01.818 and Encounter for screening for malignant neoplasm of colon Z12.11 [facility] [address] [place] [phone] 01/29/2025 Biju Mccormick Diverticulosis K57.9 0 and Appendix carcinoma C18.1 [facility] [address] [place] [phone] 10/28/2024 Biju Mccormick [facility] [address] [place] Sanchez [phone] 02/05/2025 Biju Mccormick Assessments Encounter Date Diagnosis (ICD Code) Assessment Notes Treatment Notes Treatment Clinical Notes Section Notes 01/27/2025 Colon cancer screening (ICD-10 - Z12.11) 01/27/2025 Personal history of colonic polyps (ICD-10 - Z86.0100) 10/08/2024 History of adenomatous polyp of colon [...] to keep you advised of her progress. 01/29/2025 Diverticulosis (ICD-10 - K57.90) 01/29/2025 Appendix carcinoma (ICD-10 - C18.1) Appt with Dr. Marino 01/27/2025 Other specified diseases of appendix (ICD-10 [...] Insured Coverage Start Date Coverage End Date [facility] [address] [address] [place] [address] [id number] RADHA SCHMIDT Self - patient is the insured Medical (General) History Medical History History ICD Code Colonoscopy 2003 with small tubular adenomas removed; colonoscopy in 2009 was negative except for diverticulosis and internal hemorrhoids Depression/anxiety Denies WI,DM,CVA,Lung disease,renal dise ase Hyperlipidemia Glaucoma Osteoporosis Colonoscopy 02/2016 with 3 small tubular adenomas removed Surgical History Surgery Date(Month/Year) Cauterization for epistaxis [place] teeth extraction
== END 2025-03-09 11:33 | disposition home or self-care (01) ==
LOC: HO.HGS 11:01
PROVIDERS: PCP Internal Medicine; Visit Provider Surgery
DX: Z98.890 Other specified postprocedural states (principal); Z90.49 Acquired absence of other specified parts of digestive tract
CPT/HCPCS: 99024

== ENCOUNTER → 2025-03-09 11:01 | Outpatient (BNVA) | payer MEDICARE, SELFPAY | PROVIDERS: PCP Internal Medicine; Visit Provider Surgery | DX: Z09 Encounter for follow-up examination after completed treatment for conditions other than malignant neoplasm (principal); Z90.49 Acquired absence of other specified parts of digestive tract; Z98.890 Other specified postprocedural states | CPT/HCPCS: 99212 ==

== ENCOUNTER → 2025-06-25 10:30 | Outpatient (BNV) | payer MEDICARE, SELFPAY | PROVIDERS: PCP Internal Medicine; Visit Provider Radiology Body Imaging | DX: Z12.31 Encounter for screening mammogram for malignant neoplasm of breast (principal) | CPT/HCPCS: 77063; 77067 ==

== ENCOUNTER 2025-06-25 10:31 | Outpatient (REF) | payer MEDICARE, SELFPAY ==
--- OUTSIDE RECORDS SUMMARY | 2025-01-27 06:20 | XMS_ITS ---
Author Organization [facility] Address [address] [place] [address] Care Team Providers Care Dental Equipment Installer And Servicer Name Role Phone Bárbara Plummer Primary Care Provider UnavailBiju Madsen [phone] REASON FOR VISIT screening,hx polyps Encounters Encounter Location Date Provider Diagnosis [facility] [address] [place] [phone] 01/27/2025 Biju Mccormick Colon cancer scree serenity Z12.11 ; Personal history of colonic polyps Z86.0100 ; Other specified diseases of appendix K38.8 ; Diverticulosis of large intestine without perforation or abscess without bleeding K57.30 and Other hemorrhoids K64.8 Assessments Encounter Date Diagnosis (ICD Code) Assessment Notes Treatment Notes Treatment Clinical Notes Section Notes 01/27/2025 Colon cancer screening (ICD-10 - Z12.11) 01/27/2025 Personal history of colonic polyps (ICD-10 - Z86.0100) 01/27/2025 Other specified diseases of appendix (ICD-10 - K38.8) 01/27/2025 Diverticulosis of large intestine without perforation or abscess without bleeding (ICD-10 - K57.30) 01/27/2025 Other hemorrhoids (ICD-10 - K64.8) Plan Of Treatment No Information Progress Notes * RADHA SCHMIDT ADOB: [birth year] (74 yo F)Acc No.[id number]:01/27/2025 COLON WITH MAC Patient: Chava RADHA GARCIA Provider: Dana Mccormick MD :1950 A ge:74 Y S ex:Female Date:01/27/2025 Address:[address] [place], [place] [id number] Pcp:Bárbara Mehta Subjective: * Chief Complaints: * 1 . Screening,hx polyps. * Medical History: Objective: * Vitals: Assessment: * Assessment: 1. C olon cancer screening - Z12.11 (Primary) 2 . P ersonal history of colonic polyps - Z86.0100 3 . O ther specified diseases of appendix - K38.8 ? 4 . D iverticulosis of large intestine without perforation or abscess without bleeding - K57.30 5 . O ther hemorrhoids - K64.8 Plan: * Treatment: * Procedure Codes: 4 5380 COLONOSCOPY AND BIOPSY, Modifiers: PT , 0529F INTRVL 3+YRS PTS CLNSCP DOCD, 0528F RCMND FLW-UP 10 YRS DOCD * * The named appointment provid er may or may not be the originator of this progress note, and it is not deemed complete until electronically signed by the appointment provider. Sign off status: Pending * Provider: Dana Mccormick MD Date: 0 01/27/2025 Generated for Elliott gotti/Martín/Beataitting on: 0 06/25/2025 10:35 AM EDT
--- NOTE | ~2025-06-25 | MM_ITS ---
EXAMINATION: MM SCREENING DIGITAL BREAST TOMOSYNTHESIS, BILATERAL CLINICAL INFORMATION: Screening. Asymptomatic. COMPARISON: Comparison made to multiple prior, most recent May 15, 2024, and most remote June 29, 2019. TECHNIQUE: Digital breast tomosynthesis is performed in both the craniocaudal and mediolateral oblique views along with computer-aided detection (CAD). Best possible images according to the technologist notes. FINDINGS: BREAST COMPOSITION: The breasts are heterogeneously dense, which may obscure small masses (ACR BI-RADS breast composition Category c). BILATERAL BREASTS: No significant masses, suspicious calcifications or other abnormalities are seen in either breast. MM/MM tomosynthesis screening BI IMPRESSION: BILATERAL BREASTS: Negative, no mammographic evidence of malignancy. Normal interval follow-up is recommended in 12 months. ASSESSMENT: BI-RADS 1 - Negative RECOMMENDATION: Routine annual mammography screening. FOLLOW-UP: 1 year F/U This examination should not preclude the clinical evaluation of a suspicious palpable abnormality. This patient's information was entered into a reminder system with a target due date for their next mammogram. Electronically signed by: Evonne Jones MD 07/05/2025 09:26 AM EDT
== END 2025-06-25 10:32 | disposition home or self-care (01) ==
LOC: HO.MAMMO 10:31
PROVIDERS: PCP Internal Medicine; Visit Provider Internal Medicine
DX: Z12.31 Encounter for screening mammogram for malignant neoplasm of breast (principal)
CPT/HCPCS: 77063; 77067